=== PATIENT | male | born 1940 | race Caucasian/White ===

== ENCOUNTER → 2018-05-13 11:56 | Outpatient (CLI) | payer MEDICARE, SELFPAY ==
[2018-05-13 13:50] LABS: Color, Urine Yellow (Yellow); Glucose, Dipstick Normal (Normal); Ketone-Dipstick Negative (Negative); Leukocyte Esterase-Dipstick Negative /ul (Negative); Nitrite-Dipstick Negative (Negative); Occult Blood-Urine Negative /ul (Negative); Protein-Dipstick Negative (Negative); Urine Bilirubin Dipstick Negative (Negative); Urine Clarity Clear (Clear); Urine Urobilinogen Normal (Normal)
[2018-05-13 13:55] LABS: Absolute Lymphocyte Count 2.27 X10^3/ul (0.83-4.51); Basophil# 0.03 X10^3/uL; Basophil% 0.4 % (0-1); Eosinophil# 0.13 X10^3/uL; Eosinophils% 1.9 % (0-5); Hematocrit 43.5 % (40-54); Hemoglobin 14.7 g/dl (13.0-16.5); Lymphocyte # 2.27 X10^3/ul (4.0); Lymphocyte % 32.4 % (19-41); Mean Corp Hgb Conc 33.8 g/gl (32-36); Mean Corpuscular Hgb 31.4 pg (27.0-32.0); Mean Corpuscular Volume 92.9 fL (80-94); Mean Platelet Vol. 11.1 fl (6.2-12.0); Monocyte# 0.58 X10^3/uL; Monocyte% 8.3 % (0-10); Neutrophil # 3.98 X10^3/uL (2.7-7.7); Neutrophil % 56.7 % (47-70); Platelet Count 246 K/mm3 (150-450); RBC Distribution Width CV 12.5 % (11.6-14.6); RBC Distribution Width SD 41.9 fl (35.1-43.9); Red Blood Count 4.68 M/mm3 (4.6-6.2)
[2018-05-13 13:57] LABS: POSITIVE COUNT NO; POSITIVE DIFFERENTIAL NO; POSITIVE MORPHOLOGY NO
[2018-05-13 14:00] LABS: ALB/GLOB Ratio 0.9 RATIO (0.9-2.4); AST(SGOT) 19 U/L (15-37); Alanine Aminotransfer ALT/SGPT 31 U/L (16-61); Albumin, Serum 3.7 g/dL (3.2-5.0); Alkaline Phosphatase 82 U/L (45-117); Anion Gap 9 (5-15); BUN 29 mg/dL (7-18); BUN/Creat Ratio 18.4 RATIO (10-20); Calcium,Total 9.1 mg/dL (8.5-10.1); Chloride 104 mmol/L (98-107); Creatinine, Serum 1.58 mg/dL (0.70-1.30); EST Glomerular Filtration Rate 45 mL/min (>60); Est Glom Filt Rate - Afr Amer 55 mL/min (>60); Glucose 121 mg/dL (74-106); Potassium 4.5 mmol/L (3.5-5.1); Protein, Total 7.7 g/dL (6.4-8.2); Protein, Urine (Random) 9.9 mg/dL (<11.9); Protein:Creat Ratio 86 mg/g CRE (0-200); Sodium Level 141 mmol/L (136-145)
== END ==
PROVIDERS: Family Provider Family Medicine; PCP Family Medicine; Visit Provider Internal Medicine Rheumatology
DX: R76.8 Other specified abnormal immunological findings in serum (principal); M17.0 Bilateral primary osteoarthritis of knee; M21.40 Flat foot [pes planus] (acquired), unspecified foot; I10 Essential (primary) hypertension; E11.9 Type 2 diabetes mellitus without complications; E78.5 Hyperlipidemia, unspecified; G47.33 Obstructive sleep apnea (adult) (pediatric); Z86.711 Personal history of pulmonary embolism
CPT/HCPCS: 36415; 80053; 81002; 82570; 84156; 85025

== ENCOUNTER 2022-12-08 19:15 | Emergency (ER) | payer MEDICARE, SELFPAY ==
[2022-12-08 19:16] VITALS: BP 113/58; PULSE 98; RESP 16; TEMP 36.6; O2SAT 99; BMI 35.4
[2022-12-08 19:40] LABS: Bacteria 0 SEEN /hpf (None Seen); Mucous, Urine 0 SEEN /hpf (<or=2+); Red Blood Cells-Urine 0 SEEN /hpf (0-5); Squamous Epithelial Cells - UA 0 SEEN /hpf (0-5)
[2022-12-08 19:46] LABS: Color, Urine Yellow (Yellow); Glucose, Dipstick Normal (Normal); Ketone-Dipstick 5 mg/dl (Negative); Leukocyte Esterase-Dipstick 500 /ul (Negative); Nitrite-Dipstick Positive (Negative); Occult Blood-Urine 250 /ul (Negative); Protein-Dipstick 100 mg/dl (Negative); Specific Gravity, Urine 1.025 (1.002-1.030); Urine Clarity Cloudy (Clear); Urine Urobilinogen Normal (Normal)
[2022-12-08 19:47] LABS: Urine Bilirubin Dipstick 1 mg/dL (Negative)
[2022-12-08 19:54] LABS: White Blood Cells >100 SEEN /hpf (0-5)
--- NOTE | 2022-12-08 22:20 | EDS_ITS ---
HPI History of Present Illness Chief Complaint: Complaint Narrative Narrative: Patient is an 82-year-old male who has past medical history of hypertension hyperlipidemia pulmonary embolism and factor V Leiden deficiency currently on Xarelto. He states that today he felt like he has been having to urinate frequently. He states there is mild discomfort with doing so. He states he does not typically have a problem with urination and as he is gone multiple times today and feels that he is unable to control his bladder he has concern for infection and therefore comes in for evaluation. The patient denies any rectal pain or rectal discharge and states he does not have a history of prostate issues [facility] Home Medications aspirin 81 mg chewable tablet 81 mg PO DAILY@0800 01/21/16 [History Last Taken Unknown] duloxetine 60 mg capsule,delayed release 60 mg PO DAILY 01/21/16 [History Last Taken Unknown] lisinopril 10 mg tablet 10 mg PO DAILY 01/21/16 [History Last Taken Unknown] rosuvastatin 5 mg tablet (Crestor) 5 mg PO MOWEFR 01/21/16 [History Last Taken Unknown] rivaroxaban 15 mg tablet (Xarelto) 15 mg PO BIDCM ##60 02/07/17 [Rx Last Taken Unknown] cephalexin 500 mg capsule 500 mg PO TID 7 days #21 caps 12/08/22 [Rx Last Taken Unknown] phenazopyridine 200 mg tablet (Pyridium) 200 mg PO TID PRN pain 2 days #6 tabs 12/08/22 [Rx Last Taken Unknown] Allergy/AdvReac Type Severity Reaction Status Date / Time simvastatin AdvReac Other Verified 12/08/22 19:21 Social History Smoking Status: Former smoker ROS [facility] ED Constitutional Constitutional ED: Denies chills or fever(s) ENT ENT ED: Denies sore throat Cardiovascular Cardiovascular: Denies chest pain, palpitations or racing heartbeat Respiratory/Chest Respiratory/Chest: Denies cough or dyspnea Gastrointestinal Gastrointestinal: Denies abdominal pain, diarrhea, nausea or vomiting Genitourinary Genitourinary ED: Reports dysuria and urinary frequency; Denies hematuria Musculoskeletal Musculoskeletal: Denies back pain Integumentary Denies rash Neurologic Neurologic: Denies headache(s) or weakness Hematologic/Lymphatic Hematologic/Lymphatic: Reports easy bleeding and easy bruising EXAM Physical Exam Const Vital Signs: 12/08/22 19:16 Temperature 97.8 F Temperature Source Temporal Pulse Rate 98 Respiratory Rate 16 Blood Pressure 113/58 L Blood Pressure Mean 76 Pulse Ox 99 Oxygen Delivery Method Room Air Positive well nourished, well developed and obese General Appearance ED: well developed Nutritional Appearance: obese Eyes PERRL and EOMs intact bilaterally Neck supple Resp normal respiratory effort and clear to auscultation bilaterally Cardio regular rate and regular rhythm GI normal to inspection, nondistended, normoactive bowel sounds, non-distended and no masses GI Narrative: There is slight suprapubic tenderness to palpation. There is no organomegaly to suggest acute urinary retention. No voluntary guarding or rigidity. No pulsatile mass Auscultation: normoactive bowel sounds Palpation: soft Narrative: Normal genitalia. There is no blood or large from the urethral meatus. No phimosis or paraphimosis noted. No testicular swelling or masses. No soft tissue changes to suggest Jude's gangrene Back/Spine no CVA tenderness Extremity normal to inspection Neuro oriented x3 and CN's II-XII intact bilaterally Sensorium / Orientation: alert Psych mental status grossly normal Skin no rashes or lesions noted MDM MDM MDM Narrative Medical decision making narrative: Patient presented to the ER afebrile and normotensive and reported increased urinary frequency with mild dysuria. As he does not have derangement to his vital signs I do not feel there is need for work-up other than a UA at this time. The urine showed greater than 100 white blood cells but no obvious bacteria. At this time I do feel the patient is having a urinary tract infection. He has symptoms of urinary frequency and urgency and slight dysuria he is got mild suprapubic tenderness. He does not have CVA pain to suggest acut e pyelonephritis and there is no distended bladder on exam going against acute urinary retention. He is awake he is alert he is oriented and therefore my concern that he is progressing to a urosepsis is low especially with stable vital. Therefore at this time his urine will be sent for culture and will be started antibiotics but is otherwise safe for discharge Lab Data Attestation: I reviewed the patient's lab results. Labs: Laboratory Results - last 24 hr 12/08/22 19:35 Urine Color Yellow Urine Clarity Cloudy Urine pH 5.0 Ur Specific [place] 1.025 Urine Protein 100 H Urine Glucose (UA) Normal Urine Ketones 5 H Urine Occult Blood 250 H Urine Nitrite Positive H Urine Bilirubin 1 H Urine Urobilinogen Normal Ur Leukocyte Esterase 500 H Urine RBC 0 SEEN Urine WBC >100 SEEN Ur Squamous Epith Cells 0 SEEN Urine Bacteria 0 SEEN Urine Mucus 0 SEEN Discharge Plan Triage Chief Complaint: Complaint ED Provider: Santos Pathak Dx/Rx/DC Orders Clinical Impression: Urinary tract infection, Hypertension, Hyperlipidemia, Factor V deficiency, Current use of residential anticoagulation Instructions: ED Prostatitis, ED Urinary Tract Infections in Men Prescriptions: New cephalexin 500 mg capsule 500 mg PO TID 7 Days Qty: 21 0RF phenazopyridine [Pyridium] 200 mg tablet 200 mg PO TID PRN (Reason: pain) 2 Days Qty: 6 0RF No Action lisinopril 10 MG tablet 10 mg PO DAILY aspirin 81 MG tablet,chewable 81 mg PO DAILY@0800 rosuvastatin [Crestor] 5 MG tablet 5 mg PO MOWEFR duloxetine 60 MG capsule 60 mg PO DAILY rivaroxaban [Xarelto] 15 MG tablet 15 mg PO BIDCM Qty: 60 0RF Primary Care Provider: Dane Cobb Referrals: Dane Cobb MD [Primary Care Provider] - Activity Restrictions/Additional Instructions: Your history and work-up today indicate you have a urinary tract infection or early prostate infection. Take your medication as directed to resolve your symptoms which would typically take about 2 days. If you are not having improvement of symptoms or any further concerns please return to the ER for repeat evaluation Disposition Disposition: Home, Self Care Discharge Date/Time: 12/08/22 22:49
--- NOTE | 2022-12-08 22:28 | ED.RN ---
PT CALLING OUT FOR HELP AT THIS TIME. PT STATES THAT HE FELL DOWN IN THE CORNER OF THE ROOM AND COULDN'T GET UP. PT WAS FOUND STANDING IN DOORWAY IN HIS SOCKS WITH HIS PANTS AROUND HIPS LOWER BUTTOCKS. PT STATES HE DID NOT HIT HIS HEAD AND HE HAS NO INJURY. CHARGE NURSE LUCILLE MADE AWARE AND DR BUTLER. NO NEW ORDERS AT THIS TIME.
[2022-12-08] MEDS: Phenazopyridine 95 MG Tablet 190 MG PO (22:44)
[2022-12-08] MEDS: Cephalexin 250 MG Capsule 500 MG PO (22:45)
== END 2022-12-08 22:49 | disposition home or self-care (01) ==
PROVIDERS: Emergency Provider Emergency Medicine; PCP Family Medicine; Visit Provider Emergency Medicine
DX: N39.0 Urinary tract infection, site not specified (principal); D68.2 Hereditary deficiency of other clotting factors; I10 Essential (primary) hypertension; Z79.01 Long term (current) use of anticoagulants; E78.5 Hyperlipidemia, unspecified; Z87.891 Personal history of nicotine dependence; R35.0 Frequency of micturition; R30.0 Dysuria; E66.9 Obesity, unspecified
CPT/HCPCS: 99283; 81001; 87077; 87086; 87088; 87186

== ENCOUNTER 2022-12-11 10:19 | Observation (INO) | payer MEDICARE, SELFPAY ==
[2022-12-11 10:20] VITALS: BP 138/73; PULSE 106; RESP 14; TEMP 36.6; O2SAT 98; BMI 33.1
--- NOTE | 2022-12-11 10:43 | ED.VIS.GI ---
HPI HPI - GI History of Present Illness Chief Complaint: Weakness Informant: patient Abdominal Pain/Flank Pain Onset: - (No abdominal pain) Nausea/Vomiting/Emesis GI Symptom: Negative for Nausea or Vomiting Diarrhea/Melena/Hematochezia GI Symptom: Positive for Diarrhea; Negative for Melena or Hematochezia Onset: Days (3-4) Stool Quality: Positive for Watery; Negative for Black or Maroon Severity: Severe (More than 10/day) Associated Symptoms Associated Symptoms: Negative for Dysuria, Frequency or Hematuria Narrative Narrative: Patient was seen here 3 4 days ago, he was having urinary frequency and some discomfort like he maybe had a UTI, and indeed he did. He was having diarrhea prior to being seen in the emergency department as well, he was diagnosed with a urinary tract infection and placed on cephalexin which she has been taking. Diarrhea has progressed, he is having a lot of it and he is having rectal urgency with very little warning before he needs to have it, he denies any abdominal pain, nausea, vomiting, but admits that he is not eating and not drinking any fluids except for an occasional diet Pepsi. He is not drinking any water and when asked why he states it is because he does not like it. He states I was told that other beverages do not count. He is feeling very weak all over, denies any fevers or chills. He denies travel out of the area recently, no surgeries or hospitalizations in the last couple months, he has no history of C. difficile that he knows of, no known sick contacts with diarrhea recently, and he denies being on any antibiotics prior to this course in the last couple months (that he can recall). [facility] Medical History (Updated 12/11/22 @ 12:[address] Micah Love MD) Diabetes Factor V deficiency HTN (hypertension) Hx pulmonary embolism Home Medications duloxetine 60 mg capsule,delayed release 60 mg PO DAILY 01/21/16 [History Last Taken Unknown] lisinopril 10 mg tablet 10 mg PO DAILY 01/21/16 [History Last Taken Unknown] rosuvastatin 5 mg tablet (Crestor) 5 mg PO MOWEFR 01/21/16 [History Last Taken Unknown] rivaroxaban 15 mg tablet (Xarelto) 15 mg PO BIDCM ##60 02/07/17 [Rx Last Taken Unknown] eluxadoline 100 mg tablet (Viberzi) 200 mg PO DAILY 12/11/22 [History Last Taken Unknown] isosorbide mononitrate 30 mg tablet,extended release 24 hr 30 mg PO DAILY 12/11/22 [History Last Taken Unknown] omega-3 fatty acids 1,000 mg PO DAILY 12/11/22 [History Last Taken Unknown] saxagliptin 2.5 mg tablet 2.5 mg PO DAILY 12/11/22 [History Last Taken Unknown] Allergy/AdvReac Type Severity Reaction Status Date / Time simvastatin AdvReac Other Verified 12/11/22 10:22 Social History Smoking Status: Former smoker ROS ROS ED Constitutional Constitutional ED: Reports fatigue and weakness; Denies body ache(s), chills or fever(s) Eyes Eyes: Denies change in vision or diplopia ENT ENT ED: Denies rhinorrhea or sore throat Cardiovascular Cardiovascular: Denies chest pain or palpitations Respiratory/Chest Respiratory/Chest: Denies cough or dyspnea Gastrointestinal Gastrointestinal: Reports diarrhea; Denies abdominal pain, nausea or vomiting Genitourinary Genitourinary ED: Denies dysuria or hematuria Musculoskeletal Musculoskeletal: Reports other Details: Arthralgias in hips, knees, ankles mostly when trying to use them ; Denies back pain or neck pain Integumentary Denies abscess or rash Neurologic Neurologic: Denies headache(s), paresthesias or weakness Psychiatric Psychiatric: Denies anxiety or suicidal thoughts EXAM Physical Exam Const Vital Signs: 12/11/22 10:20 12/11/22 10:34 Temperature 97.9 F Temperature Source Temporal Pulse Rate 106 H Respiratory Rate 14 Respiratory Effort Normal Respiratory Pattern Normal Blood Pressure 138/73 H Blood Pressure Mean 94 Pulse Ox 98 Oxygen Delivery Method Room Air Positive well nourished, well developed and obese Constitutional Narrative: Well-appearing in no distress General Appearance ED: well developed and NAD Nutritional Appearance: obese HEENT Reports moist mucous membranes normocephalic and atraumatic Eyes PERRL and EOMs intact bilaterally Neck full ROM, no lymphadenopathy and supple Resp normal respiratory effort and clear to auscultation bilaterally Cardio regular rate, regular rhythm and no murmurs Cardio Narrative: Mildly tachycardic GI non-tender and non-distended Auscultation: normoactive bowel sounds Palpation: soft Back/Spine no CVA tenderness General Back: other FROM Extremity normal to inspection General Extremety ED: Negative for edema, pulses abnormal or tenderness General Extremity: Negative for edema or pulses abnormal Neuro oriented x3, CN's II-XII intact bilaterally and no sensory deficits noted Sensorium / Orientation: awake and alert Motor Exam: strength 5/5 throughout Skin no rashes or lesions noted and no wounds MDM MDM MDM Narrative Medical decision making narrative: I reviewed the patient's recent urine culture from when he was diagnosed with a urine infection 3 days ago; it shows E. coli that is sensitive to the antibiotic he is on, 80-100,000 CFU per mL. Patient was given IV fluids while labs were obtained. He does have HORTENCIA consistent with dehydration. We given some IV fluids here. He did not have major improvement and still feeling very ill, he feels like he is too sick to go home. He is having active diarrhea here in emergency department, I am going to send for C. difficile and enteric bacterial panel testing. He does appear to still have infection in the urine, and as above appears to be on an appropriate antibiotic for that. Patient is having some mild gross hematuria, there are no clots or retention and it is transparent at this time. Discussed with hospitalist. Lab Data Attestation: I reviewed the patient's lab results. Labs: Laboratory Results - last 24 hr 12/11/22 12/11/22 12/11/22 10:50 10:50 11:25 WBC 13.1 H RBC 4.28 L Hgb 13.3 Hct 40.0 MCV 93.5 MCH 31.1 MCHC 33.3 RDW Std Deviation 44.6 H RDW Coeff of Jarad 13.0 Plt Count 232 MPV 10.9 Immature Gran % (Auto) 0.500 Neut % (Auto) 85.9 H Lymph % (Auto) 5.3 L [place] % (Auto) 6.7 Eos % (Auto) 1.2 Baso % (Auto) 0.4 Absolute Neuts (auto) 11.2 H Absolute Lymphs (auto) 0.69 L Nucleated RBC % 0 Sodium 136 Potassium 3.7 Chloride 99 Carbon Dioxide 24.0 Anion Gap 13 BUN 62 H Creatinine 2.95 H Estim Creat Clear Calc 18.68 Est GFR (MDRD) Af Amer 26 L Est GFR (MDRD) Non-Af 22 L BUN/Creatinine Ratio 21.0 H Glucose 115 H Calcium 9.1 Total Bilirubin 0.80 AST 45 H ALT 29 Alkaline Phosphatase 115 Total Protein 7.9 Albumin 3.0 L Globulin 4.9 H Albumin/Globulin Ratio 0.6 L Urine Color SEE COMMENT BELOW Urine Clarity Sl. Cloudy Urine pH 5.0 Ur Specific [place] 1.020 Urine Protein 100 H Urine Glucose (UA) Normal Urine Ketones 5 H Urine Occult Blood 150 H Urine Nitrite Positive H Urine Bilirubin 6 H Urine Urobilinogen 8 H Ur Leukocyte Esterase 500 H Urine RBC 10-25 SEEN Urine WBC 25-50 SEEN Ur Squamous Epith Cells 0-5 SEEN Urine Bacteria 2+ Coarse Granular Casts 0-5 SEEN Urine Mucus 0 SEEN Discharge Plan Triage Chief Complaint: Weakness Other Complaint: Diarrhea ED Provider: Micah Love Dx/Rx/DC Orders Clinical Impression: HORTENCIA (acute kidney injury), Urinary tract infection, Acute dehydration, Acute diarrhea, Anticoagulated Prescriptions: No Action lisinopril 10 MG tablet 10 mg PO DAILY rosuvastatin [Crestor] 5 MG tablet 5 mg PO MOWEFR duloxetine 60 MG capsule 60 mg PO DAILY Xarelto 15 MG tablet 15 mg PO BIDCM Qty: 60 0RF isosorbide mononitrate 30 mg Tablet Extended Release 24 Hr 30 mg PO DAILY [place] 3 Capsule 1,000 mg PO DAILY saxagliptin 2.5 mg Tablet 2.5 mg PO DAILY Viberzi 100 mg Tablet 200 mg PO DAILY Rx Instructions: must administer with a meal/food Primary Care Provider: Dane Cobb Referrals: Dane Cobb MD [Primary Care Provider] - Disposition Disposition: Acute Care Hospital [facility]
[2022-12-11 11:06] LABS: Absolute Lymphocyte Count 0.69 X10^3/uL (0.83-4.51); Absolute Neutrophil Count 11.2 X10^3/uL (2.0-7.7); Basophil# 0.05 X10^3/uL; Basophil% 0.4 % (0-1); Eosinophil# 0.16 X10^3/uL; Eosinophils% 1.2 % (0-5); Hemoglobin 13.3 g/dL (13.0-16.5); Lymphocyte # 0.69 X10^3/ul (0.83-4.51); Lymphocyte % 5.3 % (19-41); Mean Corp Hgb Conc 33.3 g/dL (32-36); Mean Corpuscular Hgb 31.1 pg (27.0-32.0); Mean Corpuscular Volume 93.5 fL (80-94); Mean Platelet Vol. 10.9 fl (6.2-12.0); Monocyte# 0.87 X10^3/uL; Monocyte% 6.7 % (0-10); NRBC Flagged by Analyzer 0 % (0-5); Neutrophil # 11.23 X10^3/uL (2.7-7.7); Neutrophil % 85.9 % (47-70); Platelet Count 232 K/mm3 (150-450); RBC Distribution Width SD 44.6 fl (35.1-43.9); Red Blood Count 4.28 M/mm3 (4.6-6.2); White Blood Count 13.1 K/mm3 (4.4-11.0)
[2022-12-11 11:21] LABS: ALB/GLOB Ratio 0.6 RATIO (0.9-2.4); AST(SGOT) 45 U/L (15-37); Alanine Aminotransfer ALT/SGPT 29 U/L (16-61); Alkaline Phosphatase 115 U/L (45-117); Anion Gap 13 (5-15); BUN 62 mg/dL (7-18); Calcium,Total 9.1 mg/dL (8.5-10.1); Chloride 99 mmol/L (98-107); Creatinine, Serum 2.95 mg/dL (0.70-1.30); EST Glomerular Filtration Rate 22 mL/min (>60); Est Glom Filt Rate - Afr Amer 26 mL/min (>60); Estimated Creatinine Clearance 18.68 ml/min; Globulin 4.9 g/dL (2.2-4.2); Glucose 115 mg/dL (74-106); Potassium 3.7 mmol/L (3.5-5.1); Protein, Total 7.9 g/dL (6.4-8.2); Sodium Level 136 mmol/L (136-145)
[2022-12-11 11:31] LABS: Mucous, Urine 0 SEEN /hpf (<or=2+)
[2022-12-11 11:32] LABS: Glucose, Dipstick Normal (Normal); Ketone-Dipstick 5 mg/dl (Negative); Leukocyte Esterase-Dipstick 500 /ul (Negative); Nitrite-Dipstick Positive (Negative); Occult Blood-Urine 150 /ul (Negative); Protein-Dipstick 100 mg/dl (Negative); Urine Clarity Sl. Cloudy (Clear); Urine Urobilinogen 8 mg/dl (Normal)
[2022-12-11 11:33] LABS: Color, Urine SEE COMMENT BELOW (Yellow); Urine Bilirubin Dipstick 6 mg/dL (Negative)
[2022-12-11 11:39] LABS: Bacteria 2+ /hpf (None Seen); Coarse Granular Cast 0-5 SEEN /lpf (0-5 /lpf); Red Blood Cells-Urine 10-25 SEEN /hpf (0-5); Squamous Epithelial Cells - UA 0-5 SEEN /hpf (0-5); White Blood Cells 25-50 SEEN /hpf (0-5)
[2022-12-11] MEDS: 0.9% Normal Saline 1,000 ML 125 ML IV (12:55)
--- NOTE | 2022-12-11 13:07 | CT_ITS ---
STUDY: CT ABDOMEN AND PELVIS WITHOUT CONTRAST REASON FOR EXAM: Male, 82 years old. Abdominal pain -- ORAL contrast only RADIATION DOSAGE (If Supplied By Facility): CTDIvol = ( 16.69 ) mGy, DLP = ( 867.56 ) mGycm TECHNIQUE: Transaxial images were obtained from the dome of the diaphragm to the symphysis pubis with oral contrast, and without intravenous contrast. Sagittal and coronal images were reconstructed. Individualized dose optimization techniques were used for this CT. COMPARISON: Comparison is made with prior study of 02/06/2017. FINDINGS: Findings suggestive of gynecomastia in the right breast. Mild degree of increased linear markings at the left lung base suggestive of scarring. Coronary artery calcification. There is decreased attenuation of the liver consistent with steatosis. Hepatomegaly. Prior cholecystectomy. Normal spleen. Normal pancreas. The patient is status post resection of the left adrenal gland. Mild degree of nonspecific bilateral perinephric stranding. No intrarenal calcifications are seen. Surgical clips are seen in the left upper quadrant. There is a small hiatal hernia. Normal small intestine. There are multiple colonic diverticula consistent with diverticulosis. The appendix is visualized and appears normal. There is diffuse atherosclerotic calcification of the abdominal aorta, without a demonstrated aneurysm. Normal inferior vena cava. Normal retroperitoneum. There is evidence of diffuse bladder wall thickening. The prostate is enlarged and measures 5.4 cm x 3.7 cm. Central prostatic calcifications are seen. Normal abdominal wall. There are degenerative changes of the visualized lumbar spine. CT/Abdomen/Pel W ORAL Cont Only IMPRESSION: Mild degree of increased linear markings at the left lung base suggestive of scarring. Questionable gynecomastia in the right breast. Hepatomegaly and diffuse fatty infiltration of the liver. Status post left adrenal resection. Sigmoid diverticulosis. Diffuse bladder wall thickening and prostatic enlargement. Electronically Signed: Arturo Sandhu MD at 15:12 EST ,
--- NOTE | 2022-12-11 13:09 | PCM.HP.STD ---
HPI - General General Date of Admission: 12/11/22 Date of Service: 12/11/22 Chief Complaint: Weakness HPI Narrative ADAN PATEL, is a 82 M who presented to the emergency department at [facility] on 12/11/2022 complaining of generalized weakness. Patient came in on 12/08/2021 complaining of urinary frequency and dysuria. At that time he was diagnosed with a urinary tract infection based off of his UA and a culture was sent. He was sent home with Keflex at that time. His urine culture has since grown out pansensitive E. coli however the patient has developed generalized weakness with severe diarrhea. The patient indicates he has diarrhea at baseline related to irritable bowel syndrome but his diarrhea has significantly worsened since he started taking antibiotics. He reports that he is having 7-8 nonbloody watery bowel movements a day. His p.o. intake has been poor as he states he is just not hungry. He states he had very minimal amounts to drink or eat since Sunday. Patient denies any changes in his urine output. He has some intermittent abdominal cramping. He reports feeling weak all over but denies any fever or chills, tingling, numbness or focal deficits. He has never had previous history of C. difficile or any contact with anybody was had C. difficile. Vital signs on presentation show a temperature of 97.8, heart rate 98, blood pressure 113/58, respiratory rate 16 and oxygen saturations are 99% room air. CBC shows a leukocytosis with a left shift. Chemistry panel shows a markedly elevated BUN and creatinine from baseline at 62 and 2.95 (baseline appears to be 1.4-1.6 however we have no recent lab). He has mild hyperglycemia with a sugar of 115 and his AST is mildly elevated 45. His UA shows an elevated specific gravity at 1.02 and shows proteinuria and ketones at 5. In the emergency department he was treated with IV fluids and enteric panel and C. difficile were ordered. Still pending on admission. Request for admission was made based on his severe weakness and renal disease/dehydration. [facility] Medical History Depression Diabetes Factor V deficiency HTN (hypertension) Hx pulmonary embolism Hyperlipidemia IBS (irritable bowel syndrome) Stage 3b chronic kidney disease (CKD) Home Medications duloxetine 60 mg capsule,delayed release 60 mg PO DAILY 01/21/16 [History Last Taken Unknown] lisinopril 10 mg tablet 10 mg PO DAILY 01/21/16 [History Last Taken Unknown] cephalexin 500 mg capsule 500 mg PO TID antibiotic 12/11/22 [History Last Taken 12/10/22] clopidogrel 75 mg tablet 75 mg PO DAILY blood thinner 12/11/22 [History Last Taken 12/10/22] eluxadoline 100 mg tablet (Viberzi) 200 mg PO DAILY 12/11/22 [History Last Taken Unknown] isosorbide mononitrate 30 mg tablet,extended release 24 hr 30 mg PO DAILY 12/11/22 [History Last Taken Unknown] loperamide 2 mg capsule 2 mg PO Q6H PRN Diarrhea 12/11/22 [History Last Taken Unknown] omega-3 fatty acids 1,000 mg capsule 1,000 mg PO DAILY supplement 12/11/22 [History Last Taken 12/10/22] rivaroxaban 15 mg tablet (Xarelto) 15 mg PO BIDCM blood thinner 12/11/22 [History Last Taken 12/10/22] rosuvastatin 5 mg tablet 5 mg PO DAILY CHOLESTEROL 12/11/22 [History Last Taken 12/10/22] saxagliptin 2.5 mg tablet 2.5 mg PO DAILY 12/11/22 [History Last Taken Unknown] Allergy/AdvReac Type Severity Reaction Status Date / Time simvastatin AdvReac Other Verified 12/11/22 10:22 no significant family history no surgical history Social History (Updated 12/11/22 @ 13:[address] Neena Fritz, DO) Smoking Status: Former smoker alcohol intake: never substance use type: does not use ROS Constitutional Constitutional: Reports anorexia, malaise and weakness; Denies change in weight, chills, fatigue, fever(s), night sweats or other Eyes Eyes: Denies blurry vision, change in eye color, change in vision, discharge from eye(s), double vision, erythema, eye pain, loss of vision or other ENT HEENT: Denies abnormal hearing, dysphagia, ear pain, epistaxis, headache(s), hearing loss, nasal congestion, nasal discharge, post nasal drip, sinus pressure, sore throat or other Cardiovascular Cardiovascular: Denies chest pain, claudication, dyspnea on exertion, edema, lightheadedness, orthopnea, palpitations, paroxysmal nocturnal dyspnea, rapid heart rate, syncope or other Respiratory/Chest Respiratory/Chest: Denies cough, dyspnea, excessive phlegm production, hemoptysis, productive cough, shortness of breath at rest, shortness of breath with exertion, wheezing or other Gastrointestinal Gastrointestinal: Reports abdominal pain and diarrhea; Denies coffee ground emesis, constipation, dyspepsia, hematemesis, hematochezia, loose stools, melena, nausea, vomiting or other Genitourinary Genitourinary: Reports difficulty urinating, nocturia, urinary frequency, urinary hesitancy and urinary incontinence; Denies burning urination, dysuria, hematuria, urinary urgency or other Musculoskeletal Musculoskeletal: Denies arthralgias, back pain, joint pain, joint stiffness, joint swelling, myalgias, neck pain or other Neurologic Neurologic: Denies abnormal gait, abnormal speech, confusion, disequilibrium, dizziness, focal weakness, headache(s), numbness, paresthesias, seizure-like activity, seizures, syncope, tingling, tremor(s) or other Psychiatric Psychiatric: Reports depression; Denies anxiety, homicidal ideation, suicidal ideation or other Endocrine Endocrinology: Denies change in body appearance, cold intolerance, excessive sweating, heat intolerance, polydipsia, polyuria or other Hematologic/Lymphatic Hematologic/Lymphatic: Denies anemia, easy bleeding, easy bruising, lymphadenopathy or other Allergic/Immunologic Allergic/Immunologic: Denies rhinitis, hives, eczemia, asthma or other Vital Signs Vital Signs Vital Signs: 12/11/22 10:20 12/11/22 10:34 Temperature 97.9 F Temperature Source Temporal Pulse Rate 106 H Respiratory Rate 14 Respiratory Effort Normal Respiratory Pattern Normal Blood Pressure 138/73 H Blood Pressure Mean 94 Pulse Ox 98 Oxygen Delivery Method Room Air Weight Weight: 98.974 kg Body Mass Index (BMI) 33.1 Physical Exam Const alert, oriented x3, no apparent distress and well nourished Constitutional Narrative: Obese, older, white male, sitting up in bed in the emergency department, appears comfortable, nontoxic General Appearance: cooperative HEENT normocephalic and head/scalp atraumatic HEENT Narrative: Mild hearing loss, mucous membranes are dry, Mallampati 3, no thrush Eyes PERRL, EOMs intact bilaterally and conjunctivae normal Eyes Narrative: No scleral icterus Neck no lymphadenopathy, supple and no carotid bruits Neck Narrative: Trachea midline, no thyroid enlargement or nodules noted Resp normal respiratory effort, no retractions, no use of accessory muscles and clear to auscultation bilaterally Resp Narrative: Mildly diminished diffusely but no adventitious sounds noted Auscultation: Negative for rales, rhonchi or wheezes Cardio regular rate, regular rhythm, S1 normal heart sound, S2 normal heart sound, no murmurs, no rub, no gallops and no clicks GI GI Narrative: Mild diffuse tenderness, bowel sounds are hyperactive, abdomen is nondistended and soft Extremity no clubbing, cyanosis or edema Extremity Narrative: 2+ pedal pulses Skin no rashes or lesions noted, no wounds, skin turgor normal, no jaundice, no petechiae and no mottling Neuro oriented x3, CN's II-XII intact bilaterally, moves all extremities and no focal motor deficits Neuro Narrative: Generalized weakness noted but no focal deficit Speech: speech normal Psych affect normal Psych Narrative: Very pleasant, appropriately interactive Results Lab / Micro Data Attestation: I reviewed the patient's lab results. Result Diagrams: 12/11/22 10:50 12/11/22 10:50 Labs: Laboratory Results - last 24 hr 12/11/22 10:50: WBC 13.1 H, RBC 4.28 L, Hgb 13.3, Hct 40.0, MCV 93.5, MCH 31.1, MCHC 33.3, RDW Std Deviation 44.6 H, RDW Coeff of Jarad 13.0, Plt Count 232, MPV 10.9, Immature Gran % (Auto) 0.500, Neut % (Auto) 85.9 H, Lymph % (Auto) 5.3 L, [place] % (Auto) 6.7, Eos % (Auto) 1.2, Baso % (Auto) 0.4, Absolute Neuts (auto) 11.2 H, Absolute Lymphs (auto) 0.69 L, Nucleated RBC % 0 12/11/22 10:50: Sodium 136, Potassium 3.7, Chloride 99, Carbon Dioxide 24.0, Anion Gap 13, BUN 62 H, Creatinine 2.95 H, Estim Creat Clear Calc 18.68, Est GFR (MDRD) Af Amer 26 L, Est GFR (MDRD) Non-Af 22 L, BUN/Creatinine Ratio 21.0 H, Glucose 115 H, Calcium 9.1, Total Bilirubin 0.80, AST 45 H, ALT 29, Alkaline Phosphatase 115, Total Protein 7.9, Albumin 3.0 L, Globulin 4.9 H, Albumin/Globulin Ratio 0.6 L 12/11/22 11:25: Urine Color SEE COMMENT BELOW, Urine Clarity Sl. 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 difficile and enteric panel are pending -Lactoferrin pending -CT of the abdomen pelvis pending -Antiemetics as needed -Clear liquid diet advance as tolerated -No history of C. difficile E. coli complicated UTI -Sensitive to Keflex therefore he has had a couple days of treatment -We will continue antibiotics but utilize IV with ceftriaxone 1 g daily for the next 8 days to complete a total of 10 days for complicated urinary tract infection HORTENCIA on CKD stage IIIb secondary to dehydration -No recent chemistry panels in our system however previously has baseline serum creatinine was between 1.4 and 1.6 -Serum creatinine on admission was 2.95 -LR at 125 cc/h -Hold lisinopril -If serum creatinine does not improve will pursue further work-up and consider Blackmon catheter -CT of the abdomen pelvis should tell us if he is having significant retention as well Poor p.o. intake -Patient without significant appetite -Start clear liquids and advance as tolerated Leukocytosis -Likely related to acute dehydration and hemoconcentration -Repeat CBC in a.m. Debility/generalized weakness -Likely related to decreased p.o. intake/dehydration/UTI/possible C. difficile -PT/OT consultation -Case management follow-up Factor V Leiden deficiency with history of PE -Patient is chronically anticoagulated with Xarelto -With renal dysfunction we will hold Xarelto and placed on Eliquis 2.5 mg twice daily -Transition back to Xarelto once serum creatinine normalizes Irritable bowel syndrome -Hold home eluxadoline Hypertension -Continue isosorbide mononitrate -Hold lisinopril with renal dysfunction -As needed hydralazine for systolic blood pressure greater 160 DM-2 -Hold home oral agents -Sliding scale 3 times daily -Accu-Cheks as ordered Hyperlipidemia -Continue rosuvastatin DVT prophylaxis -Heparin 3 times daily CODE STATUS -Full code as per discussion prior to admission Charges/Coding Visit Charges Inpatient E&M: 11578 Init Hosp L3
[2022-12-11 13:13] VITALS: BP 154/74; PULSE 89; RESP 14; TEMP 36.6; O2SAT 96
[2022-12-11 14:25] LABS: CPK Total, Creatine Kinase 444 U/L (39-308)
[2022-12-11 15:49] VITALS: BP 129/65; PULSE 70; RESP 18; TEMP 36.7; O2SAT 95
[2022-12-11 16:15] VITALS: BMI 34.9
[2022-12-11] MEDS: Ceftriaxone 1 GM/50 ML BAG IV (16:22)
[2022-12-11] MEDS: 0.9% Saline Lock 10 ML Syringe IV ×2 (16:28→17:00)
[2022-12-11] MEDS: Lactated Ringers 1,000 ML 125 ML IV (16:33)
[2022-12-11 16:35] LABS: Bedside Glucose 84 mg/dL (74-106)
[2022-12-11] MEDS: Acetaminophen 325 MG Tablet 650 MG PO (17:00)
[2022-12-11 19:20] VITALS: O2SAT 95
[2022-12-11 21:40] VITALS: BP 106/49; PULSE 69; RESP 16; TEMP 36.6; O2SAT 92
[2022-12-11] MEDS: APIXABAN 2.5 MG TABLET (WCH) PO (21:53)
[2022-12-11] MEDS: Rosuvastatin Calcium 5 MG Tablet PO (21:53)
[2022-12-12 00:25] LABS: Bedside Glucose 123 mg/dL (74-106)
[2022-12-12] MEDS: Lactated Ringers 1,000 ML 125 ML IV ×3 (00:49→18:48)
[2022-12-12 02:55] VITALS: BP 160/77; PULSE 92; RESP 18; TEMP 36.6; O2SAT 95
[2022-12-12 04:00] VITALS: BP 132/56
[2022-12-12 06:56] LABS: Bedside Glucose 102 mg/dL (74-106)
[2022-12-12 07:00] LABS: Absolute Lymphocyte Count 0.83 X10^3/uL (0.83-4.51); Absolute Neutrophil Count 5.9 X10^3/uL (2.0-7.7); Basophil# 0.03 X10^3/uL; Basophil% 0.4 % (0-1); Eosinophil# 0.21 X10^3/uL; Eosinophils% 2.8 % (0-5); Hematocrit 36.8 % (40-54); Lymphocyte # 0.83 X10^3/ul (0.83-4.51); Lymphocyte % 10.9 % (19-41); Mean Corp Hgb Conc 32.6 g/dL (32-36); Mean Corpuscular Hgb 29.9 pg (27.0-32.0); Mean Corpuscular Volume 91.8 fL (80-94); Mean Platelet Vol. 11.2 fl (6.2-12.0); Monocyte# 0.61 X10^3/uL; NRBC Flagged by Analyzer 0 % (0-5); Neutrophil # 5.88 X10^3/uL (2.7-7.7); Neutrophil % 77.4 % (47-70); Platelet Count 222 K/mm3 (150-450); RBC Distribution Width CV 13.1 % (11.6-14.6); Red Blood Count 4.01 M/mm3 (4.6-6.2); White Blood Count 7.6 K/mm3 (4.4-11.0)
[2022-12-12 07:29] LABS: ALB/GLOB Ratio 0.6 RATIO (0.9-2.4); AST(SGOT) 38 U/L (15-37); Alanine Aminotransfer ALT/SGPT 27 U/L (16-61); Albumin, Serum 2.5 g/dL (3.2-5.0); Alkaline Phosphatase 99 U/L (45-117); Anion Gap 9 (5-15); BUN 52 mg/dL (7-18); BUN/Creat Ratio 26.3 RATIO (10-20); Calcium,Total 8.8 mg/dL (8.5-10.1); Chloride 105 mmol/L (98-107); Creatinine, Serum 1.98 mg/dL (0.70-1.30); EST Glomerular Filtration Rate 35 mL/min (>60); Est Glom Filt Rate - Afr Amer 42 mL/min (>60); Estimated Creatinine Clearance 27.83 ml/min; Globulin 3.9 g/dL (2.2-4.2); Glucose 103 mg/dL (74-106); Magnesium 2.4 mg/dL (1.6-2.6); Phosphorus 2.8 mg/dL (2.5-4.9); Potassium 3.5 mmol/L (3.5-5.1); Protein, Total 6.4 g/dL (6.4-8.2); Sodium Level 137 mmol/L (136-145)
[2022-12-12 07:31] LABS: CPK Total, Creatine Kinase 252 U/L (39-308)
[2022-12-12 08:13] VITALS: BP 122/62; PULSE 73; RESP 22; TEMP 36.6; O2SAT 93
[2022-12-12] MEDS: APIXABAN 2.5 MG TABLET (WCH) PO ×2 (09:02→21:59)
[2022-12-12] MEDS: DULoxetine Hcl 60 MG Capsule PO (09:03)
[2022-12-12] MEDS: Isosorbide Mononitrate 30 MG Tablet PO (09:03)
--- NOTE | 2022-12-12 10:05 | CASEMGMT ---
Addendum entered by Gwendolyn Lopez 12/12/22 16:09: Noted therapy evals. RN CM back into pt room, pt sitting up in chair. Pt aware that no therapy is recommended. Pt agreeable. Plan: DC home. Original Note: ORTIZ JOHNS Assessment: Face to Face with pt for initial transition planning/care coordination assessment. RN ANDREAS introduced self and role at [facility], pt voices understanding and consents to assessment. Pt is A/O x4 and answers all questions appropriately at this time. Pt lying in bed in no distress on RA. Care providers, pharmacy, and demographics verified/updated. Admitting Dx: dehydration PCP:Jordyn Specialists:SAMANTHA River; bettina Matthews Preferred Pharmacy: [facility] Yash Insurance: [employer] Prescription Benefit: yes LNOK: Radha Vazquez, friend Living Arrangements: Pt lives alone in a two story home with 3 steps to enter with a rail. Pt reports he is I in ADL's and denies concerns at home. Transportation: Pt drives self and denies concerns with transportation. DME/HHC/SNF: Pt has a CPAP at home as well as a BGM with supply of strips and lancets but pt states he doesn't really check his blood sugars. Pt denies hx of HHC or SNF stays. Pt states no concerns with going home at time of dc. Pt states he has not been out of bed much since being here. Therapy is ordered but has not seen pt yet. Pt aware we will see how he does with therapy and ORTIZ JOHNS will be back to discuss. Pt states no further concerns/needs. CM to follow. Advised pt to ask CM if any further question/concerns/needs arise, voices understanding. Pt Goal: Home Plan: Home pending therapy eval.
[2022-12-12] MEDS: Ceftriaxone 1 GM/50 ML BAG IV (10:30)
[2022-12-12] MEDS: 0.9% Saline Lock 10 ML Syringe IV ×2 (10:30→16:11)
[2022-12-12] MEDS: Insulin Lispro 100 UNIT/ML INSULN.PEN SC (11:08)
[2022-12-12 11:20] LABS: Bedside Glucose 163 mg/dL (74-106)
--- NOTE | 2022-12-12 13:29 | PN.HOSP_ITS ---
Reason for Visit Reason for Visit: Generalized weakness Subjective Subjective Patient indicates he is feeling much better today. He had 1 bowel movement this morning but the diarrhea has pretty much subsided. He was able to walk independently to the bathroom. His oral intake has improved. Serum creatinine is trending down. Objective Data Objective Data Vital Signs: Vital Signs Temp Pulse Resp BP Pulse Ox O2 Del Method 97.8 F 73 22 H 122/62 H 93 Room Air 12/12/22 08:13 12/12/22 08:13 12/12/22 08:13 12/12/22 08:13 12/12/22 08:13 12/12/22 09:30 Oxygen Delivery Method Room Air Weight: 104.326 kg Body Mass Index (BMI) 34.9 Intake & Output: Intake and Output for Last 24 Hours 12/10/22 12/11/22 12/12/22 23:59 23:59 23:59 Intake Total 810.42 / 810.42 2850 / 2850 Balance 810.42 / 810.42 2850 / 2850 Lab / Micro Data Result Diagrams: 12/12/22 06:20 12/12/22 06:20 Labs: Laboratory Results - last 24 hr 12/11/22 10:50: Total Creatine Kinase 444 H 12/11/22 15:58: POC Glucose 84 12/11/22 21:39: POC Glucose 123 H 12/12/22 06:20: WBC 7.6, RBC 4.01 L, Hgb 12.0 L, Hct 36.8 L, MCV 91.8, MCH 29.9, MCHC 32.6, RDW Std Deviation 44.0 H, RDW Coeff of Jarad 13.1, Plt Count 222, MPV 11.2, Immature Gran % (Auto) 0.500, Neut % (Auto) 77.4 H, Lymph % (Auto) 10.9 L, [place] % (Auto) 8.0, Eos % (Auto) 2.8, Baso % (Auto) 0.4, Absolute Neuts (auto) 5.9, Absolute Lymphs (auto) 0.83, Nucleated RBC % 0 12/12/22 06:20: Sodium 137, Potassium 3.5, Chloride 105, Carbon Dioxide 23.0, Anion Gap 9, BUN 52 H, Creatinine 1.98 H, Estim Creat Clear Calc 27.83, Est GFR (MDRD) Af Amer 42 L, Est GFR (MDRD) Non-Af 35 L, BUN/Creatinine Ratio 26.3 H, Glucose 103, Calcium 8.8, Phosphorus 2.8, Magnesium 2.4, Total Bilirubin 0.50, AST 38 H, ALT 27, Alkaline Phosphatase 99, Total Protein 6.4, Albumin 2.5 L, Globulin 3.9, Albumin/Globulin Ratio 0.6 L 12/12/22 06:20: Total Creatine Kinase 252 12/12/22 06:21: POC Glucose 102 12/12/22 11:01: POC Glucose 163 H Micro: Microbiology 12/11/22 16:45 Stool Enteric Bacteriology - Final 12/11/22 16:45 Stool C. difficile DNA Amplification - Final 12/11/22 16:45 Stool Stool Lactoferrin - Final Radiography Diagnostic Testing: Radiology Impression Abdomen CT 12/11/22 13:07 IMPRESSION: Mild degree of increased linear markings at the left lung base suggestive of scarring. Questionable gynecomastia in the right breast. Hepatomegaly and diffuse fatty infiltration of the liver. Status post left adrenal resection. Sigmoid diverticulosis. Diffuse bladder wall thickening and prostatic enlargement. Electronically Signed: Arturo Sandhu MD at 15:12 EST , Physical Exam Const alert, oriented x3, no apparent distress and well nourished Constitutional Narrative: Obese, older, white male, lying in bed, appears comfortable, nontoxic General Appearance: cooperative HEENT normocephalic, head/scalp atraumatic and moist oral mucous membranes Head and Scalp: normocephalic Resp normal respiratory effort, no retractions, no use of accessory muscles and clear to auscultation bilaterally Resp Narrative: Mildly diminished diffusely but no adventitious sounds noted Auscultation: Negative for rales, rhonchi or wheezes Cardio regular rate, regular rhythm, S1 normal heart sound, S2 normal heart sound, no murmurs, no rub, no gallops and no clicks GI normal to inspection, nondistended, normoactive bowel sounds, soft to palpation and non-tender Extremity no clubbing, cyanosis or edema Extremity Narrative: 2+ pedal pulses Neuro oriented x3, moves all extremities and no focal motor deficits Speech: speech normal Psych affect normal Psych Narrative: Very pleasant, appropriately interactive Assessment & Plan Assessment/Plan (1) Acute diarrhea: (2) Acute dehydration: (3) HORTENCIA (acute kidney injury): (4) Urinary tract infection: (5) 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 difficile are negative -Start as needed Imodium -CT of the abdomen pelvis shows no significant abnormalities in the colon E. coli complicated UTI -Sensitive to Keflex therefore he has had a couple days of treatment -We will continue antibiotics but utilize IV with ceftriaxone 1 g daily for the next 7 days to complete a total of 10 days for complicated urinary tract infection -Should be able to go back on Keflex at discharge and complete course HORTENCIA on CKD stage IIIb secondary to dehydration -No recent chemistry panels in our system however previously has baseline serum creatinine was between 1.4 and 1.6 -Serum creatinine on admission was 2.95 -Creatinine is now down to 1.98 -Continue LR at 125 cc/h -Continue to hold lisinopril Poor p.o. intake -Patient without significant appetite -Improving Leukocytosis -Resolved Debility/generalized weakness -Likely related to decreased p.o. intake/dehydration/UTI/possible C. difficile -PT/OT following -Better today -Anticipate any therapy needs at discharge -Case management follow-up Factor V Leiden deficiency with history of PE -Patient is chronically anticoagulated with Xarelto -With renal dysfunction we will hold Xarelto and placed on Eliquis 2.5 mg twice daily -Transition back to Xarelto once serum creatinine normalizes Irritable bowel syndrome -Hold home eluxadoline -Patient just had colonoscopy with no significant findings per his report by Dr. Licona -We will refer to Dr. Marie at discharge with lactoferrin positivity and c hronic diarrhea issues Hypertension -Continue isosorbide mononitrate -Continue to hold lisinopril with renal dysfunction -As needed hydralazine for systolic blood pressure greater 160 DM-2 -Hold home oral agents -Sliding scale 3 times daily -Accu-Cheks as ordered Hyperlipidemia -Continue rosuvastatin DVT prophylaxis -Heparin 3 times daily CODE STATUS -Full code as per discussion prior to admission Charges/Coding Visit Charges Inpatient E&M: 46239 Subs Hosp L2
[2022-12-12 14:19] VITALS: BP 102/48; PULSE 95; RESP 20; TEMP 36.6; O2SAT 95
--- NOTE | 2022-12-12 16:06 | CHAPLAIN ---
Type of Pastoral Visit _x__ Initial Visit ___ Follow-up Visit ___ On-call Visit ___ General Patient Visit ___ Spiritual Assessment ___ Family Conference ___ Bereavement ___ Rapid Response ___ Code Blue ___ Other (describe below) Pastoral Care Referral From _x__ Patient ___ Family ___ Nurse ___ Physician ___ Home Health Billing Specialist ___ Social Media Marketer ___ Other (describe below) Sacrament/Intervention _x__ Active listening ___ Anointing ___ Scientologist ___ Bereavement ___ Communion _x__ Dana exploration ___ ___ Life review _x__ Prayer ___ Reconciliation ___ Sacrament of Sick _x__ Supportive presence ___ Wedding ___ Other (describe below) Pastoral Comments patient was welcoming, talkative, and had many thoughts to share in particular to dana and his catholic; pt desires to stay in hospital until he knows he is better; pt welcomes prayer
[2022-12-12] MEDS: Loperamide 2 MG Capsule PO (16:13)
[2022-12-12 16:25] LABS: Bedside Glucose 125 mg/dL (74-106)
[2022-12-12 16:28] VITALS: BP 111/52; PULSE 77; RESP 18; TEMP 36.5; O2SAT 97
[2022-12-12 21:57] VITALS: BP 109/46; PULSE 65; RESP 18; TEMP 36.6; O2SAT 97
[2022-12-12 22:41] LABS: Bedside Glucose 120 mg/dL (74-106)
[2022-12-13 02:05] VITALS: BP 108/55; PULSE 63; RESP 18; TEMP 36.5; O2SAT 94
[2022-12-13] MEDS: Lactated Ringers 1,000 ML 125 ML IV (02:13)
[2022-12-13 06:51] LABS: Bedside Glucose 116 mg/dL (74-106)
[2022-12-13 07:13] LABS: Anion Gap 6 (5-15); BUN 44 mg/dL (7-18); BUN/Creat Ratio 24.9 RATIO (10-20); Calcium,Total 8.7 mg/dL (8.5-10.1); Chloride 108 mmol/L (98-107); Creatinine, Serum 1.77 mg/dL (0.70-1.30); EST Glomerular Filtration Rate 39 mL/min (>60); Est Glom Filt Rate - Afr Amer 48 mL/min (>60); Estimated Creatinine Clearance 31.13 ml/min; Glucose 113 mg/dL (74-106); Potassium 3.9 mmol/L (3.5-5.1); Sodium Level 139 mmol/L (136-145)
[2022-12-13 08:00] VITALS: BP 99/40; PULSE 57; RESP 18; TEMP 36.6; O2SAT 94
[2022-12-13] MEDS: Ceftriaxone 1 GM/50 ML BAG IV (10:01)
[2022-12-13] MEDS: DULoxetine Hcl 60 MG Capsule PO (10:02)
[2022-12-13] MEDS: Isosorbide Mononitrate 30 MG Tablet PO (10:02)
[2022-12-13] MEDS: APIXABAN 2.5 MG TABLET (WCH) PO (10:02)
[2022-12-13 11:10] LABS: Bedside Glucose 107 mg/dL (74-106)
--- NOTE | 2022-12-13 13:36 | PCM.DC.SUM ---
Providers Date of Admission: 12/11/22 Date of Discharge: 12/13/22 Primary Care Physician: Dr. Dane Cobb MD Reason For Visit: DEHYDRATION Diagnosis Discharge Diagnosis (1) Acute diarrhea: Status: Acute Code(s): R19.7 - Diarrhea, unspecified (2) Acute dehydration: Status: Acute Code(s): E86.0 - Dehydration (3) HORTENCIA (acute kidney injury): Status: Acute Code(s): N17.9 - Acute kidney failure, unspecified (4) Urinary tract infection: Status: Acute Code(s): N39.0 - Urinary tract infection, site not specified (5) Current use of intermediate frame tender anticoagulation: Status: Acute Code(s): Z79.01 - long term care pharmacist (current) use of anticoagulants (6) Leukocytosis: Status: Acute Code(s): D72.829 - Elevated white blood cell count, unspecified (7) Generalized weakness: Status: Acute Code(s): R53.1 - Weakness (8) Debility: Status: Acute Code(s): R53.81 - Other malaise Plan Acute on chronic diarrhea -Patient states he has IBS and has chronic diarrhea however since starting the antibiotic his diarrhea has got profoundly worse -Was having 7-8 watery profuse bowel movements daily -Diarrhea has significantly improved -Enteric panel and C. difficile are negative -Start as needed Imodium -CT of the abdomen pelvis shows no significant abnormalities in the colon E. coli complicated UTI -Sensitive to Keflex therefore he has had a couple days of treatment -We will continue antibiotics but utilize IV with ceftriaxone 1 g daily for the next 7 days to complete a total of 10 days for complicated urinary tract infection -Should be able to go back on Keflex at discharge and complete course HORTENCIA on CKD stage IIIb secondary to dehydration -No recent chemistry panels in our system however previously has baseline serum creatinine was between 1.4 and 1.6 -Serum creatinine on admission was 2.95 -Creatinine is now down to 1.98 -Continue LR at 125 cc/h -Continue to hold lisinopril Poor p.o. intake -Patient without significant appetite -Improving Leukocytosis -Resolved Debility/generalized weakness -Likely related to decreased p.o. intake/dehydration/UTI/possible C. difficile -PT/OT following -Better today -Anticipate any therapy needs at discharge -Case management follow-up Factor V Leiden deficiency with history of PE -Patient is chronically anticoagulated with Xarelto -With renal dysfunction we will hold Xarelto and placed on Eliquis 2.5 mg twice daily -Transition back to Xarelto once serum creatinine normalizes Irritable bowel syndrome -Hold home eluxadoline -Patient just had colonoscopy with no significant findings per his report by Dr. Licona -We will refer to Dr. Marie at discharge with lactoferrin positivity and chronic diarrhea issues Hypertension -Continue isosorbide mononitrate -Continue to hold lisinopril with renal dysfunction -As needed hydralazine for systolic blood pressure greater 160 DM-2 -Hold home oral agents -Sliding scale 3 times daily -Accu-Cheks as ordered Hyperlipidemia -Continue rosuvastatin DVT prophylaxis -Heparin 3 times daily CODE STATUS -Full code as per discussion prior to admission Medications at Discharge Home Medications duloxetine 60 mg capsule,delayed release 60 mg PO DAILY depression 01/21/16 lisinopril 10 mg tablet 10 mg PO DAILY blood pressure 01/21/16 cephalexin 500 mg capsule 500 mg PO TID antibiotic 12/11/22 clopidogrel 75 mg tablet 75 mg PO DAILY blood thinner 12/11/22 eluxadoline 100 mg tablet (Viberzi) 200 mg PO DAILY stomach 12/11/22 isosorbide mononitrate 30 mg tablet,extended release 24 hr 30 mg PO DAILY heart 12/11/22 loperamide 2 mg capsule 2 mg PO Q6H PRN Diarrhea 12/11/22 omega-3 fatty acids 1,000 mg capsule 1,000 mg PO DAILY supplement 12/11/22 rivaroxaban 15 mg tablet (Xarelto) 15 mg PO BIDCM blood thinner 12/11/22 rosuvastatin 5 mg tablet 5 mg PO DAILY CHOLESTEROL 12/11/22 saxagliptin 2.5 mg tablet 2.5 mg PO DAILY blood sugars 12/11/22 Hospital Course Procedures - (CT abdomen and pelvis) Summary of Care Provided Minutes Spent on Discharge: 38 Hospital Course: Mr. Ritchie is an 82-year-old white male who presented to the emergency department at [facility] on 12/11/2022 complaining of generalized weakness. The patient came to emergency department on 12/08/2021 complaining of urinary frequency and dysuria. At that time he was diagnosed with a urinary tract infection based off his UA and a culture was sent. He was sent home with Keflex at that time. His urine culture has since grown out pansensitive E. coli, however the patient had developed generalized weakness with severe diarrhea since that initial presentation. He indicated that he has pretty significant diarrhea at baseline related to irritable bowel syndrome but his diarrhea had significantly worsened since he started taking antibiotics. He reported that he was having 7-8 nonbloody watery bowel movements a day. He indicated his oral intake had been poor and stated he was just not hungry. He reported he had not had much to drink or eat since Sunday because he had not felt like doing either. He denied any changes in his urine output. He reported some intermittent abdominal cramping and indicated he felt weak all over. He denies any fever or chills, tingling, numbness or focal deficits. He also complained of bilateral lower extremity aching. Vital signs on presentation show a temperature of 97.8, heart rate 98, blood pressure 113/58, respiratory rate 16 and oxygen saturations are 99% room air.? CBC shows a leukocytosis with a left shift.? Chemistry panel shows a markedly elevated BUN and creatinine from baseline at 62 and 2.95 (baseline appears to be 1.4-1.6 however we have no recent lab).? He has mild hyperglycemia with a sugar of 115 and his AST is mildly elevated 45.? His UA shows an elevated specific gravity at 1.02 and shows proteinuria and ketones at 5. Given his diarrhea and abdominal cramping we got a CTA of his abdomen and pelvis with oral contrast that showed a mild degree of increased linear markings at the left lung base suggestive of scarring, questionable gynecomastia over the right breast, hepatomegaly with diffuse fatty infiltration of the liver, resection of left adrenal gland, sigmoid diverticulosis, and a diffuse bladder wall thickening with prostatic enlargement. He was admitted to the medical floor and treated with aggressive IV hydration, antiemetics as needed and placed on a clear liquid diet that was advanced as tolerated. We continued antibiotics with ceftriaxone for his urinary tract infection and he will complete his oral antibiotics at discharge to complete treatment for complicated E. coli UTI. We sent off a lactoferrin which was positive. C. difficile and enteric panels were negative. His blood pressure medication was held as his blood pressure was on the low side during his hospital course. He is on isosorbide and lisinopril at baseline. His leukocytosis resolved with hydration and ongoing treatment for his UTI. His serum creatinine dramatically improved with IV fluids and holding his lisinopril. As noted above his serum creatinine at admission was 2.95 on the day of discharge it had improved to 1.77 which is close to his baseline of 1.4-1.6. He was seen by therapy and deemed inappropriate for ongoing therapy services as he was doing quite well. During his hospitalization with his worsening creatinine his Xarelto was held and he was placed on renally Eliquis 2.5 mg twice daily, however with the improvement his renal function his Xarelto was restarted at discharge at his baseline dose. We did have him hold his blood pressure medications at discharge as he was not markedly hypotensive while not getting them. He is to recheck his blood pressure on Sunday and restart his blood pressure medications when his blood pressure starts to creep above 130/80. At the time of discharge his diarrhea was resolved. He is to hold them until this occurs. I have also asked him to follow-up with his primary care physician within the next 2 weeks and to call make an appointment. I have also encouraged him to follow-up with GI for further investigation of his chronic diarrhea. He states he had a recent colonoscopy and no findings that were abnormal were obtained at that time. Referral was given at discharge. He was discharged home in stable condition on 12/11/2021. Discharge diagnoses: Acute on chronic diarrhea-resolved Complicated E. coli UTI-ongoing antibiotics HORTENCIA on CKD stage IIIb-resolved Acute dehydration-resolved Poor p.o. intake-resolved Debility/generalized weakness-resolved History of PE Factor V Leiden deficiency IBS Hypertension DM-2 Hyperlipidemia Physical Exam Narrative Patient states he has been eating without a problem. Getting up without any issues to the bathroom. Was seen by therapy yesterday and deemed okay for no ongoing therapy services. No further diarrhea. Const alert, oriented x3, no apparent distress, healthy appearing and well nourished Constitutional Narrative: Obese, older, white male, sitting up in a chair at the bedside, looking well,, appears comfortable, nontoxic General Appearance: cooperative, comfortable, well kempt and well developed Orientation / Consciousness: awake, oriented to person, oriented to place and oriented to time Exam Limitations: no limitations Nutritional Appearance: obese HEENT normocephalic, head/scalp atraumatic and moist oral mucous membranes HEENT Narrative: Mild to moderate hearing loss, Mallampati 2-3, no thrush Eyes PERRL, EOMs intact bilaterally and conjunctivae normal Eyes Narrative: No scleral icterus Neck no lymphadenopathy, supple and no carotid bruits Neck Narrative: Trachea midline, no thyroid enlargement or nodules noted Resp normal respiratory effort, no retractions, no use of accessory muscles and clear to auscultation bilaterally Resp Narrative: Mildly diminished diffusely but no adventitious sounds noted Auscultation: Negative for rales, rhonchi or wheezes Cardio regular rate, regular rhythm, S1 normal heart sound, S2 normal heart sound, no murmurs, no rub, no gallops and no clicks GI normal to inspection, nondistended, normoactive bowel sounds, soft to palpation and non-tender Extremity no clubbing, cyanosis or edema Extremity Narrative: 2+ pedal pulses Skin no rashes or lesions noted, no wounds, skin turgor normal, no jaundice, no petechiae and no mottling Neuro oriented x3, CN's II-XII intact bilaterally, moves all extremities, no focal motor deficits and no sensory deficits noted Neuro Narrative: Marked improvement in strength since admission, ambulating independently and stable Speech: speech normal Psych affect normal Psych Narrative: Very pleasant, appropriately interactive, appears as if he is feeling much better overall Weight / BMI Weight Weight: 104.326 kg Body Mass Index (BMI) 34.9 ABG / Lab / Microbiology Data Result Diagrams: 12/12/22 06:20 12/13/22 05:53 Laboratory: Laboratory Results - last 24 hr 12/12/22 16:03: POC Glucose 125 H 12/12/22 21:53: POC Glucose 120 H 12/13/22 05:53: Sodium 139, Potassium 3.9, Chloride 108 H, Carbon Dioxide 25.0, Anion Gap 6, BUN 44 H, Creatinine 1.77 H, Estim Creat Clear Calc 31.13, Est GFR (MDRD) Af Amer 48 L, Est GFR (MDRD) Non-Af 39 L, BUN/Creatinine Ratio 24.9 H, Glucose 113 H, Calcium 8.7 12/13/22 06:32: POC Glucose 116 H 12/13/22 10:40: POC Glucose 107 H Microbiology: Microbiology 12/11/22 16:45 Stool Enteric Bacteriology - Final 12/11/22 16:45 Stool C. difficile DNA Amplification - Final 12/11/22 16:45 Stool Stool Lactoferrin - Final D/C Instructions Discharge Diet: Low fat / Low cholesterol and 1800 Calorie Control Diet Discharge Activity: Return to Normal Activity Meaningful Use Info Meaningful Use Diagnoses (Choose all that apply): None applicable Discharge Plan Admission Admit Date/Time: 12/11/22 12:56 Primary Reason for Your Visit: generalized weakness Attending Provider: Neena Fritz Primary Care Provider: Dane Cobb Instructions Additional Instructions / Restrictions: 1. Hold blood pressure medication of lisinopril and isosorbide mononitrate 2. On 12/15/2022 please have your blood pressure checked and restart blood pressure medication if your blood pressure is greater then 130/80, if not higher than this hold your blood pressure medication until your pressure is higher than this Discharge Orders/Prescriptions Prescriptions: Continued duloxetine 60 MG capsule 60 mg PO DAILY saxagliptin 2.5 mg Tablet 2.5 mg PO DAILY Viberzi 100 mg Tablet 200 mg PO DAILY omega-3 fatty acids 1,000 mg Capsule 1,000 mg PO DAILY loperamide 2 mg Capsule 2 mg PO Q6H PRN (Reason: Diarrhea) clopidogrel 75 mg tablet 75 mg PO DAILY Label Comments: TAKE 8 TABLETS BY MOUTH ONCE ON DAY 1 FOR FIRST DOSE (LOADING DOSE), THEN 1 TABLET DAILY THEREAFTER cephalexin 500 mg Capsule 500 mg PO TID Xarelto 15 MG tablet 15 mg PO BIDCM rosuvastatin 5 mg tablet 5 mg PO DAILY Held lisinopril 10 MG tablet 10 mg PO DAILY Hold Instructions: Until blood pressure is 130/80 or higher isosorbide mononitrate 30 mg Tablet Extended Release 24 Hr 30 mg PO DAILY Hold Instructions: Until blood pressure is 130/80 or higher Referrals / Follow Up: Dane Cobb MD [Primary Care Provider] - Within 2 Weeks (Call office to make a hospital follow-up appointment to be seen within the next 2 weeks if possible) Jr Marie DO [Med Staff - Active Staff] - Within 3 Months (chronic diarrhea-Please call as soon as possible for to make appt) Disposition Disposition (needs filled in before D/C Order can be placed): Home, Self Care Charges/Coding Visit Charges Inpatient E&M: 34757 Disch Hosp >30min
[2022-12-13 13:47] VITALS: BP 114/64; PULSE 73; RESP 18; TEMP 36.5; O2SAT 95
--- NOTE | 2022-12-13 14:43 | PHA.DC.MR ---
Pharmacy Service has performed discharge medication reconciliation for this patient. The patient's discharge medication list was reviewed for discrepancies and discrepancies were resolved. Home Medications duloxetine 60 mg capsule,delayed release 60 mg PO DAILY depression 01/21/16 lisinopril 10 mg tablet 10 mg PO DAILY blood pressure 01/21/16 cephalexin 500 mg capsule 500 mg PO TID antibiotic 12/11/22 clopidogrel 75 mg tablet 75 mg PO DAILY blood thinner 12/11/22 eluxadoline 100 mg tablet (Viberzi) 200 mg PO DAILY stomach 12/11/22 isosorbide mononitrate 30 mg tablet,extended release 24 hr 30 mg PO DAILY heart 12/11/22 loperamide 2 mg capsule 2 mg PO Q6H PRN Diarrhea 12/11/22 omega-3 fatty acids 1,000 mg capsule 1,000 mg PO DAILY supplement 12/11/22 rivaroxaban 15 mg tablet (Xarelto) 15 mg PO BIDCM blood thinner 12/11/22 rosuvastatin 5 mg tablet 5 mg PO DAILY CHOLESTEROL 12/11/22 saxagliptin 2.5 mg tablet 2.5 mg PO DAILY blood sugars 12/11/22
== END 2022-12-13 14:55 | disposition home or self-care (01) | DRG 392 ==
LOC: ED 13:15 → MS3 13:59
PROVIDERS: Admitting Provider Internal Medicine; Emergency Provider Emergency Medicine; PCP Family Medicine; Visit Provider Internal Medicine
DX: K58.0 Irritable bowel syndrome with diarrhea (principal); N17.9 Acute kidney failure, unspecified; E11.22 Type 2 diabetes mellitus with diabetic chronic kidney disease; E11.65 Type 2 diabetes mellitus with hyperglycemia; D68.2 Hereditary deficiency of other clotting factors; N18.32 Chronic kidney disease, stage 3b; N39.0 Urinary tract infection, site not specified; B96.20 Unspecified Escherichia coli [E. coli] as the cause of diseases classified elsewhere; E78.5 Hyperlipidemia, unspecified; I12.9 Hypertensive chronic kidney disease with stage 1 through stage 4 chronic kidney disease, or unspecified chronic kidney disease; E86.0 Dehydration; K57.30 Diverticulosis of large intestine without perforation or abscess without bleeding; Z79.01 Long term (current) use of anticoagulants; Z79.84 Long term (current) use of oral hypoglycemic drugs; Z87.891 Personal history of nicotine dependence; Z79.899 Other long term (current) drug therapy; Z79.02 Long term (current) use of antithrombotics/antiplatelets; Z86.711 Personal history of pulmonary embolism
CPT/HCPCS: 36415; 74176; 80048; 80053; 81001; 82550; 82962; 83630; 83735; 84100; 85025; 87077; 87086; 87088; 87186; 87493; 87506; 94668; 96360; 96361; 96365; 96366; 97161; 97166; 99221; 99252; 99283; 99284; J7030; J7120; A4216; G0378; G0463

== ENCOUNTER 2023-01-05 11:40 | Emergency (ER) | payer MEDICARE, SELFPAY ==
[2023-01-05 11:41] VITALS: BP 125/81; PULSE 90; RESP 16; TEMP 36.6; O2SAT 96; BMI 32.3
--- NOTE | 2023-01-05 12:18 | EX.ED.DYSGE1 ---
HPI <KAROLINE Bedolla - Last Filed: 01/05/23 16:56> History of Present Illness Chief Complaint: Abn Labs Narrative Narrative: Patient presenting today due to abnormal labs that were obtained on Sunday. He states that his PCP called him today and told him to come to the emergency department for observation. He is not entirely sure what was abnormal but thinks it has to do with his kidney function. He denies a history of CKD but was recently hospitalized on 12/11/2022 for an HORTENCIA due to dehydration from a GI illness. Patient states that he is currently on an antibiotic for balanitis. Patient states that he is feeling completely normal at this time and denies any fever, chills, abdominal pain, chest pain, shortness of breath, nausea, vomiting, diarrhea, and urinary symptoms. PMH includes diabetes mellitus, hypertension, hyperlipidemia, hx of pulmonary embolism and factor V Leiden currently on Xarelto. PFSH <KAROLINE Bedolla - Last Filed: 01/05/23 16:56> [facility] Medical History (Updated 01/05/23 @ 15:45 by KAROLINE Bedolla) Anticoagulated CAD (coronary artery disease) Current use of care home anticoagulation Depression Diabetes Factor V deficiency HTN (hypertension) Hx pulmonary embolism Hyperlipidemia IBS (irritable bowel syndrome) Stage 3b chronic kidney disease (CKD) Home Medications duloxetine 60 mg capsule,delayed release 60 mg PO DAILY depression 01/21/16 [History Last Taken 12/10/22] lisinopril 10 mg tablet 10 mg PO DAILY blood pressure 01/21/16 [History Last Taken 12/10/22] cephalexin 500 mg capsule 500 mg PO TID antibiotic 12/11/22 [History Last Taken 12/10/22] clopidogrel 75 mg tablet 75 mg PO DAILY blood thinner 12/11/22 [History Last Taken 12/10/22] eluxadoline 100 mg tablet (Viberzi) 200 mg PO DAILY stomach 12/11/22 [History Last Taken 12/10/22] isosorbide mononitrate 30 mg tablet,extended release 24 hr 30 mg PO DAILY heart 12/11/22 [History Last Taken 12/10/22] loperamide 2 mg capsule 2 mg PO Q6H PRN Diarrhea 12/11/22 [History Last Taken Unknown] omega-3 fatty acids 1,000 mg capsule 1,000 mg PO DAILY supplement 12/11/22 [History Last Taken 12/10/22] rivaroxaban 15 mg tablet (Xarelto) 15 mg PO BIDCM blood thinner 12/11/22 [History Last Taken 12/10/22] rosuvastatin 5 mg tablet 5 mg PO DAILY CHOLESTEROL 12/11/22 [History Last Taken 12/10/22] saxagliptin 2.5 mg tablet 2.5 mg PO DAILY blood sugars 12/11/22 [History Last Taken 12/10/22] Allergy/AdvReac Type Severity Reaction Status Date / Time simvastatin AdvReac Other Verified 01/05/23 11:43 Surgical History (Updated 01/05/23 @ 13:08 by Jael Hamilton) Stented coronary artery Social History Smoking Status: Former smoker alcohol intake: never substance use type: does not use ROS <KAROLINE Bedolla - Last Filed: 01/05/23 16:56> ROS ED Constitutional Constitutional ED: Denies chills, fever(s) or sweats Eyes Eyes: Denies blurry vision or diplopia Cardiovascular Cardiovascular: Denies chest pain or palpitations Respiratory/Chest Respiratory/Chest: Denies cough or dyspnea Gastrointestinal Gastrointestinal: Denies abdominal pain, constipation, diarrhea, nausea or vomiting Genitourinary Genitourinary ED: Denies dysuria, hematuria or urinary urgency Musculoskeletal Musculoskeletal: Denies arthralgias, back pain, myalgias or neck pain Integumentary Denies abscess, Abrasions or rash Neurologic Neurologic: Denies confusion, dizziness or paresthesias Psychiatric Psychiatric: Denies anxiety, depression, suicidal ideation or suicidal thoughts EXAM <KAROLINE Bedolla - Last Filed: 01/05/23 16:56> Physical Exam Const Vital Signs: 01/05/23 11:41 01/05/23 13:12 01/05/23 15:59 Temperature 98 F Temperature Source Temporal Pulse Rate 90 84 Respiratory Rate 16 16 Respiratory Effort Normal Respiratory Pattern Normal Blood Pressure 125/81 H 106/52 L Blood Pressure Mean 95 Pulse Ox 96 98 Oxygen Delivery Method Room Air Positive well nourished, well developed and no apparent distress General Appearance ED: well developed HEENT Reports normocephalic and head/scalp atraumatic Mouth ED: Yes moist mucous membranes normal Eyes PERRL and EOMs intact bilaterally Neck full ROM and supple Chest Wall inspection of chest normal Resp normal respiratory effort and clear to auscultation bilaterally Cardio regular rate and regular rhythm GI soft to palpation, non-tender, non-distended and no masses Back/Spine normal ROM and normal to inspection Extremity normal to inspection and full ROM Neuro oriented x3, CN's II-XII intact bilaterally, moves all extremities, no focal motor deficits and no sensory deficits noted Sensorium / Orientation: awake and alert Psych mental status grossly normal and thought process normal Skin no rashes or lesions noted and no wounds <Dr. Neha Layne MD - Last Filed: 01/05/23 15:50> Physical Exam Const Vital Signs: 01/05/23 11:41 01/05/23 13:12 01/05/23 15:59 Temperature 98 F Temperature Source Temporal Pulse Rate 90 84 Respiratory Rate 16 16 Respiratory Effort Normal Respiratory Pattern Normal Blood Pressure 125/81 H 106/52 L Blood Pressure Mean 95 Pulse Ox 96 98 Oxygen Delivery Method Room Air MDM <KAROLINE Bedolla - Last Filed: 01/05/23 16:56> [facility] Narrative Medical decision making narrative: Patient presenting today because his PCP told him that he had abnormal lab results that were drawn on Sunday. He is not really sure what was abnormal but thinks it has to do with his kidney function. He is well-appearing and in no acute distress. History of HORTENCIA 12/11/22 after he had several bouts of diarrhea that was ultimately attributed to his IBS and history of diarrhea being worsened by Keflex that he was placed on 12/08/22 for UTI. Hospitalist notes from 12/13/22 were reviewed and he was not found to have C. difficile and his enteric panel was negative. Labs obtained from PCP on 01/03/2023 showed a BUN of 45 and a creatinine of 2.24. Today, BUN 41 and creatinine 2.24. Patient states that he does not drink water regularly at all. He states he has not had water in several days and only drinks coffee. He has been given a liter of IV fluids as well as p.o. fluids. CBC unremarkable. Patient stated that when he urinates he only dribbles a small amount, postvoid residual was obtained by nurse and patient was found to have completely emptied his bladder. This does make sense though as patient is not drinking any fluids. I spoke to patient's PCP Dr. Cobb who states that as long as we hydrate patient he thinks that he can be discharged home and does not want us to do any additional testing. He recently put patient on Bactrim for balanitis and wants this to be discontinued as it is probably worsening his kidney function. Patient has been encouraged to drink plenty of fluids at home. He will be discharged home in stable condition and is to follow-up with his PCP. Patient is comfortable with plan. Lab Data Attestation: I reviewed the patient's lab results. Labs: Laboratory Results - last 24 hr 01/05/23 01/05/23 01/05/23 13:00 13:00 13:20 WBC 7.3 RBC 4.75 Hgb 14.3 Hct 45.0 MCV 94.7 H MCH 30.1 MCHC 31.8 L RDW Std Deviation 46.4 H RDW Coeff of Jarad 13.2 Plt Count 262 MPV 10.5 Immature Gran % (Auto) 0.700 Neut % (Auto) 54.9 Lymph % (Auto) 32.9 [place] % (Auto) 7.8 Eos % (Auto) 3.3 Baso % (Auto) 0.4 Absolute Neuts (auto) 4.0 Absolute Lymphs (auto) 2.39 Nucleated RBC % 0 Sodium 137 Potassium 5.1 Chloride 104 Carbon Dioxide 25.0 Anion Gap 8 BUN 41 H Creatinine 2.24 H Estim Creat Clear Calc 26.25 Est GFR (MDRD) Af Amer 36 L Est GFR (MDRD) Non-Af 30 L BUN/Creatinine Ratio 18.3 Glucose 137 H Calcium 9.1 Total Bilirubin 0.50 AST 17 ALT 23 Alkaline Phosphatase 89 Total Protein 7.1 Albumin 3.4 Globulin 3.7 Albumin/Globulin Ratio 0.9 Urine Color Yellow Urine Clarity Clear Urine pH 5.0 Ur Specific [place] 1.015 Urine Protein Negative Urine Glucose (UA) Normal Urine Ketones Negative Urine Occult Blood Negative Urine Nitrite Negative Urine Bilirubin Negative Urine Urobilinogen Normal Ur Leukocyte Esterase 100 H Urine RBC 0 SEEN Urine WBC 0-5 SEEN Ur Squamous Epith Cells 0 SEEN Urine Bacteria 0 SEEN Urine Mucus 0 SEEN <Dr. Neha Layne MD - Last Filed: 01/05/23 15:50> [facility] Lab Data Labs: Laboratory Results - last 24 hr 01/05/23 01/05/23 01/05/23 13:00 13:00 13:20 WBC 7.3 RBC 4.75 Hgb 14.3 Hct 45.0 MCV 94.7 H MCH 30.1 MCHC 31.8 L RDW Std Deviation 46.4 H RDW Coeff of Jarad 13.2 Plt Count 262 MPV 10.5 Immature Gran % (Auto) 0.700 Neut % (Auto) 54.9 Lymph % (Auto) 32.9 [place] % (Auto) 7.8 Eos % (Auto) 3.3 Baso % (Auto) 0.4 Absolute Neuts (auto) 4.0 Absolute Lymphs (auto) 2.39 Nucleated RBC % 0 Sodium 137 Potassium 5.1 Chloride 104 Carbon Dioxide 25.0 Anion Gap 8 BUN 41 H Creatinine 2.24 H Estim Creat Clear Calc 26.25 Est GFR (MDRD) Af Amer 36 L Est GFR (MDRD) Non-Af 30 L BUN/Creatinine Ratio 18.3 Glucose 137 H Calcium 9.1 Total Bilirubin 0.50 AST 17 ALT 23 Alkaline Phosphatase 89 Total Protein 7.1 Albumin 3.4 Globulin 3.7 Albumin/Globulin Ratio 0.9 Urine Color Yellow Urine Clarity Clear Urine pH 5.0 Ur Specific [place] 1.015 Urine Protein Negative Urine Glucose (UA) Normal Urine Ketones Negative Urine Occult Blood Negative Urine Nitrite Negative Urine Bilirubin Negative Urine Urobilinogen Normal Ur Leukocyte Esterase 100 H Urine RBC 0 SEEN Urine WBC 0-5 SEEN Ur Squamous Epith Cells 0 SEEN Urine Bacteria 0 SEEN Urine Mucus 0 SEEN Treatment and Re-Evaluation :: Patient seen and evaluated with MIL. I personally interviewed and examined the patient. I was involved in all aspects of patient's orders, interpretation of results, and treatment. Patient sent in secondary to worsening renal function. Patient was recently hospitalized with an HORTENCIA that seem to improve with IV fluids. Patient states he has seen nephrology in the past but does not follow with them regularly. He does report only a trickle stream when he urinates. He does not feel his if he has been urinating as much is normal. He denies pain. Patient sitting upright in bed no acute distress. Nontoxic-appearing. Head neck examination unremarkable. Heart is regular rate and rhythm. Lung sounds are clear. Abdomen is soft and nontender. BMP obtained. Creatinine is 2.24. This is slowly been trending up. Urinalysis is unremarkable and postvoid residual did not reveal any significant urinary retention. Patient was discussed with PCP. He will receive IV fluids here and be discharged with close follow-up. Discharge Plan Triage Chief Complaint: Abn Labs ED Midlevel Provider: Shazia Monsivais ED Provider: Neha Layne Dx/Rx/DC Orders Clinical Impression: Dehydration Instructions: ED Dehydration (Adult) Prescriptions: No Action lisinopril 10 MG tablet 10 mg PO DAILY Hold Instructions: Until blood pressure is 130/80 or higher duloxetine 60 MG capsule 60 mg PO DAILY isosorbide mononitrate 30 mg Tablet Extended Release 24 Hr 30 mg PO DAILY Hold Instructions: Until blood pressure is 130/80 or higher saxagliptin 2.5 mg Tablet 2.5 mg PO DAILY Viberzi 100 mg Tablet 200 mg PO DAILY omega-3 fatty acids 1,000 mg Capsule 1,000 mg PO DAILY loperamide 2 mg Capsule 2 mg PO Q6H PRN (Reason: Diarrhea) clopidogrel 75 mg tablet 75 mg PO DAILY Label Comments: TAKE 8 TABLETS BY MOUTH ONCE ON DAY 1 FOR FIRST DOSE (LOADING DOSE), THEN 1 TABLET DAILY THEREAFTER cephalexin 500 mg Capsule 500 mg PO TID Xarelto 15 MG tablet 15 mg PO BIDCM rosuvastatin 5 mg tablet 5 mg PO DAILY Primary Care Provider: Dane Cobb Referrals: Dane Cobb MD [Primary Care Provider] - 3-5 Days Activity Restrictions/Additional Instructions: Please drink more water. Follow-up with your PCP as needed. Discontinue the antibiotic you are on. Disposition Disposition: Home, Self Care Discharge Date/Time: 01/05/23 16:00
[2023-01-05 13:11] LABS: Absolute Lymphocyte Count 2.39 X10^3/uL (0.83-4.51); Basophil# 0.03 X10^3/uL; Basophil% 0.4 % (0-1); Eosinophil# 0.24 X10^3/uL; Eosinophils% 3.3 % (0-5); Hemoglobin 14.3 g/dL (13.0-16.5); Lymphocyte # 2.39 X10^3/ul (0.83-4.51); Lymphocyte % 32.9 % (19-41); Mean Corp Hgb Conc 31.8 g/dL (32-36); Mean Corpuscular Hgb 30.1 pg (27.0-32.0); Mean Corpuscular Volume 94.7 fL (80-94); Mean Platelet Vol. 10.5 fl (6.2-12.0); Monocyte# 0.57 X10^3/uL; Monocyte% 7.8 % (0-10); NRBC Flagged by Analyzer 0 % (0-5); Neutrophil # 3.99 X10^3/uL (2.7-7.7); Neutrophil % 54.9 % (47-70); Platelet Count 262 K/mm3 (150-450); RBC Distribution Width CV 13.2 % (11.6-14.6); RBC Distribution Width SD 46.4 fl (35.1-43.9); Red Blood Count 4.75 M/mm3 (4.6-6.2); White Blood Count 7.3 K/mm3 (4.4-11.0)
[2023-01-05 13:25] LABS: ALB/GLOB Ratio 0.9 RATIO (0.9-2.4); AST(SGOT) 17 U/L (15-37); Alanine Aminotransfer ALT/SGPT 23 U/L (16-61); Albumin, Serum 3.4 g/dL (3.2-5.0); Alkaline Phosphatase 89 U/L (45-117); Anion Gap 8 (5-15); BUN 41 mg/dL (7-18); BUN/Creat Ratio 18.3 RATIO (10-20); Calcium,Total 9.1 mg/dL (8.5-10.1); Chloride 104 mmol/L (98-107); Creatinine, Serum 2.24 mg/dL (0.70-1.30); EST Glomerular Filtration Rate 30 mL/min (>60); Est Glom Filt Rate - Afr Amer 36 mL/min (>60); Estimated Creatinine Clearance 26.25 ml/min; Globulin 3.7 g/dL (2.2-4.2); Glucose 137 mg/dL (74-106); Potassium 5.1 mmol/L (3.5-5.1); Protein, Total 7.1 g/dL (6.4-8.2); Sodium Level 137 mmol/L (136-145)
[2023-01-05 13:31] LABS: Bacteria 0 SEEN /hpf (None Seen); Mucous, Urine 0 SEEN /hpf (<or=2+); Red Blood Cells-Urine 0 SEEN /hpf (0-5); Squamous Epithelial Cells - UA 0 SEEN /hpf (0-5)
[2023-01-05 13:33] LABS: Color, Urine Yellow (Yellow); Glucose, Dipstick Normal (Normal); Ketone-Dipstick Negative (Negative); Leukocyte Esterase-Dipstick 100 /ul (Negative); Nitrite-Dipstick Negative (Negative); Occult Blood-Urine Negative /ul (Negative); Protein-Dipstick Negative (Negative); Specific Gravity, Urine 1.015 (1.002-1.030); Urine Bilirubin Dipstick Negative (Negative); Urine Clarity Clear (Clear); Urine Urobilinogen Normal (Normal)
[2023-01-05 13:40] LABS: White Blood Cells 0-5 SEEN /hpf (0-5)
[2023-01-05] MEDS: 0.9% Normal Saline 1,000 ML 999 ML IV (14:54)
[2023-01-05 15:59] VITALS: BP 106/52; PULSE 84; RESP 16; O2SAT 98
== END 2023-01-05 16:00 | disposition home or self-care (01) ==
PROVIDERS: Physician Assistant; Emergency Provider Emergency Medicine; PCP Family Medicine; Visit Provider Emergency Medicine
DX: E86.0 Dehydration (principal); E11.22 Type 2 diabetes mellitus with diabetic chronic kidney disease; N18.32 Chronic kidney disease, stage 3b; E78.5 Hyperlipidemia, unspecified; I25.10 Atherosclerotic heart disease of native coronary artery without angina pectoris; Z87.891 Personal history of nicotine dependence; I12.9 Hypertensive chronic kidney disease with stage 1 through stage 4 chronic kidney disease, or unspecified chronic kidney disease
CPT/HCPCS: 80053; 81001; 85025; 96360; 99283; J7030

== ENCOUNTER → 2023-02-12 | Outpatient (CLI) | payer MEDICARE, SELFPAY ==
[2023-02-12 16:18] LABS: Uric Acid 7.4 mg/dL (3.5-7.2)
== END | disposition home or self-care (01) ==
LOC: LABSPEC 15:46
PROVIDERS: PCP Family Medicine; Visit Provider Nurse Practitioner Acute Care
DX: R22.42 Localized swelling, mass and lump, left lower limb (principal)
CPT/HCPCS: 84550

== ENCOUNTER → 2023-04-02 | Outpatient (CLI) | payer MEDICARE, SELFPAY | END | disposition home or self-care (01) | LOC: LABSPEC 16:36 | PROVIDERS: PCP Family Medicine; Referring Provider Urology; Visit Provider Urology | DX: R31.29 Other microscopic hematuria (principal) | CPT/HCPCS: 87077; 87086; 87088; 87186 ==

== ENCOUNTER 2024-11-27 02:15 | Emergency (ER) | payer MEDICARE, SELFPAY ==
[2024-11-27 02:16] VITALS: BP 169/73; PULSE 69; RESP 18; TEMP 36.8; O2SAT 95; BMI 35.2
--- NOTE | 2024-11-27 02:31 | CT_ITS ---
PROCEDURE: CHEST WITHOUT CONTRAST REASON FOR EXAM: Left chest wall injury. Fall. Pain. TECHNIQUE: Chest CT without contrast. COMPARISON: None. FINDINGS: Cardiac size is within normal limits. Thoracic aorta demonstrates normal caliber with atherosclerotic calcifications. Multivessel coronary artery calcifications are identified. No lymphadenopathy is present. No pericardial or pleural effusion is identified. There is an acute nondisplaced fracture involving the posterior, medial aspect of the left 7th rib. There is an acute nondisplaced fracture involving the lateral aspect of the left 8th rib. There are adjacent atelectatic changes in the left lung. No pneumothorax is present. Additionally, there is a subtle lucency involving the lateral aspect of the left transverse process of T6. There is cortical irregularity involving the left transverse process of T7 likely related to an acute nondisplaced fracture. There is a lucency involving the lateral aspect of the left T8 transverse process related to an acute nondisplaced fracture. Evaluation of the lung parenchyma demonstrates mild biapical scarring. Emphysematous changes are identified. Bibasilar dependent atelectatic changes are present. Central airway is patent. The upper abdomen demonstrates no acute abnormality. CT/Chest without Contrast IMPRESSION: 1. Acute nondisplaced fracture involving the posterior, medial aspect of the l eft 7th rib and acute nondisplaced fracture involving the lateral aspect of the left 8th rib. No pneumothorax is present. There are adjacent atelectatic changes. 2. Acute nondisplaced fractures involving the left transverse processes of T6, T7, and T8. One or more dose reduction techniques were used (e.g., Automated exposure contr ol, adjustment of the mA and/or kV according to patient size, use of iterative reconstruction technique). Reading Location: [facility]
--- NOTE | 2024-11-27 02:31 | CT_ITS ---
PROCEDURE: BRAIN/HEAD WITHOUT CONTRAST REASON FOR EXAM: Head trauma. Pain. TECHNIQUE: Multiple, axial CT images of the brain are obtained without intravenous contrast. Coronal and sagittal 2D reformatted images were provided for better evaluation. COMPARISON: None. FINDINGS: There is prominence of the ventricles and sulci indicative of atrophy. Periventricular and deep white matter hypoattenuation likely relates to chronic small vessel ischemic disease. No midline shift, mass effect, or extra-axial fluid collections are identified. No acute intracranial hemorrhage, mass, or acute territorial infarction is present per CT criteria. Gao-white junction is preserved. Calvarium is intact. Visualized paranasal sinuses are clear. Nasal septum is deviated to the left. CT/Brain/Head without Contrast IMPRESSION: 1. No acute intracranial process. If clinical concern for acute ischemia, MRI i s a more sensitive exam. 2. Chronic small vessel ischemic disease. 3. Atrophy. One or more dose reduction techniques were used (e.g., Automated exposure contr ol, adjustment of the mA and/or kV according to patient size, use of iterative reconstruction technique). Reading Location: [facility]
--- NOTE | 2024-11-27 02:34 | ED.VIS.FALL ---
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 Also history of CAD, PEs, diabetes and chronic kidney disease. He was walking into a restaurant around 7 PM tonight. He did not have a railing. He lost his balance and fell going up 2 steps. He fell and hit his head on the wall going down and then injuring his left lateral rib cage and shoulder. Significant need to come in at that time. But he had more pain tonight so he decided to come in. Denies headache. Denies neck pain. Denies back pain. Prior similar symptoms: No Recent Illness/Hospitalization: No PFSH PFSH Medical History CAD (coronary artery disease) Depression IBS (irritable bowel syndrome) Stage 3b chronic kidney disease (CKD) Anticoagulated Diabetes Hx pulmonary embolism HTN (hypertension) Factor V deficiency Current use of termination clerk anticoagulation Hyperlipidemia Home Medications ?Medication ?Instructions ?Recorded ?Last Taken ?Type duloxetine 60 mg capsule,delayed 60 mg PO DAILY depression 01/21/16 12/10/22 History release lisinopril 10 mg tablet 10 mg PO DAILY blood pressure 01/21/16 12/10/22 History Held on 12/13/22. Instructions: Until blood pressure is 130/80 or higher cephalexin 500 mg capsule 500 mg PO TID antibiotic 12/11/22 12/10/22 History clopidogrel 75 mg tablet 75 mg PO DAILY blood thinner 12/11/22 12/10/22 History eluxadoline 100 mg tablet (Viberzi) 200 mg PO DAILY stomach 12/11/22 12/10/22 History isosorbide mononitrate 30 mg 30 mg PO DAILY heart 12/11/22 12/10/22 History tablet,extended release 24 hr Held on 12/13/22. Instructions: Until blood pressure is 130/80 or higher loperamide 2 mg capsule 2 mg PO Q6H PRN Diarrhea 12/11/22 Unknown History omega-3 fatty acids 1,000 mg 1,000 mg PO DAILY supplement 12/11/22 12/10/22 History capsule rivaroxaban 15 mg tablet (Xarelto) 15 mg PO BIDCM blood thinner 12/11/22 12/10/22 History rosuvastatin 5 mg tablet 5 mg PO DAILY CHOLESTEROL 12/11/22 12/10/22 History saxagliptin 2.5 mg tablet 2.5 mg PO DAILY blood sugars 12/11/22 12/10/22 History hydrocodone-acetaminophen 5-325mg 1 tab PO Q6H PRN pain 5 days #14 11/27/24 Unknown Rx 5mg-325mg tabs tamsulosin 0.4 mg capsule 0.4 mg PO DAILY 11/27/24 Unknown History Allergy/AdvReac Type Severity Reaction Status Date / Time simvastatin AdvReac Other Verified 11/27/24 02:16 Family History no significant family his Surgical History Stented coronary artery Social History Smoking Status: Former smoker alcohol intake: never substance use type: does not use ROS ROS ED ROS Narrative Denies recent illness. Constitutional Constitutional ED: Denies chills or fever(s) Eyes Eyes: Denies blurry vision ENT ENT ED: Denies ear pain Cardiovascular Cardiovascular: Reports other Details: Left lateral rib cage fall. ; Denies chest pain Respiratory/Chest Respiratory/Chest: Denies cough or dyspnea Gastrointestinal Gastrointestinal: Denies abdominal pain Genitourinary Genitourinary ED: Denies dysuria or hematuria Musculoskeletal Musculoskeletal: Denies arthralgias, back pain, myalgias or neck pain Integumentary Denies abscess Neurologic Neurologic: Denies headache(s) Psychiatric Psychiatric: Denies anxiety Endocrine Endocrinology: Denies polydipsia Hematologic/Lymphatic Hematologic/Lymphatic: Reports lymphadenopathy Allergic/Immunologic Allergic/Immunologic ED: Denies mouth swelling, tongue swelling or urticaria EXAM Physical Exam Narrative Exam Narrative: 84-year-old male sitting upright in bed. No acute distress. Brought in by squad. Vital signs are stable afebrile. Pulse ox 95% on room air no hypoxia. H EENT exam pupils round reactive light. Extra motions are intact. No facial trauma. He has an abrasion left anterior top of his scalp and also posterior scalp in the midline. No bleeding. No laceration needs repaired. No hematomas. No significant tenderness. No significant swelling. Neck and C-spine and trachea are all nontender. Normal range of motion. Back and spine nontender. No bruising. No signs of trauma. Lungs clear to auscultation bilaterally. Heart regular rhythm rate about 70 no murmur. Left lateral rib cage tenderness. No ecchymosis or bruising. No subcu air or crepitance. No bony deformity. Sternum and right chest wall nontender. No bruising. Abdomen soft nontender. No peritoneal signs. No bruising or signs of trauma. Absolutely no abdominal tenderness. Pelvic girdle intact. Moving all 4 extremities. Nontender no deformity. Except he has mild tenderness to the left shoulder. He has good range of motion. No deformity. Distal humerus, elbow, forearm and wrist and hand are nontender. Normal liquor clerk strength. Both lower extremities and hips are nontender. Right upper extremity nontender. Neurologically is awake and alert. Answer questions following commands. GCS of 15. Const Vital Signs: 11/27/24 02:16 11/27/24 02:16 Temperature 98.3 F Temperature Source Oral Pulse Rate 69 Respiratory Rate 18 Respiratory Effort Normal Respiratory Depth Normal Respiratory Pattern Normal Blood Pressure 169/73 H Blood Pressure Mean 105 Pulse Ox 95 95 Oxygen Delivery Method Room Air Room Air Positive well nourished and well developed; Negative for cachectic, contractures or unkempt General Appearance ED: well developed and NAD; Negative for unkempt, cachectic or contractures Nutritional Appearance: Negative for cachectic HEENT Reports normocephalic HEENT Narrative: 2 scalp contusions left anterior lateral and posterior. No active bleeding. No lacerations. No hematomas. trauma and contusion Eyes PERRL and EOMs intact bilaterally Neck full ROM, no lymphadenopathy and supple Neck Narrative: Nontender. General: Negative for tenderness Chest Wall inspection of chest normal; Negative for palpation of chest normal Chest Narrative: Left lateral rib cage tenderness. No crepitance. No subcu air. No bruising. No bony deformity. Resp no retractions and clear to auscultation bilaterally Cardio regular rate, regular rhythm, S1 normal heart sound, S2 normal heart sound and no murmurs GI non-tender, non-distended and no masses Palpation: soft; Negative for guarding or rebound tenderness present Back/Spine no CVA tenderness General Back: Negative for CVA tenderness Cervical Spine: Negative for cervical spine tenderness Lumbar Spine / Lower Back: Negative for lumbar spinal tenderness Extremity Extremity Narrative: Mild tenderness left shoulder. Normal range of motion. No deformity. No bruising. Neuro CN's II-XII intact bilaterally, moves all extremities and no focal motor deficits [place] Coma Scale: document GCS findings Spontaneous Obeys Commands Oriented 15 Sensorium / Orientation: alert, oriented to person, oriented to place and oriented to time; Negative for orientation impaired, confused, lethargic or stuporous Motor Exam: strength 5/5 throughout Psych mental status grossly normal and thought process normal Appearance: Negative for unkempt Mood & Affect: Negative for depressed, anxious or tearful Skin Skin Narrative: Left anterior lateral scalp and posterior scalp abrasions. General Skin Exam: Negative for other Lesions: no lesions Rashes: no rashes Trauma: abrasion MDM MDM MDM Narrative Medical decision making narrative: 84-year-old male on both Plavix and Xarelto fell going up 2 steps on the outside of a restaurant. Has a head injury, left rib cage and left shoulder injury. I am going to get a CT of his head and chest due to possible rib fractures and rule out intracranial injury. Currently is no signs of a significant head injury. He is awake and alert. He is acting appropriately. He does have significant risk so due to being on blood thinners. I do not think he needs any C-spine imaging he has no pain. I am also going to obtain an x-ray of his left shoulder. Patient be given oral pain meds. Repeat exam at 3:17 AM. Patient resting more comfortably. CAT scan of his brain shows no acute bleed. Left shoulder x-ray is unremarkable. Awaiting chest CT results. Exam at 3:30 AM I went over the CAT scan results with the patient. I do think he has a 7th and 8th rib fractures. He has absolutely no cervical, thoracic or lumbar tenderness. There is a probably old transverse process fractures. We discussed that. He was given a Deale. We will eventually get him up and walk him. He does not have any family but he does have friends to come pick him up in the morning. He will remain in the emergency department overnight. Patient ambulated well in the hallway without any assistance Radiography Diagnostic Testing: Clinical Impression(s) from Imaging Studies Brain CT 11/27/24 02:31 IMPRESSION: 1. No acute intracranial process. If clinical concern for acute ischemia, MRI is a more sensitive exam. 2. Chronic small vessel ischemic disease. 3. Atrophy. One or more dose reduction techniques were used (e.g., Automated exposure control, adjustment of the mA and/or kV according to patient size, use of iterative reconstruction technique). Reading Location: [facility] Chest CT 11/27/24 02:31 IMPRESSION: 1. Acute nondisplaced fracture involving the posterior, medial aspect of the left 7th rib and acute nondisplaced fracture involving the lateral aspect of the left 8th rib. No pneumothorax is present. There are adjacent atelectatic changes. 2. Acute nondisplaced fractures involving the left transverse processes of T6, T7, and T8. One or more dose reduction techniques were used (e.g., Automated exposure control, adjustment of the mA and/or kV according to patient size, use of iterative reconstruction technique). Reading Location: [facility] Shoulder X-Ray 11/27/24 03:00 IMPRESSION: 1. No acute osseous abnormality. 2. Degenerative changes of the acromioclavicular joint. Reading Location: [facility] Left shoulder x-ray, 4 views, interpreted by myself shows no acute fracture. No dislocation. Chronic arthritic changes. Discharge Plan Triage Chief Complaint: Fall ED Provider: Leon Gray Dx/Rx/DC Orders Clinical Impression: Fall, Left rib fracture, Closed head injury, Chronic anticoagulation Instructions: ED Rib Fracture, ED Head Injury (Adult) Prescriptions: New hydrocodone-acetaminophen 5-325 mg tablet 1 tab PO Q6H PRN (Reason: pain) 5 Days Qty: 14 0RF No Action lisinopril 10 MG tablet 10 mg PO DAILY duloxetine 60 MG capsule 60 mg PO DAILY isosorbide mononitrate 30 mg Tablet Extended Release 24 Hr 30 mg PO DAILY saxagliptin 2.5 mg Tablet 2.5 mg PO DAILY Viberzi 100 mg Tablet 200 mg PO DAILY omega-3 fatty acids 1,000 mg Capsule 1,000 mg PO DAILY loperamide 2 mg Capsule 2 mg PO Q6H PRN (Reason: Diarrhea) clopidogrel 75 mg tablet 75 mg PO DAILY Patient Comments: TAKE 8 TABLETS BY MOUTH ONCE ON DAY 1 FOR FIRST DOSE (LOADING DOSE), THEN 1 TABLET DAILY THEREAFTER cephalexin 500 mg Capsule 500 mg PO TID Xarelto 15 MG tablet 15 mg PO BIDCM rosuvastatin 5 mg tablet 5 mg PO DAILY tamsulosin 0.4 mg capsule 0.4 mg PO DAILY Primary Care Provider: Dane Cobb Referrals: Dane Cobb MD [Primary Care Provider] - As Needed Activity Restrictions/Additional Instructions: When you fell you broke 2 ribs on the left side #7 and 8. Ice to your rib cage. Hold a pillow against your ribs to support him as the best way to help rib cage pain. You may use plain Tylenol for pain or if you need stronger medication use the Deale which is the pain medication I wrote you for. Anytime you are using pain medication it can cause constipation or nausea. You may need a stool softener. Plenty of fruits, vegetables and fiber to help prevent constipation. Do not drive or drink alcohol after using the narcotic pain medication. Follow-up with your doctor as needed. You are on 2 blood thinners Plavix and Xarelto. Hold those today meaning , November 27. You can restart them normally on Sunday. And take them as your normally prescribed starting on Sunday. If you develop a severe headache or vomiting return. Print Language: Bangladeshi Disposition Disposition: Home, Self Care
--- NOTE | 2024-11-27 03:00 | RAD_ITS ---
PROCEDURE: SHOULDER MIN 2 VIEWS REASON FOR EXAM: Fall. Pain. TECHNIQUE: Four view(s) of the left shoulder were obtained. COMPARISON: None. FINDINGS: No acute fracture or dislocation is identified. Glenohumeral joint is intact. There are degenerative changes of the acromioclavicular joint. Visualized soft tissues are unremarkable. RAD/Shoulder min 2 Views IMPRESSION: 1. No acute osseous abnormality. 2. Degenerative changes of the acromioclavicular joint. Reading Location: [facility]
[2024-11-27] MEDS: HYDROcodone Bitartrate/Apap 5/325 Tablet PO ×2 (03:28→05:09)
[2024-11-27 03:51] VITALS: BP 165/84; PULSE 72; RESP 16; TEMP 36.8; O2SAT 94
[2024-11-27 03:53] VITALS: BP 165/84; PULSE 72; RESP 16; O2SAT 94
[2024-11-27 05:00] VITALS: BP 158/88; PULSE 68; RESP 16; O2SAT 96
[2024-11-27 06:52] VITALS: BP 127/56; PULSE 54; RESP 16; O2SAT 92
== END 2024-11-27 07:37 | disposition home or self-care (01) ==
PROVIDERS: Emergency Provider Emergency Medicine; PCP Family Medicine; Visit Provider Emergency Medicine
DX: S09.90XA Unspecified injury of head, initial encounter (principal); D68.2 Hereditary deficiency of other clotting factors; E11.22 Type 2 diabetes mellitus with diabetic chronic kidney disease; N18.32 Chronic kidney disease, stage 3b; E78.5 Hyperlipidemia, unspecified; I12.9 Hypertensive chronic kidney disease with stage 1 through stage 4 chronic kidney disease, or unspecified chronic kidney disease; M25.512 Pain in left shoulder; Z87.891 Personal history of nicotine dependence; I25.10 Atherosclerotic heart disease of native coronary artery without angina pectoris; Z79.01 Long term (current) use of anticoagulants; Z79.02 Long term (current) use of antithrombotics/antiplatelets; S00.03XA Contusion of scalp, initial encounter; S22.42XA Multiple fractures of ribs, left side, initial encounter for closed fracture; W10.9XXA Fall (on) (from) unspecified stairs and steps, initial encounter
CPT/HCPCS: 99284; 70450; 71250; 73030

== ENCOUNTER 2024-11-28 19:59 | Inpatient (IN) | payer MEDICARE, SELFPAY ==
[2024-11-28 20:00] VITALS: BP 176/80; PULSE 84; RESP 16; TEMP 36.6; O2SAT 96; BMI 34.9
--- NOTE | 2024-11-28 21:07 | ED.RN ---
Patient refusing IV anf xray at this time stating that he needs to prepare a stool sample to deliver to [facility] tomorrow. Patient refusing to ambulate. Patient argumentative and refusing to remove clothing to place gown on stating he cannot. When asked how patient has been performing ADLs and ambulating at home, patient states he has been performing tasks independntly.
--- NOTE | 2024-11-28 21:46 | RAD_ITS ---
PROCEDURE: CHEST PA AND LATERAL REASON FOR EXAM: Left rib pain. TECHNIQUE: Frontal and lateral views of the chest. COMPARISON: Yesterday's CT. FINDINGS: The heart size is normal. The mediastinal contour is unremarkable. Blunting of the left costophrenic angle which may represent a small left pleural effusion. Mild left basilar atelectasis. Left 7th and 8th rib fracture. Transverse process fractures are better visualized on the yesterday's CT. RAD/Chest PA and Lateral IMPRESSION: Left rib fractures. Blunting of the left costophrenic sulcus which may represent a small pleural ef fusion. Left basilar atelectasis. Reading Location: [id number]
[2024-11-28 22:00] VITALS: PULSE 74; RESP 17; O2SAT 94
[2024-11-28] MEDS: morphine 8 MG/ML Syringe 6 MG IV (22:03)
--- NOTE | 2024-11-28 22:04 | EX.ED.DYSGE1 ---
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 He was discharged home with Jackson. He states he said severe pain since and cannot take the pain anymore. He lives home alone. He states he is taking the Jackson but it is not providing any relief of his pain. He gets what he describes as spasms of pain made worse with movement or deep breathing. He denies any difficulty breathing or shortness of breath. No fevers or chills reported. CT result from 11/27/2024 of the chest shows acute nondisplaced fractures of the seventh and eighth ribs as well as nondisplaced fractures involving the left transverse process of T 6 7 and 8. [facility] Medical History (Updated 11/28/24 @ 22:[address] 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 Instructions: Until blood pressure is 130/80 or higher clopidogrel 75 mg tablet 75 mg PO DAILY blood thinner 12/11/22 12/10/22 History eluxadoline 100 mg tablet (Viberzi) 200 mg PO DAILY stomach 12/11/22 12/10/22 History isosorbide mononitrate 30 mg 30 mg PO DAILY heart 12/11/22 12/10/22 History tablet,extended release 24 hr Held on 12/13/22. Instructions: Until blood pressure is 130/80 or higher loperamide 2 mg capsule 2 mg PO Q6H PRN Diarrhea 12/11/22 Unknown History omega-3 fatty acids 1,000 mg 1,000 mg PO DAILY supplement 12/11/22 12/10/22 History capsule rivaroxaban 15 mg tablet (Xarelto) 15 mg PO BIDCM blood thinner 12/11/22 12/10/22 History rosuvastatin 5 mg tablet 5 mg PO DAILY CHOLESTEROL 12/11/22 12/10/22 History saxagliptin 2.5 mg tablet 2.5 mg PO DAILY blood sugars 12/11/22 12/10/22 History tamsulosin 0.4 mg capsule 0.4 mg PO DAILY 11/27/24 Unknown History ketoconazole 2 % topical cream applic topical 11/28/24 Unknown History linagliptin 5 mg tablet (Tradjenta) 5 mg PO DAILY 11/28/24 Unknown History Allergy/AdvReac Type Severity Reaction Status Date / Time simvastatin AdvReac Other Verified 11/28/24 20:03 Family History (Updated 11/28/24 @ 22:[address] Nanda Kaur MD) Mother Heart disease Hypertension Heart failure Father Heart disease Hypertension Family History no significant family his Surgical History (Updated 11/28/24 @ 22:[address] Nanda Kaur MD) Hx of abdominal surgery Status post cholecystectomy S/P nasal surgery Stented coronary artery Surgical History no surgical history Social History (Updated 11/28/24 @ 22:[address] Nanda Kaur MD) household members: none Smoking Status: Former smoker alcohol intake: never substance use type: does not use ROS ROS ED Constitutional Constitutional ED: Denies chills or fever(s) Cardiovascular Cardiovascular: Reports chest pain Respiratory/Chest Respiratory/Chest: Denies cough or dyspnea Gastrointestinal Gastrointestinal: Reports constipation; Denies abdominal pain, nausea or vomiting Musculoskeletal Musculoskeletal: Reports back pain Integumentary Denies rash Hematologic/Lymphatic Hematologic/Lymphatic: Reports easy bleeding, easy bruising and other Details: On Xarelto and Plavix EXAM Physical Exam Const Vital Signs: 11/28/24 20:00 11/28/24 20:07 11/28/24 22:00 Temperature 98 F Temperature Source Oral Pulse Rate 84 74 Respiratory Rate 16 17 Respiratory Effort Normal Blood Pressure 176/80 H Blood Pressure Mean 112 Pulse Ox 96 94 Oxygen Delivery Method Room Air Room Air 11/28/24 22:44 Temperature 98 F Temperature Source Pulse Rate 74 Respiratory Rate 17 Respiratory Effort Blood Pressure 176/80 H Blood Pressure Mean 112 Pulse Ox 94 Oxygen Delivery Method Positive well nourished and well developed General Appearance ED: well developed and NAD HEENT Reports moist mucous membranes Neck supple Chest Wall inspection of chest normal Chest Narrative: No chest wall crepitus however patient has significant pain with palpation of the left lateral and inferior chest wall. Does not allow for me to evaluate his back because of his pain and cannot sit up in bed. Resp normal respiratory effort and clear to auscultation bilaterally Cardio regular rate, regular rhythm and no murmurs GI normal to inspection, nondistended, normoactive bowel sounds and non-tender Extremity normal to inspection General Extremety ED: Negative for edema or tenderness General Extremity: Negative for edema Neuro oriented x3 Sensorium / Orientation: alert Motor Exam: Negative for general weakness Psych mental status grossly normal Skin no rashes or lesions noted and no wounds MDM MDM MDM Narrative Medical decision making narrative: Patient evaluated for continued pain of his chest on the left side. He had a mechanical fall couple days ago and subsequently was found to have 2 rib fractures as well as some transverse fracture as well as acute nondisplaced fractures of the left transverse process T6, T7 and T8. He has no acute falls or any acute symptoms presumptively as pain under control. He lives home alone. Differential includes tractable pain secondary to recent rib fractures, pneumothorax, developing pneumonia and debility. Patient given IV morphine for pain control with improvement. He is feeling much better. Is also given a Lidoderm patch. Patient is anticoagulated cannot take NSAIDs. Patient is have improvement of pain with morphine but states he does not feel comfortable going home especially as he lives home alone. Will discuss case with hospitalist for admission for further pain control and possible evaluation PT/OT. Will add on baseline labs. Radiography Diagnostic Testing: Clinical Impression(s) from Imaging Studies Chest X-Ray 11/28/24 21:46 IMPRESSION: Left rib fractures. Blunting of the left costophrenic sulcus which may represent a small pleural effusion. Left basilar atelectasis. Reading Location: [id number] Discharge Plan Triage Chief Complaint: Chest Other ED Provider: Mini Carrillo Dx/Rx/DC Orders Clinical Impression: Left rib fracture, Fall, Fracture of transverse process of thoracic vertebra Prescriptions: No Action lisinopril 10 MG tablet 10 mg PO DAILY duloxetine 60 MG capsule 60 mg PO DAILY isosorbide mononitrate 30 mg Tablet Extended Release 24 Hr 30 mg PO DAILY saxagliptin 2.5 mg Tablet 2.5 mg PO DAILY Viberzi 100 mg Tablet 200 mg PO DAILY omega-3 fatty acids 1,000 mg Capsule 1,000 mg PO DAILY loperamide 2 mg Capsule 2 mg PO Q6H PRN (Reason: Diarrhea) clopidogrel 75 mg tablet 75 mg PO DAILY Patient Comments: TAKE 8 TABLETS BY MOUTH ONCE ON DAY 1 FOR FIRST DOSE (LOADING DOSE), THEN 1 TABLET DAILY THEREAFTER Xarelto 15 MG tablet 15 mg PO BIDCM rosuvastatin 5 mg tablet 5 mg PO DAILY tamsulosin 0.4 mg capsule 0.4 mg PO DAILY ketoconazole 2 % cream topical Tradjenta 5 mg tablet 5 mg PO DAILY Primary Care Provider: Dane Cobb Referrals: Dane Cobb MD [Primary Care Provider] - Print Language: Vietnamese Disposition Disposition: Acute Care Hospital [facility]
[2024-11-28] MEDS: Lidocaine 5% Patch 1 PATCH TOPICAL (22:28)
--- NOTE | 2024-11-28 22:42 | HP.PCM.HOS_ITS ---
HPI - General General Date of Admission: 11/28/24 Date of Service: 11/28/24 Chief Complaint: Intractable pain s/p recent fall. HPI Narrative The patient is an 84-year-old male with past medical history of JORGE A noncompliant with PAP therapy, former tobacco use, CAD status post PCI, anxiety and depression, IBS, CKD stage III unclear subtype, history VTE with factor V deficiency (DVT, PE), hypertension, hyperlipidemia, diabetes mellitus type 2, recent ED evaluation 11/27/2024 with history of walking to a restaurant that evening approximately 7 PM with no railing unfortunately losing his balance and fell going up 2 steps hitting his head on the wall going down and also his left rib cage and shoulder not immediately seeking to be evaluated but given persistent increased pain prompted ED evaluation with workup at that time with CT brain with no acute intracranial findings, plain film of the left shoulder with no acute findings, CT of the chest with an acute nondisplaced fracture involving the posterior, medial aspect of the left seventh rib and acute nondisplaced fracture involving the lateral aspect of the left eighth rib with adjacent atelectatic changes, additionally acute nondisplaced fractures involving the left transverse processes of T6, 7 and 8 discharged home at that time on narcotic therapy per patient preference who now re-presents to the [facility] ED on 11/28/2024 with significant ongoing pain primarily with severe sharp sudden spasms along his ribs despite [place] with inability to appropriately maintain at home noting he lives alone with increased spasms of his muscles made worse with any deep inspiratory effort or movements but no recent fevers or chills or significant dyspnea but given difficulty caring for himself prompted eventual ED evaluation to be cautious. He notes when this occurs his pain is 10 out of 10 in severity. In the ED following morphine and lidocaine patch he notes his pain is improved to 2-3 out of 10 in severity. Workup in the ED included T98, heart rate 84, BP 176/80, respiratory rate 16, 96% on room air, pending CBC and CMP upon requested evaluation of patient. In the ED patient ministered morphine 6 mg IV x 1 as well as lidocaine topical patch x 1. [facility] Medical History Sleep apnea CAD (coronary artery disease) Depression IBS (irritable bowel syndrome) Stage 3b chronic kidney disease (CKD) Anticoagulated Diabetes Hx pulmonary embolism HTN (hypertension) Factor V deficiency Current use of snf anticoagulation Hyperlipidemia Medical History no medical history Home Medications ?Medication ?Instructions ?Recorded ?Last Taken ?Type duloxetine 60 mg capsule,delayed 60 mg PO DAILY depres juan antonio 01/21/16 12/10/22 History release lisinopril 10 mg tablet 10 mg PO DAILY blood pressur e 01/21/16 12/10/22 History Held on 12/13/22. Instructions: Until blood pressure is 130/80 or higher clopidogrel 75 mg tablet 75 mg PO DAILY blood thinner 12/11/22 12/10/22 History eluxadoline 100 mg tablet (Viberzi) [address] omach 12/11/22 12/10/22 History isosorbide mononitrate 30 mg 30 mg PO DAILY heart 11/2312/10/22 History tablet,extended release 24 hr Held on 12/13/22. Instructions: Until blood pressure is 130/80 or higher loperamide 2 mg capsule 2 mg PO Q6H PRN Diarrhea Unknown History omega-3 fatty acids 1,000 mg 1,000 mg PO DAILY supplem ent 12/11/22 12/10/22 History capsule rivaroxaban 15 mg tablet (Xarelto) 15 mg PO BIDCM bloo d thinner 12/11/22 12/10/22 History rosuvastatin 5 mg tablet 5 mg PO DAILY CHOLESTEROL 12/10/22 History saxagliptin 2.5 mg tablet 2.5 mg PO DAILY blood sugars 12/11/22 12/10/22 History tamsulosin 0.4 mg capsule 0.4 mg PO DAILY 11/27/24 Unk nown History ketoconazole 2 % topical cream applic topical 11/28/24 Unknown History linagliptin 5 mg tablet (Tradjenta) 5 mg PO DAILY 05/15 Unknown History Allergy/AdvReac Type Severity Reaction Status Date / Time simvastatin AdvReac Other Verified 11/28/24 20:03 Family History Mother Heart disease Hypertension Heart failure Father Heart disease Hypertension Family History no significant family his Surgical History Hx of abdominal surgery Status post cholecystectomy S/P nasal surgery Stented coronary artery Surgical History no surgical history Social History household members: none Smoking Status: Former smoker alcohol intake: never substance use type: does not use ROS ROS Narrative Admission Review of Systems: CONSTITUTIONAL: No weight loss, fever, chills, +weakness or fatigue. HEENT: Eyes: No visual loss, blurred vision, double vision or yellow sclerae. Ears, Nose, Throat: No hearing loss, sneezing, congestion, runny nose or sore throat. SKIN: No rash or itching, lesions, wounds. CARDIOVASCULAR: + Chest discomfort primarily with deep inspiration and with activity given recent rib fracture status post fall. No palpitations, edema, orthopnea, syncopal events. RESPIRATORY: + Difficulty with deep inspiratory effort. No shortness of breath, cough or sputum, wheezing, hemoptysis. GASTROINTESTINAL: No anorexia, nausea, vomiting or diarrhea, abdominal pain, melena, BRBPR. GENITOURINARY: No dysuria, frequency, urgency or retention. NEUROLOGICAL: No headache, dizziness, syncope, paralysis, ataxia, numbness or tingling in the extremities, focal weakness, change in bowel or bladder control, seizure. MUSCULOSKELETAL: + muscle, back pain, joint pain or stiffness. HEMATOLOGIC: No anemia. + Easy bleeding/bruising. LYMPHATICS: No enlarged nodes. No history of splenectomy. PSYCHIATRIC: + History of anxiety and depression. ENDOCRINOLOGIC: No reports of sweating, cold or heat intolerance. No polyuria or polydipsia. ALLERGIES: No history of asthma, hives, eczema or rhinitis. Vital Signs Vital Signs Vital Signs: 11/28/24 20:00 11/28/24 20:07 11/28/24 22:00 Temperature 98 F Temperature Source Oral Pulse Rate 84 74 Respiratory Rate 16 17 Respiratory Effort Normal Blood Pressure 176/80 H Blood Pressure Mean 112 Pulse Ox 96 94 Oxygen Delivery Method Room Air Room Air Weight Weight: 230 lb Body Mass Index (BMI) 34.9 Physical Exam Narrative Physical Examination: General: Awake, alert, oriented x 3 and cooperative, laying in ED bed, fatigued, initially notes he is comfortable however with movement in the bed he had onset of spasms and discomfort to the left lateral ribs with severe 10 out of 10 sharp pain however this was transient and improved over time. Skin: Normal color, normal turgor, no icterus, no cyanosis except very staged ecchymoses/abrasions especially with recent fall including to the lateral head. HEENT: Staged ecchymoses including the head evident status post recent fall/NC, EOMI, PERRLA, MMM, no carotid bruits or JVD noted. Lungs: Diminished, greater bases, poor effort as pain elicited with deep inspiratory attempts, no rales, ronchi or wheezing. Heart: Regular rate and rhythm; no gallop, rub audible. Abdomen: Soft, obese, NTTP, ND, normal BS, no appreciated HSM. Extremities: No cyanosis, clubbing, or edema. Neurological: Patient awake, alert, oriented as noted, cognitive function intact; pupils equally reactive to light and accommodation, cranial nerves grossly normal, moving all 4 extremities, no focal deficits, strength severely globally decreased. Psychiatric: Affect appears flat, fatigued, intermittently uncomfortable during evaluation, no acute evidence of depressive or anxiety feelings but does have underlying history. Results Lab / Micro Data 11/28/24 22:34 11/28/24 22:34 Imaging Radiology Impression Chest X-Ray 11/28/24 21:46 IMPRESSION: Left rib fractures. Blunting of the left costophrenic sulcus which may represent a small pleural effusion. Left basilar atelectasis. Reading Location: [id number] Assessment & Plan Assessment/Plan (1) Intractable pain: PLAN: Plan The patient is an 84-year-old male with past medical history of JORGE A noncompliant with PAP therapy, former tobacco use, CAD status post PCI, anxiety and depression, IBS, CKD stage III unclear subtype, history VTE with factor V deficiency (DVT, PE), hypertension, hyperlipidemia, diabetes mellitus type 2, recent ED evaluation 11/27/2024 with history of walking to a restaurant that evening approximately 7 PM with no railing unfortunately losing his balance and fell going up 2 steps hitting his head on the wall going down and also his left rib cage and shoulder not immediately seeking to be evaluated but given persistent increased pain prompted ED evaluation with workup at that time with CT brain with no acute intracranial findings, plain film of the left shoulder with no acute findings, CT of the chest with an acute nondisplaced fracture involving the posterior, medial aspect of the left seventh rib and acute nondisplaced fracture involving the lateral aspect of the left eighth rib with adjacent atelectatic changes, additionally acute nondisplaced fractures involving the left transverse processes of T6, 7 and 8 discharged home at that time on narcotic therapy per patient preference who now re-presents to the [facility] ED on 11/28/2024 with significant ongoing pain primarily with severe sharp sudden spasms along his ribs despite [place] with inability to appropriately maintain at home. #1. Mechanical fall with associated intractable pain and muscle spasms secondary to acute nondisplaced fracture involving the posterior, medial aspect of the left seventh rib as well as acute nondisplaced fracture involving lateral aspect of the left eighth rib and acute nondisplaced fractures involving the left transverse processes of T6, 7 and 8: Patient with ED evaluation previously with discharge to home however pain was severe and patient unable to safely appropriately care for himself at home where he lives alone, will admit to medical surgical floor, maintain on fall precautions, strongly encouraged aggressive incentive spirometry and deep inspiratory effort to avoid worsening atelectasis, we use supplemental oxygen nightly given non-PAP therapy compliant, will place lidocaine patches and initiate low-dose gabapentin regimen in addition to low-dose tizanidine given spasms with as needed oral and IV narcotic therapy as last resort. PT/OT/case management consulted for discharge planning however at this time per discussion with patient and given high safety risk for return to home and less does remarkable with therapies would benefit from consideration of skilled placement temporarily. #2. CAD: Status post PCI, we will continue patient Plavix, Xarelto, statin, lisinopril and isosorbide both with hold parameters given BP in the ED elevated although per report has not been taking if blood pressures are decreased. Per record does not appear to be on beta-darvin therapy, unclear reason #3. Chronic Kidney Disease Stage III per GFR trending, unclear subtype: Admission BUN/Cr 22/1.67, GFR 42, baseline renal function appears primarily 1.4- 1.7 although has vacillated, repeat BMP in AM. #4. History of VTE with factor V deficiency: Noted history DVT, PE, continue Xarelto home regimen. #5. Diabetes mellitus type II: Hold oral home regimen, ADA diet, accu checks w/ ISS. #6. Anxiety and depression: We will continue patient home duloxetine regimen. #7. Hypertension: BP above goal in the ED, per report has only been taking his hypertensive medications occasionally depending on the blood pressure level, will at this time continue isosorbide and lisinopril with hold parameters. #8. Hyperlipidemia: Continue patient on statin therapy. #9. Obesity: Weight loss and lifestyle changes encouraged. #10. JORGE A: Noncompliant with PAP therapy, did desaturate not unexpectedly in the ED while sleeping, will maintain on supplemental oxygen nightly. #11. Former tobacco use: Encourage continued tobacco cessation. #12. BPH with obstructive pathology: We will continue patient on Flomax regimen. #13. IBS: We will continue patient home bowel regimen. #14. DVT prophylaxis: We will continue patient home Xarelto regimen. #15. CODE status: Patient denies having healthcare power of estate attorney or living will and notes that he has the paperwork and is interested in doing this thus recommended he discuss this again with case management in the morning. He notes that his and his daughter would be his medical decision makers if necessary but need to clarify as for example he has next of kin listed is Freddy Kaur who is a friend and no one else is listed in the system. Discussed CODE status at length including difference between FULL code, DNR-CCA and DNR-CC status. Following discussions about the differences in these status, requested DNR CCA, no intubation with several examples given with confirmation. Advanced Care Planning Face to Face Time: 16 minutes. Charges/Coding Visit Charges Inpatient E&M: 83804 Init Hosp L2
[2024-11-28 22:44] VITALS: BP 176/80; PULSE 74; RESP 17; TEMP 36.6; O2SAT 94
[2024-11-28 22:57] LABS: Hematocrit 43.8 % (40-54); Hemoglobin 14.5 g/dL (13.0-16.5); Mean Corp Hgb Conc 33.1 g/dL (32-36); Mean Corpuscular Hgb 30.7 pg (27.0-32.0); Mean Corpuscular Volume 92.8 fL (80-94); Mean Platelet Vol. 11.5 fl (6.2-12.0); Platelet Count 183 K/mm3 (150-450); RBC Distribution Width CV 12.8 % (11.6-14.6); RBC Distribution Width SD 43.6 fl (35.1-43.9); Red Blood Count 4.72 M/mm3 (4.6-6.2); White Blood Count 9.4 K/mm3 (4.4-11.0)
--- NOTE | 2024-11-28 23:06 | ED.RN ---
2L NC applied due to spO2 of 85% while sleeping. Patient states he has sleep apnea and reuses to use a cpap at home.
[2024-11-28 23:12] LABS: Anion Gap 7 (5-15); BUN 22 mg/dL (7-18); BUN/Creat Ratio 13.2 RATIO (10-20); Calcium,Total 9.3 mg/dL (8.5-10.1); Chloride 102 mmol/L (98-107); Creatinine, Serum 1.67 mg/dL (0.70-1.30); EST Glomerular Filtration Rate 42 mL/min (>60); Est Glom Filt Rate - Afr Amer 51 mL/min (>60); Estimated Creatinine Clearance 38.55 ml/min; Glucose 112 mg/dL (74-106); Sodium Level 140 mmol/L (136-145)
[2024-11-28 23:58] VITALS: BMI 33.5
[2024-11-29] VITALS (9 sets, daily range): BP systolic 87–155; BP diastolic 47–84; PULSE 76–87; RESP 16–20; TEMP 36.6–37.1; O2SAT 93–98; BMI 33.4
[2024-11-29] MEDS: tiZANidine HCl 2 MG Tablet 4 MG PO (02:47)
[2024-11-29] MEDS: Gabapentin 100 MG Capsule PO ×3 (02:47→12:21)
[2024-11-29 06:55] LABS: Bedside Glucose 166 mg/dL (74-106)
[2024-11-29 06:58] LABS: Absolute Lymphocyte Count 2.04 X10^3/uL (0.83-4.51); Absolute Neutrophil Count 6.5 X10^3/uL (2.0-7.7); Basophil# 0.04 X10^3/uL; Basophil% 0.4 % (0-1); Eosinophil# 0.15 X10^3/uL; Eosinophils% 1.6 % (0-5); Hematocrit 47.3 % (40-54); Lymphocyte # 2.04 X10^3/ul (0.83-4.51); Lymphocyte % 21.4 % (19-41); Mean Corp Hgb Conc 31.7 g/dL (32-36); Mean Corpuscular Hgb 29.5 pg (27.0-32.0); Mean Corpuscular Volume 93.1 fL (80-94); Mean Platelet Vol. 11.6 fl (6.2-12.0); Monocyte# 0.79 X10^3/uL; Monocyte% 8.3 % (0-10); NRBC Flagged by Analyzer 0 % (0-5); Neutrophil # 6.49 X10^3/uL (2.7-7.7); Platelet Count 212 K/mm3 (150-450); RBC Distribution Width CV 12.8 % (11.6-14.6); RBC Distribution Width SD 43.7 fl (35.1-43.9); Red Blood Count 5.08 M/mm3 (4.6-6.2); White Blood Count 9.5 K/mm3 (4.4-11.0)
[2024-11-29 07:16] LABS: ALB/GLOB Ratio 0.9 RATIO (0.9-2.4); AST(SGOT) 108 U/L (15-37); Alanine Aminotransfer ALT/SGPT 102 U/L (16-61); Albumin, Serum 3.6 g/dL (3.2-5.0); Alkaline Phosphatase 182 U/L (45-117); Anion Gap 7 (5-15); BUN 21 mg/dL (7-18); BUN/Creat Ratio 12.1 RATIO (10-20); Calcium,Total 9.2 mg/dL (8.5-10.1); Chloride 101 mmol/L (98-107); Creatinine, Serum 1.74 mg/dL (0.70-1.30); EST Glomerular Filtration Rate 40 mL/min (>60); Est Glom Filt Rate - Afr Amer 48 mL/min (>60); Estimated Creatinine Clearance 36.22 ml/min; Globulin 4.1 g/dL (2.2-4.2); Glucose 189 mg/dL (74-106); Potassium 3.9 mmol/L (3.5-5.1); Protein, Total 7.7 g/dL (6.4-8.2); Sodium Level 135 mmol/L (136-145)
[2024-11-29] MEDS: Rivaroxaban 15 MG Tablet PO (09:06)
[2024-11-29] MEDS: Tamsulosin HCl 0.4 MG Capsule PO (09:06)
[2024-11-29] MEDS: Isosorbide Mononitrate 30 MG Tablet PO (09:06)
[2024-11-29] MEDS: DULoxetine Hcl 60 MG Capsule PO (09:06)
[2024-11-29] MEDS: Lidocaine 5% Patch 2 PATCH TOPICAL (09:07)
[2024-11-29] MEDS: Clopidogrel Bisulfate 75 MG Tablet PO (09:07)
[2024-11-29] MEDS: Lisinopril 10 MG Tablet PO (09:08)
--- NOTE | 2024-11-29 10:32 | PCM.PN.HOSP ---
Reason for Visit Reason for Visit: Diagnoses Pain, unspecified (11/28/24) Subjective Subjective Saw patient at bedside this morning. Patient was sitting back comfortably in bed and in no acute distress. Stated he felt much improved this morning from a pain standpoint. Noted that the muscle relaxer was especially helpful for his muscle spasms. He has had very mild muscle spasms this morning that were tolerable. He had not got out of bed to work with physical therapy yet today. No other new concerns today. Objective Data Objective Data Vital Signs: Vital Signs Temp Pulse Resp BP Pulse Ox O2 Del Method O2 Flow Rate 98.7 F 87 16 128/71 H 93 Nasal Cannula 4 11/29/24 08:00 11/29/24 08:00 11/29/24 08:00 11/29/24 08:00 11/29/24 08:10 11/29/24 08:10 11/29/24 08:10 Oxygen Flow Rate (L/min) 4 Oxygen Delivery Method Nasal Cannula Weight: 100 kg Body Mass Index (BMI) 33.4 Intake & Output: Intake and Output for Last 24 Hours 11/27/24 11/28/24 11/29/24 23:59 23:59 23:59 Intake Total 500 / 500 Balance 500 / 500 Lab / Micro Data 11/29/24 06:02 11/29/24 06:02 Labs: Laboratory Results - last 24 hr 11/28/24 22:34: WBC 9.4, RBC 4.72, Hgb 14.5, Hct 43.8, MCV 92.8, MCH 30.7, MCHC 33.1, RDW Std Deviation 43.6, RDW Coeff of Jarad 12.8, Plt Count 183, MPV 11.5, Sodium 140, Potassium 4.0, Chloride 102, Carbon Dioxide 31.0, Anion Gap 7, BUN 22 H, Creatinine 1.67 H, Estim Creat Clear Calc 38.55, Est GFR (MDRD) Af Amer 51 L, Est GFR (MDRD) Non-Af 42 L, BUN/Creatinine Ratio 13.2, Glucose 112 H, Calcium 9.3 11/29/24 06:02: WBC 9.5, RBC 5.08, Hgb 15.0, Hct 47.3, MCV 93.1, MCH 29.5, MCHC 31.7 L, RDW Std Deviation 43.7, RDW Coeff of Jarad 12.8, Plt Count 212, MPV 11.6, Immature Gran % (Auto) 0.300, Neut % (Auto) 68.0, Lymph % (Auto) 21.4, [place] % (Auto) 8.3, Eos % (Auto) 1.6, Baso % (Auto) 0.4, Absolute Neuts (auto) 6.5, Absolute Lymphs (auto) 2.04, Nucleated RBC % 0, Sodium 135 L, Potassium 3.9, Chloride 101, Carbon Dioxide 27.0, Anion Gap 7, BUN 21 H, Creatinine 1.74 H, Estim Creat Clear Calc 36.22, Est GFR (MDRD) Af Amer 48 L, Est GFR (MDRD) Non-Af 40 L, BUN/Creatinine Ratio 12.1, Glucose 189 H, Calcium 9.2, Total Bilirubin 1.50 H, AST 108 H, ALT 102 H, Alkaline Phosphatase 182 H, Total Protein 7.7, Albumin 3.6, Globulin 4.1, Albumin/Globulin Ratio 0.9 11/29/24 06:22: POC Glucose 166 H Radiography Diagnostic Testing: Radiology Impression Chest X-Ray 11/28/24 21:46 IMPRESSION: Left rib fractures. Blunting of the left costophrenic sulcus which may represent a small pleural effusion. Left basilar atelectasis. Reading Location: [facility] Physical Exam Const alert, oriented x3 and no apparent distress Constitutional Narrative: Pleasant elderly male, class I obesity, sitting back comfortably in bed, conversing normally, in no acute distress. General Appearance: cooperative and comfortable HEENT normocephalic, head/scalp atraumatic, hearing grossly normal bilaterally, nasal mucous membranes and turbinates normal and moist oral mucous membranes Eyes PERRL, EOMs intact bilaterally and conjunctivae normal Neck full ROM Chest inspection of chest normal Resp normal respiratory effort, normal air movement, no use of accessory muscles and clear to auscultation bilaterally Cardio regular rate, regular rhythm, no murmurs and peripheral pulses 2+ throughout GI normal to inspection, nondistended, normoactive bowel sounds, soft to palpation, non-tender and non-distended Back/Spine Back/Spine Narrative: Mild tenderness palpation diffusely in mid back. Did not attempt motion with him. Extremity normal to inspection, full ROM and no pedal edema Skin no rashes or lesions noted Neuro moves all extremities and no focal motor deficits Psych mental status grossly normal Assessment & Plan Assessment/Plan (1) Intractable pain: (2) Left rib fracture: (3) Fracture of transverse process of thoracic vertebra: PLAN: Plan Patient is an 84-year-old male who presented [facility] ED on 11/28/2024 with worsening muscle pain with spasms after recent fall with rib fractures. 1. Intractable muscular pain with spasms and acute debility secondary to recent mechanical fall with left rib and thoracic transverse process fractures ? PT/OT/case management following. Patient lives at home alone. Mechanical fall on 11/27 and was seen in the ED for this. CT chest showed acute nondisplaced fractures involving the posterior left seventh rib and lateral aspect of left eighth rib, along with acute nondisplaced fractures involving the T6-8 transverse processes. [place] comfortable going home but developed significant muscular pain with spasms and came back to the ED on 11/28 for this. Pain and spasms much improved with medication on 11/29. Continue Tylenol, oxycodone, IV Dilaudid and tizanidine as needed. Appreciate further therapy recommendations. Chronic medical conditions: ? Class I obesity: BMI 33 on admit. Complicates hospital course, care and prognosis. ? CAD s/p stenting, hypertension, hyperlipidemia: Stable. Continue home Plavix, statin, nitrate and lisinopril. ? CKD stage III: Creatinine stable at baseline 1.6-1.7 since admit. ? History of VTE with factor V deficiency: Continue home Xarelto. ? Type 2 diabetes mellitus: Holding home oral medications and treating with sliding scale insulin with meals while inpatient. ? Anxiety/depression: Stable. Continue home duloxetine. ? JORGE A: Noncompliant with home CPAP, can wear here as needed. ? BPH with obstructive symptoms: Continue home Flomax. ? IBS: Continue home medication. ? Former tobacco use: Encouraged continued cessation. DVT prophylaxis: Not indicated, on Xarelto CODE STATUS: DNR CCA, DNI Expected disposition: TBD Total clinical time spent by myself addressing the patient's medical issues, reviewing all the data, and collaborating with patient's care team: 35 minutes. Charges/Coding Visit Charges Inpatient E&M: 14245 Subs Hosp L2
[2024-11-29 11:42] LABS: Bedside Glucose 187 mg/dL (74-106)
--- NOTE | 2024-11-29 11:49 | CASEMGMT ---
ORTIZ JOHNS Assessment Face to Face with patient for initial transition planning/care coordination assessment. ORTIZ JOHNS introduced self and role at [facility], pt voices understanding. Pt is A&Ox4 and is resting comfortably in the chair and is calm. Care providers, pharmacy, and demographics verified. Admitting dx: Intractable Pain s/p fall PCP: Dane Cobb Specialists: Perico (GI) Preferred [facility]acy: [facility] Prescription Benefit: Yes LNOK: Freddy Kaur (Friend) Living Arrangements: Pt lives alone in a 2 story home with 3 steps to enter with handrails throughout ADLs/IADLs: Reports independent at baseline. Pt fell at the [place] and states that it was because there were no handrails. PT is ordered and pending. Transportation: Self, friends. Pt states that he does not have any family. Pt states that OP Tx is not an option because he does not feel safe driving with the medication that he is on (Pain meds and muscle relaxers) and does not want to get his friends involved. DME: [facility] with sufficient supplies. This RN ANDREAS inquired if the pt would be interested in an Rx for a FWW and/or a MAS. Pt declines both at this time. Pt is currently on room air. HHC/SNF: Denies history Pt?s goal: Return to PLOF Plan: TBD. Anticipate acute rehab vs return home with HH contingent on therapy evaluations. At this time, the pt states that he wants to go to a skilled facility for further rehab prior to returning home. Pt states that he is extremely painful and does not feel safe returning home alone at this time. SW notified and will provide the pt with a list of options once appropriate. CM and SW to follow. Pt denies further questions or concerns at this time. Nia Loco RN, CM
--- NOTE | 2024-11-29 12:04 | CASEMGMT ---
Social Work- SW was made aware by RNCM that pt would like SNF. RNCM reports that he explained levels of care. Therapy has not seen at this time. SW notified physician that SW is following for any therapy needs to collaborate on discharge planning. SW will continue to follow for needs. ROSE Underwood
[2024-11-29] MEDS: Insulin Lispro 100 UNIT/ML INSULN.PEN SC (12:21)
[2024-11-29] MEDS: Acetaminophen 325 MG Tablet 650 MG PO ×2 (13:44→23:00)
[2024-11-29] MEDS: tiZANidine HCl 2 MG Tablet PO (13:44)
[2024-11-29] MEDS: Lactated Ringers 1,000 ML 500 ML IV (15:20)
[2024-11-29] MEDS: 0.9% Saline Lock 10 ML Syringe IV ×2 (15:20→21:31)
[2024-11-29 16:19] LABS: Bedside Glucose 124 mg/dL (74-106)
[2024-11-29 17:24] LABS: Bedside Glucose 137 mg/dL (74-106)
[2024-11-29] MEDS: Atorvastatin Calcium 10 MG Tablet PO (21:31)
--- NOTE | 2024-11-29 21:33 | NURSING ---
removed 2 patches.
[2024-11-29 21:59] LABS: Bedside Glucose 129 mg/dL (74-106)
[2024-11-29] MEDS: MELATONIN 3 MG TABLET PO (22:59)
[2024-11-30] VITALS (8 sets, daily range): BP systolic 106–126; BP diastolic 56–62; PULSE 78–90; RESP 18–20; TEMP 36.4–37.1; O2SAT 92–96; BMI 34.3
[2024-11-30] MEDS: Acetaminophen 325 MG Tablet 650 MG PO ×2 (03:26→19:46)
--- NOTE | 2024-11-30 03:43 | PCM.HOSP.N ---
Hospitalist Note RN noting that patient had bout of emesis, appears possible coffee ground. He noted feeling improved after having the bout of emesis and was nauseated prior. Will obtain guiac on the emesis. Will transition to NPO. Will order protonix bolus and drip pending the results. CBC ordered for AM. Currently on plavix and NOAC for VTE with factor V deficiency (DVT, PE) as well as plavix with CAD s/p PCI. Will not hold these agents yet unless the guiac is positive. If positive will request GI evaluation and hold them temporarily.
[2024-11-30] MEDS: 0.9% Saline Lock 10 ML Syringe IV (04:14)
[2024-11-30] MEDS: Pantoprazole Sodium 80 MG in 0.9% Normal Saline (50mL Bag) 15 ML 420 MG IV BOLUS (04:14)
[2024-11-30] MEDS: Pantoprazole Sodium 80 MG in 0.9% Normal Saline (100mL Bag) 80 ML 10 MG CONT INF ×2 (04:22→14:15)
[2024-11-30] MEDS: Insulin Lispro 100 UNIT/ML INSULN.PEN SC (06:41)
[2024-11-30 07:10] LABS: Bedside Glucose 162 mg/dL (74-106)
[2024-11-30 09:02] LABS: Hematocrit 41.7 % (40-54); Hemoglobin 13.8 g/dL (13.0-16.5); Mean Corp Hgb Conc 33.1 g/dL (32-36); Mean Corpuscular Hgb 30.1 pg (27.0-32.0); Mean Corpuscular Volume 90.8 fL (80-94); Mean Platelet Vol. 11.3 fl (6.2-12.0); Platelet Count 206 K/mm3 (150-450); RBC Distribution Width CV 12.7 % (11.6-14.6); Red Blood Count 4.59 M/mm3 (4.6-6.2); White Blood Count 10.5 K/mm3 (4.4-11.0)
[2024-11-30 09:34] LABS: Anion Gap 12 (5-15); BUN 42 mg/dL (7-18); BUN/Creat Ratio 15.7 RATIO (10-20); Calcium,Total 8.9 mg/dL (8.5-10.1); Chloride 97 mmol/L (98-107); Creatinine, Serum 2.68 mg/dL (0.70-1.30); EST Glomerular Filtration Rate 24 mL/min (>60); Est Glom Filt Rate - Afr Amer 29 mL/min (>60); Estimated Creatinine Clearance 23.83 ml/min; Glucose 139 mg/dL (74-106); Potassium 3.8 mmol/L (3.5-5.1); Sodium Level 134 mmol/L (136-145)
--- NOTE | 2024-11-30 10:36 | PCM.PN.HOSP ---
Reason for Visit Reason for Visit: Diagnoses Pain, unspecified (11/28/24) Unspecified fracture of unspecified thoracic vertebra, initial encounter for closed fracture (11/28/24) Fracture of one rib, left side, initial encounter for closed fracture (11/28/24) Subjective Subjective Overnight patient had an episode of vomiting and it appeared consistent with coffee-ground emesis. Stool occult sample was positive for blood. On labs morning, hemoglobin had dropped from 15.0 to 13.8 but patient also received a liter of IV fluids yesterday. When I saw this morning, patient was sitting comfortably in bedside chair and appeared to have good energy. He was alert and oriented x 3 and conversing normally. He denied any nausea this morning. Noted that he did feel nauseous overnight with the episode of vomiting but that this somewhat came out of nowhere and surprised him. He noted that his pain is fairly well-controlled this morning. He is feeling hungry. No other acute concerns this morning. Objective Data Objective Data Vital Signs: Vital Signs Temp Pulse Resp BP Pulse Ox O2 Del Method O2 Flow Rate 97.7 F L 79 18 114/62 95 Nasal Cannula 4 11/30/24 09:20 11/30/24 09:20 11/30/24 09:20 11/30/24 09:20 11/30/24 09:20 11/30/24 09:20 11/30/24 09:20 Oxygen Flow Rate (L/min) 4 Oxygen Delivery Method Nasal Cannula Weight: 102.7 kg Body Mass Index (BMI) 34.3 Intake & Output: Intake and Output for Last 24 Hours 11/28/24 11/29/24 11/30/24 23:59 23:59 23:59 Intake Total 2650 / 2650 335 / 335 Balance 2650 / 2650 335 / 335 Lab / Micro Data 11/30/24 08:46 11/30/24 08:46 Labs: Laboratory Results - last 24 hr 11/29/24 11:22: POC Glucose 187 H 11/29/24 15:01: POC Glucose 137 H 11/29/24 15:57: POC Glucose 124 H 11/29/24 21:29: POC Glucose 129 H 11/30/24 06:40: POC Glucose 162 H 11/30/24 08:46: WBC 10.5, RBC 4.59 L, Hgb 13.8, Hct 41.7, MCV 90.8, MCH 30.1, MCHC 33.1, RDW Std Deviation 42.0, RDW Coeff of Jarad 12.7, Plt Count 206, MPV 11.3, Sodium 134 L, Potassium 3.8, Chloride 97 L, Carbon Dioxide 25.0, Anion Gap 12, BUN 42 H, Creatinine 2.68 H, Estim Creat Clear Calc 23.83, Est GFR (MDRD) Af Amer 29 L, Est GFR (MDRD) Non-Af 24 L, BUN/Creatinine Ratio 15.7, Glucose 139 H, Calcium 8.9 Micro: Microbiology 11/30/24 03:45 Vomitus Gastric Occult Blood - Final Physical Exam Const alert, oriented x3 and no apparent distress Constitutional Narrative: Pleasant elderly male, class I obesity, good energy level this morning, alert and oriented x 3, sitting back comfortably in bedside chair, in no acute distress. General Appearance: cooperative and comfortable HEENT normocephalic, head/scalp atraumatic, hearing grossly normal bilaterally, nasal mucous membranes and turbinates normal and moist oral mucous membranes Eyes PERRL, EOMs intact bilaterally and conjunctivae normal Neck full ROM Chest inspection of chest normal Resp normal respiratory effort, normal air movement, no use of accessory muscles and clear to auscultation bilaterally Cardio regular rate, regular rhythm, no murmurs and peripheral pulses 2+ throughout GI normal to inspection, nondistended, normoactive bowel sounds, soft to palpation, non-tender and non-distended Back/Spine Back/Spine Narrative: Mild tenderness palpation diffusely in mid back. Did not attempt motion with him. Extremity normal to inspection, full ROM and no pedal edema Skin no rashes or lesions noted Neuro moves all extremities and no focal motor deficits Psych mental status grossly normal Assessment & Plan Assessment/Plan (1) Intractable pain: (2) Left rib fracture: (3) Fracture of transverse process of thoracic vertebra: PLAN: Plan Patient is an 84-year-old male who presented [facility] ED on 11/28/2024 with worsening muscle pain with spasms after recent fall with rib fractures. 1. Intractable muscular pain with spasms and acute debility secondary to recent mechanical fall with left rib and thoracic transverse process fractures ? PT/OT/case management following. Patient lives at home alone. Mechanical fall on 11/27 and was seen in the ED for this. CT chest showed acute nondisplaced fractures involving the posterior left seventh rib and lateral aspect of left eighth rib, along with acute nondisplaced fractures involving the T6-8 transverse processes. Jackson comfortable going home but developed significant muscular pain with spasms and came back to the ED on 11/28 for this. Pain and spasms were improved with medication on 11/29. However, he unfortunately had significant hypotension and confusion with tizanidine on 11/29 as noted below so this medication was discontinued. Okay to continue Tylenol, oxycodone and IV Dilaudid as needed. Borderline therapy scores to this point, likely planning for SNF on discharge. 2. Nausea/vomiting with concern for coffee-ground emesis and upper GI bleed ? 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 Per nursing staff, appeared consistent with coffee-ground emesis. Stool occult test was positive. Patient denies previous history of GI bleed but he is on Plavix and Xarelto as noted below. Holding Eliquis and Plavix. GI consulted. Okay for clear liquid diet today, n.p.o. at midnight for possible EGD tomorrow. Continue IV PPI twice daily for now. Continue to monitor CBC daily. 3. Adverse drug reaction ? Patient had an episode of hypotension to the 80s over 40s and confusion after a dose of tizanidine 2 mg on 11/29. Tizanidine discontinued. Chronic medical conditions: ? Class I obesity: BMI 33 on admit. Complicates hospital course, care and prognosis. ? CAD s/p stenting, hypertension, hyperlipidemia: Stable. Continue home statin, nitrate and lisinopril. Holding Plavix as above. ? CKD stage III: Creatinine stable at baseline 1.6-1.7 since admit. ? 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 ? Type 2 diabetes mellitus: Holding home oral medications and treating with sliding scale insulin with meals while inpatient. ? Anxiety/depression: Stable. Continue home duloxetine. ? JORGE A: Noncompliant with home CPAP, can wear here as needed. ? BPH with obstructive symptoms: Continue home Flomax. ? IBS: Continue home medication. ? Former tobacco use: Encouraged continued cessation. DVT prophylaxis: SCDs CODE STATUS: DNR CCA, DNI Expected disposition: Likely SNF, 1 to 2 days Total clinical time spent by myself addressing the patient's medical issues, reviewing all the data, and collaborating with patient's care team: 35 minutes. Charges/Coding Visit Charges Inpatient E&M: 40113 Subs Hosp L2
[2024-11-30] MEDS: Gabapentin 100 MG Capsule PO ×2 (11:42→17:59)
[2024-11-30] MEDS: DULoxetine Hcl 60 MG Capsule PO (11:42)
[2024-11-30] MEDS: Lidocaine 5% Patch 2 PATCH TOPICAL (11:42)
[2024-11-30] MEDS: Tamsulosin HCl 0.4 MG Capsule PO (11:42)
[2024-11-30 12:14] LABS: Bedside Glucose 128 mg/dL (74-106)
--- NOTE | 2024-11-30 16:33 | EX.PCM.CON.G ---
HPI Consult Data Date of Consult: 12/01/24 HPI Narrative Reason for Consultation: Anemia HPI Narrative: ADAN PATEL, is a 84-year-old male who presented to the ED status post fall. He has a past medical history of CAD status post PCI, history VTE with factor V deficiency (DVT, PE), who presented to the ED evaluation 11/27/2024 with history of walking to a restaurant that evening approximately 7 PM with no railing unfortunately losing his balance and fell going up 2 steps hitting his head on the wall going down. CT brain with no acute intracranial findings, plain film of the left shoulder with no acute findings, CT of the chest with an acute nondisplaced fracture involving the posterior, medial aspect of the left seventh rib and acute nondisplaced fracture involving the lateral aspect of the left eighth rib with adjacent atelectatic changes. While in the hospital he developed nausea/vomiting with concern for coffee-ground emesis and upper GI bleed. 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 Per nursing staff, appeared consistent with coffee-ground emesis. Stool occult test was positive. Patient denies previous history of GI bleed but he is on Plavix and Xarelto as noted below. [facility] Medical History Sleep apnea CAD (coronary artery disease) Depression IBS (irritable bowel syndrome) Stage 3b chronic kidney disease (CKD) Anticoagulated Diabetes Hx pulmonary embolism HTN (hypertension) Factor V deficiency Current use of detention anticoagulation Hyperlipidemia Medical History no medical history Home Medications ?Medication ?Instructions ?Recorded ?Last Taken ?Type duloxetine 60 mg capsule,delayed 60 mg PO DAILY depression 01/21/16 11/25/24 10:00 History release lisinopril 10 mg tablet 10 mg PO DAILY blood pressure 01/21/16 12/10/22 History Held on 12/13/22. Instructions: Until blood pressure is 130/80 or higher clopidogrel 75 mg tablet 75 mg PO DAILY blood thinner 12/11/22 11/25/24 10:00 History eluxadoline 100 mg tablet (Viberzi) 200 mg PO DAILY stomach 12/11/22 11/25/24 10:00 History isosorbide mononitrate 30 mg 30 mg PO DAILY heart 12/11/22 12/10/22 History tablet,extended release 24 hr Held on 12/13/22. Instructions: Until blood pressure is 130/80 or higher loperamide 2 mg capsule 2 mg PO Q6H PRN Diarrhea 12/11/22 Unknown History omega-3 fatty acids 1,000 mg 1,000 mg PO DAILY supplement 12/11/22 11/25/24 10:00 History capsule rivaroxaban 15 mg tablet (Xarelto) 15 mg PO BIDCM blood thinner 12/11/22 11/25/24 10:00 History rosuvastatin 5 mg tablet 5 mg PO DAILY CHOLESTEROL 12/11/22 11/25/24 10:00 History saxagliptin 2.5 mg tablet 2.5 mg PO DAILY blood sugars 12/11/22 11/25/24 10:00 History tamsulosin 0.4 mg capsule 0.4 mg PO DAILY retention 11/27/24 11/25/24 10:00 History ketoconazole 2 % topical cream 1 applic topical BID PRN exczema 11/28/24 Unknown History linagliptin 5 mg tablet (Tradjenta) 5 mg PO DAILY glucose 11/28/24 11/25/24 10:00 History Allergy/AdvReac Type Severity Reaction Status Date / Time simvastatin AdvReac Other Verified 11/28/24 20:03 Family History Mother Heart disease Hypertension Heart failure Father Heart disease Hypertension Family History no significant family his Surgical History Hx of abdominal surgery Status post cholecystectomy S/P nasal surgery Stented coronary artery Surgical History no surgical history Social History household members: none Smoking Status: Former smoker alcohol intake: never substance use type: does not use ROS Constitutional Constitutional: Denies fatigue, fever(s), poor appetite, weight gain or weight loss Gastrointestinal Gastrointestinal: Denies belching, bloating, change in bowel habits, change in stool character, chewing difficulty, coffee ground emesis, constipation, cramping, diarrhea, dyspepsia, dysphagia, early satiety, excessive flatus, fecal incontinence, heartburn, hematemesis, hematochezia, hemorrhoids, loose stools, melena, nausea, odynophagia, rectal bleeding, tenesmus, vomiting or weight changes Physical Exam Const alert, oriented x3, no apparent distress and healthy appearing General Appearance: cooperative GI normal to inspection, nondistended, normoactive bowel sounds, soft to palpation, non-tender and non-distended Percussion: normal to percussion Rectal Exam: deferred Lab / Micro Data 12/01/24 05:34 12/01/24 05:34 Labs: Laboratory Results - last 24 hr 11/30/24 17:14: POC Glucose 141 H 11/30/24 22:04: POC Glucose 101 12/01/24 05:34: WBC 10.3, RBC 4.29 L, Hgb 13.2, Hct 38.6 L, MCV 90.0, MCH 30.8, MCHC 34.2, RDW Std Deviation 41.6, RDW Coeff of Jarad 12.5, Plt Count 208, MPV 11.1, PT 14.5, INR 1.1, APTT 28.3, Sodium 129 L, Potassium 3.7, Chloride 97 L, Carbon Dioxide 24.0, Anion Gap 8, BUN 41 H, Creatinine 2.17 H, Estim Creat Clear Calc 29.43, Est GFR (MDRD) Af Amer 37 L, Est GFR (MDRD) Non-Af 31 L, BUN/Creatinine Ratio 18.9, Glucose 134 H, Hemoglobin A1c 6.2 H, Calcium 8.5, Total Bilirubin 1.30 H, AST 49 H, ALT 65 H, Alkaline Phosphatase 133 H, Total Protein 6.5, Albumin 2.9 L, Globulin 3.6, Albumin/Globulin Ratio 0.8 L 12/01/24 07:21: POC Glucose 131 H 12/01/24 10:39: POC Glucose 125 H Micro: Microbiology 11/30/24 11:05 Interface Orders Stool Occult Blood (JJ) - Final Imaging Radiology Impression Chest X-Ray 12/01/24 05:55 IMPRESSION: Small left pleural effusion and mild bibasilar atelectatic changes. Reading Location: [facility] Assessment & Plan Assessment/Plan (1) Chronic anticoagulation: (2) GI bleed: PLAN: 84-year-old with history of factor V deficiency and history of pulmonary embolism on chronic anticoagulation also history of CAD on antiplatelet therapy who had multiple episodes of nausea vomiting and hematemesis. Plan is to evaluate his upper GI tract for upper GI bleed. Differential diagnosis does include Reina-Lawson tear, peptic ulcer disease, angiodysplasia, neoplasia. He was explained alternatives, risk and benefits include almost any bleeding, infection, sepsis, perforation, need for charge and . Have an ASA of 3. Charges/Coding Visit Charges Inpatient E&M: 89483 Init Hosp L3
[2024-11-30 17:48] LABS: Bedside Glucose 141 mg/dL (74-106)
[2024-11-30] MEDS: oxyCODONE 5 MG Tablet PO (19:45)
[2024-11-30] MEDS: Atorvastatin Calcium 10 MG Tablet PO (21:49)
[2024-11-30 22:34] LABS: Bedside Glucose 101 mg/dL (74-106)
[2024-12-01] VITALS (23 sets, daily range): BP systolic 90–135; BP diastolic 48–77; PULSE 73–98; RESP 16–28; TEMP 36.1–37.5; O2SAT 90–100; BMI 35.7
[2024-12-01] MEDS: Pantoprazole Sodium 80 MG in 0.9% Normal Saline (100mL Bag) 80 ML 10 MG CONT INF ×3 (02:00→22:50)
--- NOTE | 2024-12-01 02:43 | EKG12_ITS ---
Test Reason : EGD Blood Pressure : */* mmHG Vent. Rate : 92 BPM Atrial Rate : 92 BPM P-R Int : 156 ms QRS Dur : 92 ms QT Int : 350 ms P-R-T Axes : -12 -35 105 degrees QTcB Int : 432 ms Sinus rhythm with Premature atrial complexes Left axis deviation T wave abnormality, consider lateral ischemia Abnormal ECG When compared with ECG of 05-Feb-2017 16:21, Premature atrial complexes are now Present T wave inversion now evident in Lateral leads Confirmed by Brooks Kellogg ([id number]), sports editor MARIA GUADALUPE GREGG ([id number]) on 12/01/2024 1:46:26 PM Referred By: MEG Confirmed By: Brooks Kellogg
--- NOTE | 2024-12-01 04:01 | PCM.HOSP.N ---
Hospitalist Note Patient with increased oxygen needs, will repeat CXR in AM.
[2024-12-01 05:48] LABS: Hematocrit 38.6 % (40-54); Hemoglobin 13.2 g/dL (13.0-16.5); Mean Corp Hgb Conc 34.2 g/dL (32-36); Mean Corpuscular Hgb 30.8 pg (27.0-32.0); Mean Platelet Vol. 11.1 fl (6.2-12.0); Platelet Count 208 K/mm3 (150-450); RBC Distribution Width CV 12.5 % (11.6-14.6); RBC Distribution Width SD 41.6 fl (35.1-43.9); Red Blood Count 4.29 M/mm3 (4.6-6.2); White Blood Count 10.3 K/mm3 (4.4-11.0)
[2024-12-01 05:53] LABS: International Normalized Ratio 1.1; Partial Thromboplast Time 28.3 Seconds (24.1-36.2); Prothrombin Time (Protime)PT. 14.5 SECONDS (11.7-14.9)
--- NOTE | 2024-12-01 05:55 | RAD_ITS ---
PROCEDURE: CHEST 1 VIEW (PORTABLE) REASON FOR EXAM: Dyspnea. Multiple left-sided rib fractures. TECHNIQUE: Frontal view of the chest. COMPARISON: Chest x-ray from 11/28/2024. FINDINGS: Cardiac size is stable. Pulmonary vasculature is unremarkable. Again identified is blunting of the left costophrenic angle related to a small left pleural effusion with adjacent mild atelectasis. Right basilar atelectasis is present. Left 7th and 8th rib fractures are better seen on the prior CT exam. No pneumothorax is identified. RAD/Chest 1 View (Portable) IMPRESSION: Small left pleural effusion and mild bibasilar atelectatic changes. Reading Location: [facility]
[2024-12-01 06:16] LABS: ALB/GLOB Ratio 0.8 RATIO (0.9-2.4); AST(SGOT) 49 U/L (15-37); Alanine Aminotransfer ALT/SGPT 65 U/L (16-61); Albumin, Serum 2.9 g/dL (3.2-5.0); Alkaline Phosphatase 133 U/L (45-117); Anion Gap 8 (5-15); BUN 41 mg/dL (7-18); BUN/Creat Ratio 18.9 RATIO (10-20); Calcium,Total 8.5 mg/dL (8.5-10.1); Chloride 97 mmol/L (98-107); Creatinine, Serum 2.17 mg/dL (0.70-1.30); EST Glomerular Filtration Rate 31 mL/min (>60); Est Glom Filt Rate - Afr Amer 37 mL/min (>60); Estimated Creatinine Clearance 29.43 ml/min; Globulin 3.6 g/dL (2.2-4.2); Glucose 134 mg/dL (74-106); Potassium 3.7 mmol/L (3.5-5.1); Protein, Total 6.5 g/dL (6.4-8.2); Sodium Level 129 mmol/L (136-145)
[2024-12-01 07:43] LABS: Bedside Glucose 131 mg/dL (74-106)
[2024-12-01 09:54] LABS: Hemoglobin A1c 6.2 % (3.8-5.6)
[2024-12-01] MEDS: Lidocaine 5% Patch 2 PATCH TOPICAL (10:36)
--- NOTE | 2024-12-01 10:44 | NURSING ---
1036: taping supervisor notified
[2024-12-01 10:57] LABS: Bedside Glucose 125 mg/dL (74-106)
--- NOTE | 2024-12-01 12:23 | CASEMGMT ---
Discharge Planning A list of?SNF providers including quality and resource use data and consistent with the patient's preferred geographic region, medical needs, and insurance network was created in [employer] Guide.? This list was provided to the SW. Marielos Bennett Discharge Planning Asst.
--- NOTE | 2024-12-01 14:26 | CASEMGMT ---
Referral sent to [facility]. Marielos eBnnett DC Planning Asst.
--- NOTE | 2024-12-01 14:58 | CASEMGMT ---
Social Work- SW met with pt to discuss discharge preference. A list of SNF providers including quality and resource use data and consistent with the patient?s preferred geographic region, medical needs, and insurance network were provided from the [employer] Guide. Pt reports that he would like [facility]. Pt will review list for additional choices. DCA notified of referral request. ROSE Underwood
--- NOTE | 2024-12-01 15:45 | PCM.PRE.AN2 ---
ASA Classification* ASA Classification ASA Classification: 3 and E Assessment & Plan Anesthesia* Anesthesia Assessment Anesthesia Assessment: Discussed sedation and/or anesthesia options, risks, benefits, and alternatives with patient/parents/legal guardian/POA. Questions invited. The patient/parents/legal guardian/POA seems to understand and agrees to proceed with anesthesia plan. Reviewed the physical assessment, medical history, allergy history and patient home medications list prior to surgery/procedure/anesthetic and documented any changes. Performed airway and anesthesia risk assessments. Anesthesia Type Anesthesia Type: MAC Anesthesia Focused Assessment* Temperature: 98.2 F Pulse Rate: 90 Blood Pressure: 112/57 Respiratory Rate: 18 Pulse Ox: 96 Oxygen Flow Rate (L/min): 4 Airway Assessment Mouth opens: >3 cm Mallampati Score: II Comment: bibasilar atleectalic changes lungs on chest xray 12/01/24 6 am Focused Labs Anesthesia Preop lab: CBC WBC 10.3 K/mm3 (4.4-11.0) 12/01/24 05:12/01/24 RBC 4.29 M/mm3 (4.6-6.2) L 12/01/24 05:34 12/01/24 Hgb 13.2 g/dL (13.0-16.5) 12/01/24 05:34 12/01/24 Hct 38.6 % (40-54) L 12/01/24 05:34 12/01/24 Plt Count 208 K/mm3 (150-450) 12/01/24 05:34 12/01/24 CHEMISTRY Potassium 3.7 mmol/L (3.5-5.1) 12/01/24 05:34 12/01/24 Sodium 129 mmol/L (136-145) L 12/01/24 05:34 12/01/24 Magnesium 2.4 mg/dL (1.6-2.6) 12/12/22 06:12/12/22 Phosphorus 2.8 mg/dL (2.5-4.9) 12/12/22 06:12/12/22 BUN 41 mg/dL (7-18) H 12/01/24 05:34 12/01/24 Creatinine 2.17 mg/dL (0.70-1.30) H 12/01/24 05:34 12/01/24 Glucose 134 mg/dL (74-106) H 12/01/24 05:34 12/01/24 POC Glucose 125 mg/dL (74-106) H 12/01/24 10:39 12/01/24 COAG PT 14.5 SECONDS (11.7-14.9) 12/01/24 05:34 12/01/24 Pre-Assessment Diagnosis/Proposed Procedure Planned Operative Procedure(s): EGD Anesthesia History Anesthesia History - lay health advocate: Anesthesia History - lay health advocate Hx Hospitalization Any Problems With Anesthesia Cholinesterase deficiency You/Your Family Experience fever (hyperthermia) with Relationship Recent Exposure to Contagious Disease Does patient have nerve stimulator Patient instructed to have device shut off --Does patient have Pacemaker or ICD? When Was Last Pacemaker Check QUESTION #4 FULL TEXT: You/Your Family Experience fever (hyperthermia) with Anesthesia Last Oral Intake Last Oral intake: Last Oral Intake NPO since Meds taken in AM with sips of water? Meds patient instructed to take am of surgery PONV PONV - lay health advocate: PONV - lay health advocate Female HX of Motion Sickness HX of N/V After Surgery Non-Smoker Duration of Surgery greater than 60 minutes Number of Risk Factors PONV Score Height & Weight Height & Weight: Anesthesia: Height & Weight Height 5 ft 8 in 11/28/24 23:58 Weight: 106.9 kg 12/01/24 06:00 Body Mass Index (BMI) 35.7 12/01/24 06:00 Respiratory Assessment Respiratory Assessment - lay health advocate: Respiratory Tract Infection Hx - lay health advocate Hx Respiratory Tract Infection STOP Sleep Apnea STOP Sleep Apnea - lay health advocate: STOP Sleep Apnea - lay health advocate Hx Hypertension Yes 11/30/24 09:58 Hx Sleep Apnea No 11/29/24 00:13 CPAP Yes: DOESN'T USE AT HOME 12/11/22 16:00 BIPAP Yes 12/11/22 16:00 Do you snore loudly (louder No 11/29/24 00:13 than talking or can be heard Do you often feel tired/ No 11/29/24 00:13 fatigued/ sleepy during daytime? Has anyone observed you stop No 11/29/24 00:13 breathing during sleep? STOP Results Negative 11/29/24 00:13 QUESTION #5 FULL TEXT : Do you snore loudly (louder than talking or can be heard through closed doors)? Tobacco Use History Tobacco Use History - lay health advocate: Tobacco Use History - lay health advocate Tobacco Use Smoking Status Former smoker 11/29/24 00:13 Hx Tobacco Use No 11/29/24 00:13 Years Smoking Packs Smoked per Day Smoking Cessation Date was No - quit smoking greater 11/29/24 00:13 within the last 15 years than 15 years ago Hx Smoking Cessation Date Hx Smoking Cessation Counseling Hematologic Medial History Hematologic Hx - lay health advocate: Hematologic Medical Hx - manager costing Hx of Blood Transfusion No 11/29/24 00:13 Hx of Transfusion in last 3 No 11/29/24 00:13 Months Date of Last Transfusion (if within last 3 months) Ever experience any problems No 11/29/24 00:13 with transfusion(s)? Specify any problems Hx of Preganancy in last 3 N/A 11/29/24 00:13 Months Nurse Filling Out Transfusion AHINES 11/29/24 00:13 & Questions: Date: 11/29/24 11/29/24 00:13 Time: 00:14 11/29/24 00:13 Patient unable to answer at this time (ie. confused, unrespo /Reproduction History /Reproductive History - lay health advocate: /Reproductive Hx- lay health advocate Hx Now Gestational Age (in weeks): EDC: Hx Hx Para Hx Section SAB Active Medications Active Medications: Current Medications Generic Name Dose Route Start Last Admin Trade Name Freq PRN Reason Stop Dose Admin Acetaminophen 650 mg 11/29/24 01:49 11/30/24 19:46 Acetaminophen 325 Mg Tablet PO 650 mg Q4H PRN PRN Administration Fever, pain 1-10/10 Hydrocodone Bitart/Acetaminophen 1 tablet 12/01/24 14:02 Hydrocodone Bitartrate/Apap 5/325 Tablet PO Q4H PRN PRN Pain Score 4-10 Al Hydroxide/Mg Hydroxide 30 ml 11/29/24 01:49 Mag Hydrox/Al Hydrox/Simeth 30 Ml Udc PO Q6H PRN PRN Gastric Burning Albuterol Sulfate 2.5 mg 11/29/24 01:49 Albuterol 2.5 Mg/3 Ml Vial.Neb. INHALATION Q2H PRN PRN Dyspnea, wheezing Atorvastatin Calcium 10 mg 11/29/24 22:00 11/30/24 21:49 Atorvastatin Calcium 10 Mg Tablet PO 10 mg QHS BRYANNA Administration Clopidogrel Bisulfate 75 mg 11/29/24 10:00 11/29/24 09:07 Clopidogrel Bisulfate 75 Mg Tablet PO 75 mg DAILY BRYANNA Administration Duloxetine HCl 60 mg 11/29/24 10:00 12/01/24 09:03 Duloxetine Hcl 60 Mg Capsule PO Not Given DAILY BRYANNA Glucagon 1 mg 11/29/24 01:49 Glucagon 1 Mg/Ml Syringe IM X1 PRN HYPOGLYCEMIA Protocol Guaifenesin 20 ml 11/29/24 01:49 Guaifenesin 10 Ml Udc (200mg/10ml) PO Q4H PRN PRN COUGH Hydralazine HCl 10 mg 11/29/24 01:49 Hydralazine 20 Mg/Ml Vial IV Q4H PRN PRN SBP > 160 Protocol Dextrose 250 mls @ 0 mls/hr 11/29/24 01:49 Dextrose 10%-Water IV .Q0M PRN HYPOGLYCEMIA Protocol As Directed Pantoprazole Sodium 80 mg/ 100 mls @ 10 mls/hr 11/30/24 03:45 12/01/24 11:43 Sodium Chloride CONT INF 10 mls/hr Q10H BRYANNA Administration Insulin Human Lispro 0 unit 11/29/24 07:00 12/01/24 10:51 Insulin Lispro 100 Unit/Ml Insuln.Pen SC Not Given ACHS BRYANNA Protocol Isosorbide Mononitrate 30 mg 11/29/24 10:00 11/29/24 09:06 Isosorbide Mononitrate 30 Mg Tablet PO 30 mg DAILY BRYANNA Administration Protocol Lidocaine 2 patch 11/29/24 10:00 12/01/24 10:36 Lidocaine 5% Patch TOPICAL 2 patch DAILY [facility] Administration Protocol Lisinopril 10 mg 11/29/24 10:00 11/29/24 09:08 Lisinopril 10 Mg Tablet PO 10 mg DAILY [facility] Administration Protocol Loperamide HCl 2 mg 11/29/24 01:53 Loperamide 2 Mg Capsule PO Q6H PRN PRN Diarrhea Melatonin 3 mg 11/29/24 01:49 11/29/24 22:59 Melatonin 3 Mg Tablet PO 3 mg QHS PRN PRN Administration INSOMNIA Ondansetron HCl 4 mg 11/29/24 01:49 Ondansetron 4 Mg/2 Ml Vial IV Q8H PRN PRN NAUSEA/VOMITING Prochlorperazine Edisylate 5 mg 11/29/24 01:49 Prochlorperazine 10 Mg/2 Ml Vial IV Q4H PRN PRN Breakthrough nausea/vomiting Rivaroxaban 15 mg 11/29/24 10:00 11/29/24 09:06 Rivaroxaban 15 Mg Tablet PO 15 mg DAILY BRYANNA Administration Senna/Docusate Sodium 2 tablet 11/29/24 01:49 Senna/Docusate Sodium 1 Tablet PO BID PRN PRN Constipation Sodium Chloride 10 - 40 ml 11/29/24 00:10 11/30/24 04:14 0.9% Saline Lock 10 Ml Syringe IV 10 ml UD PRN Administration SALINE FLUSH Tamsulosin HCl 0.4 mg 11/29/24 10:00 12/01/24 09:03 Tamsulosin Hcl 0.4 Mg Capsule PO Not Given DAILY BRYANNA PFSH Medical History Sleep apnea CAD (coronary artery disease) Depression IBS (irritable bowel syndrome) Stage 3b chronic kidney disease (CKD) Anticoagulated Diabetes Hx pulmonary embolism HTN (hypertension) Factor V deficiency Current use of detention anticoagulation Hyperlipidemia Medical History no medical history Home Medications ?Medication ?Instructions ?Recorded ?Last Taken ?Type duloxetine 60 mg capsule,delayed 60 mg PO DAILY depression 01/21/16 11/25/24 10:00 History release lisinopril 10 mg tablet 10 mg PO DAILY blood pressure 01/21/16 12/10/22 History Held on 12/13/22. Instructions: Until blood pressure is 130/80 or higher clopidogrel 75 mg tablet 75 mg PO DAILY blood thinner 12/11/22 11/25/24 10:00 History eluxadoline 100 mg tablet (Viberzi) 200 mg PO DAILY stomach 12/11/22 11/25/24 10:00 History isosorbide mononitrate 30 mg 30 mg PO DAILY heart 12/11/22 12/10/22 History tablet,extended release 24 hr Held on 12/13/22. Instructions: Until blood pressure is 130/80 or higher loperamide 2 mg capsule 2 mg PO Q6H PRN Diarrhea 12/11/22 Unknown History omega-3 fatty acids 1,000 mg 1,000 mg PO DAILY supplement 12/11/22 11/25/24 10:00 History capsule rivaroxaban 15 mg tablet (Xarelto) 15 mg PO BIDCM blood thinner 12/11/22 11/25/24 10:00 History rosuvastatin 5 mg tablet 5 mg PO DAILY CHOLESTEROL 12/11/22 11/25/24 10:00 History saxagliptin 2.5 mg tablet 2.5 mg PO DAILY blood sugars 12/11/22 11/25/24 10:00 History tamsulosin 0.4 mg capsule 0.4 mg PO DAILY retention 11/27/24 11/25/24 10:00 History ketoconazole 2 % topical cream 1 applic topical BID PRN exczema 11/28/24 Unknown History linagliptin 5 mg tablet (Tradjenta) 5 mg PO DAILY glucose 11/28/24 11/25/24 10:00 History Allergy/AdvReac Type Severity Reaction Status Date / Time simvastatin AdvReac Other Verified 11/28/24 20:03 Family History Mother Heart disease Hypertension Heart failure Father Heart disease Hypertension Family History no significant family his Surgical History Hx of abdominal surgery Status post cholecystectomy S/P nasal surgery Stented coronary artery Surgical History no surgical history Social History household members: none Smoking Status: Former smoker alcohol intake: never substance use type: does not use Review of Systems (Anesthesia) ROS Narrative System reviewed and no additional complaints, except as documented.
--- NOTE | 2024-12-01 16:01 | CHAPLAIN ---
Type of Pastoral Visit _x__ Initial Visit ___ Follow-up Visit ___ On-call Visit ___ General Patient Visit ___ Spiritual Assessment ___ Family Conference ___ Bereavement ___ Rapid Response ___ Code Blue ___ Other (describe below) Pastoral Care Referral From _x__ Patient ___ Family ___ Nurse ___ Physician ___ Assistant Sales Center Manager ___ Roofing Subcontractor ___ Other (describe below) Sacrament/Intervention ___ Active listening ___ Anointing ___ Amish ___ Bereavement ___ Communion ___ Dana exploration ___ ___ Life review ___ Prayer ___ Reconciliation ___ Sacrament of Sick _x__ Supportive presence ___ Wedding ___ Other (describe below) Pastoral Comments introduced self and role to this patient who had just hung up the phone after being awakened from a nap; offered presence and prayer; pt states that his thermostat machine tender had been in today to pray with him; at this time the staff came to take pt for his procedure; offer of support given as needed and when best;
--- NOTE | 2024-12-01 16:39 | PN_ITS ---
Progress Note Patient has been n.p.o. waiting for upper endoscopy. Physical Exam Const alert, oriented x3, no apparent distress and healthy appearing General Appearance: cooperative GI normal to inspection, nondistended, normoactive bowel sounds, soft to palpation, non-tender and non-distended Percussion: normal to percussion Rectal Exam: deferred Assessment & Plan Assessment/Plan (1) Chronic anticoagulation: (2) GI bleed: PLAN: 84-year-old with history of factor V deficiency and history of pulmonary embolism on chronic anticoagulation also history of CAD on antiplatelet therapy who had multiple episodes of nausea vomiting and hematemesis. Plan is to evaluate his upper GI tract for upper GI bleed. Differential diagnosis does i nclude Reina-Lawson tear, peptic ulcer disease, angiodysplasia, neoplasia. He was explained alternatives, risk and benefits include almost any bleeding, infection, sepsis, perforation, need for charge and . Have an ASA of 3. PLAN: Plan Recommendations after he undergoes upper endoscopy. Visit Charges Inpatient E&M: 56904 Subs Hosp L2
--- NOTE | 2024-12-01 17:03 | OP.CCLET_ITS ---
12/01/2024 Dane Cobb MD Re : Upper GI endoscopy procedure for Rajat Ritchie Dear Dr. Cobb This procedure was performed on Sunday, December 01, 2024. My impressions and recommendations are as follows: Impressions : - Moderately severe esophagitis with bleeding. Treated with a heater probe. - Medium-sized hiatal hernia. - No gross lesions in the second portion of the duodenum. - No specimens collected. Recommendations : - [facility]. - Full liquid diet today. - Continue present medications. My findings are described in the full procedure note, which is enclosed. If I can be of further assistance, please feel free to contact me at . Sincerely, Jr Marie, 12/01/2024 5:02:45 PM This report has been signed electronically.
--- NOTE | 2024-12-01 17:03 | OP.EGD_ITS ---
Patient Name: Rajat Ritchie Procedure Date: 12/01/2024 4:37 PM Date of : 1940 Age: 84 Procedure: Upper GI endoscopy Indications: Coffee-ground emesis, Hematemesis Providers: Jr Marie DO Medicines: Monitored Anesthesia Care Patient Profile: This is an 84 year old male. Refer to note in patient chart for documentation of history and physical. Patient has symptoms of acute vomiting. Complications: No immediate complications. Procedure: Pre-Anesthesia Assessment: - Prior to the procedure, a History and Physical was performed, and patient medications and allergies were reviewed. The patient is competent. The risks and benefits of the procedure and the sedation options and risks were discussed with the patient. All questions were answered and informed consent was obtained. Patient identification and proposed procedure were verified by the physician in the pre-procedure area. Mental Status Examination: alert and oriented. Airway Examination: normal oropharyngeal airway and neck mobility. Respiratory Examination: clear to auscultation. CV Examination: normal. Prophylactic Antibiotics: The patient does not require prophylactic antibiotics. Prior Anticoagulants: The patient has taken no anticoagulant or antiplatelet agents except for NSAID medication. ASA Grade Assessment: II - A patient with mild systemic disease. After reviewing the risks and benefits, the patient was deemed in satisfactory condition to undergo the procedure. The anesthesia plan was to use monitored anesthesia care (MAC). Immediately prior to administration of medications, the patient was re-assessed for adequacy to receive sedatives. The heart rate, respiratory rate, oxygen saturations, blood pressure, adequacy of pulmonary ventilation, and response to care were monitored throughout the procedure. The physical status of the patient was re-assessed after the procedure. After obtaining informed consent, the endoscope was passed under direct vision. Throughout the procedure, the patient's blood pressure, pulse, and oxygen saturations were monitored continuously. The gastroscope was introduced through the mouth, and advanced to the second part of duodenum. The upper GI endoscopy was accomplished without difficulty. The patient tolerated the procedure well. Scope In: 4:53:11 PM Scope Out: 4:56:47 PM Total Procedure Duration Time 0 hours 3 minutes 36 seconds Findings: Moderately severe pill induced esophagitis with bleeding was found 25 to 29 cm from the incisors. Coagulation for hemostasis using heater probe was successful. Estimated blood loss was minimal. A medium-sized hiatal hernia was present. The exam of the stomach was otherwise normal. No gross lesions were noted in the second portion of the duodenum. Impression: - Moderately severe esophagitis with bleeding. Treated with a heater probe. - Medium-sized hiatal hernia. - No gross lesions in the second portion of the duodenum. - No specimens collected. Recommendation: - Return patient to [facility] for [facility] care. - Full liquid diet today. - Continue present medications. Procedure Code(s): --- Professional --- 05989, Esophagogastroduodenoscopy, flexible, transoral; with control of bleeding, any method CPT copyright 2021 [employer]. All rights reserved. The codes documented in this report are preliminary and upon professional fee coder review may be revised to meet current compliance requirements. Jr Marie DO 12/01/2024 5:02:45 PM This report has been signed electronically. Number of Addenda: 0 Note Initiated On: 12/01/2024 4:37 PM
--- NOTE | 2024-12-01 17:07 | PCM.PN.BLA ---
Progress Note Follow-up in office: [7 days] Okay to restart [Xarelto] on [12/04/2024] Okay to restart [Plavix] on [12/04/2024] New GI related medications for discharge: [Protonix 40 mg p.o. twice daily and Carafate 1 g 3 times a day- both for 8 weeks] Follow-up procedures needed: [EGD in 6-8 weeks] Visit Charges Inpatient E&M: 72045 [facility] L1
--- NOTE | 2024-12-01 17:08 | PCM.POST.ANE ---
Anesthesia: Postop Eval I Current Vital Signs Temperature: 97.8 F Pulse Rate: 90 Blood Pressure: 130/73 Respiratory Rate: 16 Pulse Ox: 100 Oxygen Delivery Method: Simple Mask Oxygen Flow Rate (L/min): 6 Assessment Airway patent: Yes Spontaneous unlabored respirations: Yes Mental status: Asleep nausea: No Vomiting: No Anesthesia Complication: No Fluid Hydration Crystalloid volume administer (ml): 30 Total IV fluid infused: 30 Progress Note Anesthesia document: Postop Eval 1 completed: Yes
--- NOTE | 2024-12-01 17:13 | PCM.POSTANE2 ---
Anesthesia Postop Eval I Sum Postop Eval Completion status Anesthesia document: Postop Eval 1 completed: Yes Anesthesia Postop Eval I Summary Anesthesia Postop Eval I Summary: Anesthesia Postop Eval I: Assessment Summary Airway patent Yes 12/01/24 17:09 [email or web address] Spontaneous unlabored Yes 12/01/24 17:09 [email or web address] respirations Mental status Asleep 12/01/24 17:09 [email or web address] nausea No 12/01/24 17:09 [email or web address] Vomiting No 12/01/24 17:09 [email or web address] Anesthesia Postop Eval I: Fluid Summary Crystalloid volume administer 30 12/01/24 17:09 [email or web address] (ml) Colloids volume administered ( ml) Blood Product volume administered (ml) Total IV fluid infused 30 12/01/24 17:09 [email or web address] Anesthesia Postop Eval I: Summary Notes Anesthesia Complication No 12/01/24 17:09 [email or web address] Anesthesia Complication Comment: Post-operative progress note Anesthesia: Postop Eval II Evaluation Mental status: Awake Pain Level: 0 nausea: No Vomiting: No
[2024-12-01 18:11] LABS: Bedside Glucose 119 mg/dL (74-106)
[2024-12-01] MEDS: Rivaroxaban 15 MG Tablet PO (18:20)
[2024-12-01] MEDS: Atorvastatin Calcium 10 MG Tablet PO (20:52)
--- NOTE | 2024-12-01 21:04 | PN.HOSP_ITS ---
Reason for Visit Reason for Visit: Diagnoses Gastrointestinal hemorrhage, unspecified (11/28/24) Pain, unspecified (11/28/24) Unspecified fracture of unspecified thoracic vertebra, initial encounter for closed fracture (11/28/24) Fracture of one rib, left side, initial encounter for closed fracture (11/28/24) technician terminal and repeater (current) use of anticoagulants (11/28/24) Subjective Subjective Patient was seen and examined today, he voices no complaints of any pain at this time, patient underwent an EGD today which showed distal esophagitis from a pill, I have elected to keep the patient off Xarelto and Plavix at this time. Objective Data Objective Data Vital Signs: Vital Signs Temp Pulse Resp BP Pulse Ox O2 Del Method O2 Flow Rate 98.2 F 78 20 H 133/64 H 96 High Flow 4 12/01/24 20:53 12/01/24 20:53 12/01/24 20:53 12/01/24 20:53 12/01/24 20:53 12/01/24 20:54 12/01/24 20:54 Oxygen Flow Rate (L/min) 4 Oxygen Delivery Method High Flow Weight: 106.9 kg Body Mass Index (BMI) 35.7 Intake & Output: Intake and Output for Last 24 Hours 11/29/24 11/30/24 12/01/24 23:59 23:59 23:59 Intake Total 2650 / 2650 1533.83 / 1533.83 197.17 / 197.17 Output Total 650 / 650 Balance 2650 / 2650 1533.83 / 1533.83 -452.83 / -452.83 Lab / Micro Data 12/01/24 05:34 12/01/24 05:34 Labs: Laboratory Results - last 24 hr 11/30/24 22:04: POC Glucose 101 12/01/24 05:34: WBC 10.3, RBC 4.29 L, Hgb 13.2, Hct 38.6 L, MCV 90.0, MCH 30.8, MCHC 34.2, RDW Std Deviation 41.6, RDW Coeff of Jarad 12.5, Plt Count 208, MPV 11.1, PT 14.5, INR 1.1, APTT 28.3, Sodium 129 L, Potassium 3.7, Chloride 97 L, Carbon Dioxide 24.0, Anion Gap 8, BUN 41 H, Creatinine 2.17 H, Estim Creat Clear Calc 29.43, Est GFR (MDRD) Af Amer 37 L, Est GFR (MDRD) Non-Af 31 L, BUN/Creatinine Ratio 18.9, Glucose 134 H, Hemoglobin A1c 6.2 H, Calcium 8.5, T otal Bilirubin 1.30 H, AST 49 H, ALT 65 H, Alkaline Phosphatase 133 H, Total Protein 6.5, Albumin 2.9 L, Globulin 3.6, Albumin/Globulin Ratio 0.8 L 12/01/24 07:21: POC Glucose 131 H 12/01/24 10:39: POC Glucose 125 H 12/01/24 17:52: POC Glucose 119 H Micro: Microbiology 11/30/24 11:05 Interface Orders Stool Occult Blood (JJ) - Final 11/30/24 03:45 Vomitus Gastric Occult Blood - Final Radiography Diagnostic Testing: Radiology Impression Chest X-Ray 12/01/24 05:55 IMPRESSION: Small left pleural effusion and mild bibasilar atelectatic changes. Reading Location: [facility] Physical Exam Const alert and no apparent distress General Appearance: cooperative, well kempt and well developed Orientation / Consciousness: awake, oriented to person and oriented to place HEENT normocephalic, head/scalp atraumatic and moist oral mucous membranes Eyes PERRL, EOMs intact bilaterally and conjunctivae normal Neck supple, no JVD, thyroid normal and no carotid bruits General: trachea midline Resp normal respiratory effort, no retractions, no use of accessory muscles and clear to auscultation bilaterally Auscultation: Negative for rales, rhonchi or wheezes Cardio regular rate, regular rhythm, S1 normal heart sound, S2 normal heart sound, no murmurs, no rub and no gallops GI normal to inspection, nondistended, normoactive bowel sounds, soft to palpation, non-tender and non-distended Extremity no clubbing, cyanosis or edema Skin no rashes or lesions noted General Skin Exam: no breakdown Neuro CN's II-XII intact bilaterally, no focal motor deficits and no sensory deficits noted Sensorium / Orientation: awake, alert, oriented to person and oriented to place Speech: speech normal Psych affect normal Assessment & Plan Assessment/Plan (1) Fracture of transverse process of thoracic vertebra: PLAN: Plan 1. Acute debility secondary to multiple rib fractures and thoracic vertebral fractures-PT and OT will continue to see the patient, he will [facility] for [facility]-term rehab services, pain medications will be administered as needed #2 esophagitis-patient will be continued on a PPI, anticoagulants will be held for now #3 type 2 diabetes-patient's blood sugars will be monitored, sliding scale insulin will be administered as needed #4 chronic kidney disease stage IIIb-secondary to type 2 diabetes, BMP will be monitored as needed #5 chronic depression-patient is currently on Cymbalta #6 coronary artery disease-this appears to be stable at this time #7 essential hypertension-patient will remain on his present medications Total clinical time spent by myself addressing the patient's medical issues, reviewing all of his data, and collaborating with patient's care team: 35 minutes Charges/Coding Visit Charges Inpatient E&M: 80305 Subs Hosp L2
[2024-12-01 22:09] LABS: Bedside Glucose 143 mg/dL (74-106)
[2024-12-01] MEDS: Acetaminophen 325 MG Tablet 650 MG PO (23:53)
[2024-12-01] MEDS: MELATONIN 3 MG TABLET PO (23:54)
[2024-12-02 03:06] VITALS: BP 123/55; PULSE 77; RESP 22; TEMP 36.5; O2SAT 94
[2024-12-02 06:00] VITALS: BMI 33.8
[2024-12-02] MEDS: Pantoprazole Sodium 80 MG in 0.9% Normal Saline (100mL Bag) 80 ML 10 MG CONT INF (06:30)
[2024-12-02] MEDS: Sucralfate 1 GM Tablet PO ×3 (06:34→15:38)
[2024-12-02 06:38] VITALS: BP 155/79; PULSE 85; RESP 22; TEMP 36.1; O2SAT 98
[2024-12-02 07:34] VITALS: O2SAT 93
[2024-12-02 07:45] LABS: Bedside Glucose 109 mg/dL (74-106)
[2024-12-02 07:50] VITALS: BP 160/75; PULSE 80; RESP 20; TEMP 37.2; O2SAT 98
[2024-12-02] MEDS: DULoxetine Hcl 60 MG Capsule PO (11:09)
[2024-12-02] MEDS: Lidocaine 5% Patch 2 PATCH TOPICAL (11:09)
[2024-12-02] MEDS: Tamsulosin HCl 0.4 MG Capsule PO (11:09)
[2024-12-02 11:27] LABS: Bedside Glucose 142 mg/dL (74-106)
--- NOTE | 2024-12-02 13:39 | CASEMGMT ---
[facility] has accepted and will submit for precert. SW updated. Marielos Bennett DC Planning Asst.
--- NOTE | 2024-12-02 13:45 | CASEMGMT ---
Social Work- received notice that pt accepted to [facility] and precert started. Pt updated. Plan: [facility]; pend precert ROSE Underwood
[2024-12-02 14:55] VITALS: BP 125/60; PULSE 89; RESP 18; TEMP 36.4; O2SAT 95
[2024-12-02] MEDS: Pantoprazole Sodium 40 MG in 0.9% Normal Saline (100mL MB+) 100 ML 330 MG IV ×2 (14:59→22:30)
[2024-12-02] MEDS: Acetaminophen 325 MG Tablet 650 MG PO ×2 (15:02→22:10)
[2024-12-02] MEDS: 0.9% Saline Lock 10 ML Syringe IV ×3 (15:02→22:31)
[2024-12-02] MEDS: Insulin Lispro 100 UNIT/ML INSULN.PEN SC (16:54)
[2024-12-02 17:06] LABS: Bedside Glucose 155 mg/dL (74-106)
--- NOTE | 2024-12-02 20:16 | PN.HOSP_ITS ---
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 Patient did not do well with PT today. Patient remains on oxygen at 4 L via nasal cannula. Objective Data Objective Data Vital Signs: Vital Signs Temp Pulse Resp BP Pulse Ox O2 Del Method O2 Flow Rate 97.5 F L 89 18 125/60 H 95 Nasal Cannula 4 12/02/24 14:55 12/02/24 14:55 12/02/24 14:55 12/02/24 14:55 12/02/24 14:55 12/02/24 14:55 12/02/24 09:53 Oxygen Flow Rate (L/min) 4 Oxygen Delivery Method Nasal Cannula Weight: 101.4 kg Body Mass Index (BMI) 33.8 Intake & Output: Intake and Output for Last 24 Hours 11/30/24 12/01/24 12/02/24 23:59 23:59 23:59 Intake Total 1533.83 / 1533.83 297.17 / 297.17 271.50 / 271.50 Output Total 650 / 650 1200 / 1200 Balance 1533.83 / 1533.83 -352.83 / -352.83 -928.50 / -928.50 Lab / Micro Data 12/01/24 05:34 12/01/24 05:34 Labs: Laboratory Results - last 24 hr 12/01/24 21:52: POC Glucose 143 H 12/02/24 06:35: POC Glucose 109 H 12/02/24 11:10: POC Glucose 142 H 12/02/24 16:49: POC Glucose 155 H Micro: Microbiology 11/30/24 11:05 Interface Orders Stool Occult Blood (JJ) - Final 11/30/24 03:45 Vomitus Gastric Occult Blood - Final Physical Exam Narrative alert and no apparent distress General Appearance: cooperative, well kempt and well developed Orientation / Consciousness: awake, oriented to person and oriented to place HEENT normocephalic, head/scalp atraumatic and moist oral mucous membranes Eyes PERRL, EOMs intact bilaterally and conjunctivae normal Neck supple, no JVD, thyroid normal and no carotid bruits General: trachea midline Resp normal respiratory effort, no retractions, no use of accessory muscles and clear to auscultation bilaterally Auscultation: Negative for rales, rhonchi or wheezes Cardio regular rate, regular rhythm, S1 normal heart sound, S2 normal heart sound, no murmurs, no rub and no gallops GI normal to inspection, nondistended, normoactive bowel sounds, soft to palpation, non-tender and non-distended Extremity no clubbing, cyanosis or edema Skin no rashes or lesions noted General Skin Exam: no breakdown Neuro CN's II-XII intact bilaterally, no focal motor deficits and no sensory deficits noted Sensorium / Orientation: awake, alert, oriented to person and oriented to place Speech: speech normal Psych affect normal Assessment & Plan Assessment/Plan (1) Left rib fracture: (2) Fracture of transverse process of thoracic vertebra: PLAN: Plan 1. Acute debility secondary to multiple rib fractures and thoracic vertebral fractures-PT and OT will continue to see the patient, he will need placement in a detention facility for short-term rehab services, pain medications will be administered as needed #2 esophagitis-patient will be continued on a PPI, anticoagulants will be held for now #3 type 2 diabetes-patient's blood sugars will be monitored, sliding scale insulin will be administered as needed #4 chronic kidney disease stage IIIb-secondary to type 2 diabetes, BMP will be monitored as needed #5 chronic depression-patient is currently on Cymbalta #6 coronary artery disease-this appears to be stable at this time #7 essential hypertension-patient will remain on his present medications Total clinical time spent by myself addressing the patient's medical issues, reviewing all of his data, and collaborating with patient's care team: 35 minutes Charges/Coding Visit Charges Inpatient E&M: 31286 Subs Hosp L2
[2024-12-02 21:49] VITALS: BP 136/58; PULSE 71; RESP 22; TEMP 36.9; O2SAT 95
[2024-12-02] MEDS: Atorvastatin Calcium 10 MG Tablet PO (22:01)
[2024-12-02] MEDS: Menthol/Lanolin/Calamine/Znox 113 GM Tube 1 APPLIC TOPICAL (22:01)
[2024-12-02 23:04] LABS: Bedside Glucose 100 mg/dL (74-106)
[2024-12-03 02:14] VITALS: BP 138/66; PULSE 64; RESP 24; TEMP 36.5; O2SAT 96
[2024-12-03] MEDS: 0.9% Saline Lock 10 ML Syringe IV ×4 (02:20→23:39)
[2024-12-03 06:00] VITALS: BMI 34.4
[2024-12-03 06:23] VITALS: BP 126/52; PULSE 73; RESP 20; TEMP 36.4; O2SAT 95
[2024-12-03] MEDS: Sucralfate 1 GM Tablet PO ×3 (06:30→16:12)
[2024-12-03 07:10] LABS: Bedside Glucose 104 mg/dL (74-106)
[2024-12-03 07:51] VITALS: BP 126/61; PULSE 70; RESP 14; TEMP 36.4
[2024-12-03 08:56] VITALS: O2SAT 94
[2024-12-03] MEDS: Acetaminophen 325 MG Tablet 650 MG PO ×2 (09:22→22:56)
[2024-12-03] MEDS: Tamsulosin HCl 0.4 MG Capsule PO (09:22)
[2024-12-03] MEDS: DULoxetine Hcl 60 MG Capsule PO (09:22)
[2024-12-03] MEDS: Lidocaine 5% Patch 2 PATCH TOPICAL (09:23)
[2024-12-03] MEDS: Menthol/Lanolin/Calamine/Znox 113 GM Tube 1 APPLIC TOPICAL ×2 (09:23→23:00)
[2024-12-03] MEDS: Pantoprazole Sodium 40 MG in 0.9% Normal Saline (100mL MB+) 100 ML 330 MG IV ×2 (09:25→22:49)
[2024-12-03] MEDS: Insulin Lispro 100 UNIT/ML INSULN.PEN SC (11:02)
[2024-12-03 11:26] LABS: Bedside Glucose 156 mg/dL (74-106)
--- NOTE | 2024-12-03 13:48 | CASEMGMT ---
[facility] has obtained auth to admit, however it starts tomorrow, 12/04/24. Call placed to [facility] who will look into why effective date is not day of and if possible, making it effective today. SW updated. Marielos Bennett DC Planning Asst.
[2024-12-03 14:18] VITALS: BP 126/85; PULSE 71; RESP 16; TEMP 36.3
--- NOTE | 2024-12-03 16:09 | NURSING ---
All documentation by nursing care attendant Philomena Zafar reviewed by skilled nursing case manager Neha Hallman BSN, RN.
[2024-12-03 16:39] LABS: Bedside Glucose 132 mg/dL (74-106)
--- NOTE | 2024-12-03 18:54 | PCM.PN.HOSP ---
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 We are still awaiting approval for the patient to go to an extended care facility for short-term rehab services Objective Data Objective Data Vital Signs: Vital Signs Temp Pulse Resp BP Pulse Ox O2 Del Method O2 Flow Rate 97.3 F L 71 16 126/85 H 94 Nasal Cannula 2 12/03/24 14:18 12/03/24 14:18 12/03/24 14:18 12/03/24 14:18 12/03/24 08:56 12/03/24 14:18 12/03/24 14:32 Oxygen Flow Rate (L/min) 2 Oxygen Delivery Method Nasal Cannula Weight: 103.1 kg Body Mass Index (BMI) 34.4 Intake & Output: Intake and Output for Last 24 Hours 12/01/24 12/02/24 12/03/24 23:59 23:59 23:59 Intake Total 297.17 / 297.17 381.50 / 381.50 110 / 110 Output Total 650 / 650 1999 Balance -352.83 / -352.83 -1618.50 / -1618.50 -1890 / -1890 Lab / Micro Data 12/01/24 05:34 12/01/24 05:34 Labs: Laboratory Results - last 24 hr 12/02/24 21:56: POC Glucose 100 12/03/24 06:29: POC Glucose 104 12/03/24 11:00: POC Glucose 156 H 12/03/24 16:13: POC Glucose 132 H Micro: Microbiology 11/30/24 11:05 Interface Orders Stool Occult Blood (JJ) - Final 11/30/24 03:45 Vomitus Gastric Occult Blood - Final Physical Exam Narrative alert and no apparent distress General Appearance: cooperative, well kempt and well developed Orientation / Consciousness: awake, oriented to person and oriented to place HEENT normocephalic, head/scalp atraumatic and moist oral mucous membranes Eyes PERRL, EOMs intact bilaterally and conjunctivae normal Neck supple, no JVD, thyroid normal and no carotid bruits General: trachea midline Resp normal respiratory effort, no retractions, no use of accessory muscles and clear to auscultation bilaterally Auscultation: Negative for rales, rhonchi or wheezes Cardio regular rate, regular rhythm, S1 normal heart sound, S2 normal heart sound, no murmurs, no rub and no gallops GI normal to inspection, nondistended, normoactive bowel sounds, soft to palpation, non-tender and non-distended Extremity no clubbing, cyanosis or edema Skin no rashes or lesions noted General Skin Exam: no breakdown Neuro CN's II-XII intact bilaterally, no focal motor deficits and no sensory deficits noted Sensorium / Orientation: awake, alert, oriented to person and oriented to place Speech: speech normal Psych affect normal Assessment & Plan Assessment/Plan (1) Fracture of transverse process of thoracic vertebra: (2) Left rib fracture: PLAN: Plan 1. Acute debility secondary to multiple rib fractures and thoracic vertebral fractures-PT and OT will continue to see the patient, he will need placement in a [facility] facility for short-term rehab services, pain medications will be administered as needed #2 esophagitis-patient will be continued on a PPI, anticoagulants will be held for now, when patient goes to the extended care facility, his anticoagulants will be resumed #3 type 2 diabetes-patient's blood sugars will be monitored, sliding scale insulin will be administered as needed #4 chronic kidney disease stage IIIb-secondary to type 2 diabetes, BMP will be monitored as needed #5 chronic depression-patient is currently on Cymbalta #6 coronary artery disease-this appears to be stable at this time #7 essential hypertension-patient will remain on his present medications Total clinical time spent by myself addressing the patient's medical issues, reviewing all of his data, and collaborating with patient's care team: 35 minutes Charges/Coding Visit Charges Inpatient E&M: 31602 Subs Hosp L2
[2024-12-03 22:43] VITALS: BP 147/72; PULSE 72; RESP 22; TEMP 36.3; O2SAT 95
[2024-12-03] MEDS: Atorvastatin Calcium 10 MG Tablet PO (22:56)
[2024-12-03] MEDS: MELATONIN 3 MG TABLET PO (22:57)
[2024-12-03 23:44] LABS: Bedside Glucose 129 mg/dL (74-106)
[2024-12-04 02:12] VITALS: BP 139/63; PULSE 71; RESP 20; TEMP 36.6; O2SAT 93
[2024-12-04 05:46] VITALS: BMI 34.4
[2024-12-04 05:52] VITALS: BP 133/61; PULSE 71; RESP 20; TEMP 36.4; O2SAT 95
[2024-12-04] MEDS: Sucralfate 1 GM Tablet PO ×2 (06:01→11:35)
[2024-12-04 06:21] LABS: Bedside Glucose 125 mg/dL (74-106)
[2024-12-04 08:22] VITALS: BP 132/67; PULSE 72; RESP 16; TEMP 36.6; O2SAT 96
[2024-12-04 09:01] VITALS: BP 138/64; PULSE 70; RESP 20; TEMP 36.1; O2SAT 92
--- NOTE | 2024-12-04 09:38 | TREXTCAR_ITS ---
Diet Diet Order/Speech Therapy: 12/02/24 17:59 Carb [Diet: Carbohydrate Controlled] Diet Comments: 1800 calories Routine Orders/Code Status Routine Lab Work: BMP (in two days) Code Status: DNRCC-A (no intubation) DC O2, CPAP, BIPAP needs Home O2 Discharge instructions: Yes Type of respiratory needs?: Oxygen Oxygen frequency: Continuous Continuous oxygen liters per minute: 2 L Wound(s) top of head: Wound Type: Abrasion Therapies Weight Bearing: Full weight bearing Physical Therapy: Eval and Treat Occupational Therapy: Eval and Treat Problem/Diagnosis (1) Fracture of transverse process of thoracic vertebra: Status: Acute Code(s): S22.009A - Unspecified fracture of unspecified thoracic vertebra, initial encounter for closed fracture (2) Left rib fracture: Status: Acute Code(s): S22.32XA - Fracture of one rib, left side, initial encounter for closed fracture Plan 1. Acute debility secondary to multiple rib fractures and thoracic vertebral fractures-PT and OT will continue to see the patient, he will need [facility] in a [facility] facility for short-term rehab services, pain medications will be administered as needed #2 esophagitis-patient will be continued on a PPI, anticoagulants will be held for now, when patient goes to the extended care facility, his anticoagulants will be resumed #3 type 2 diabetes-patient's blood sugars will be monitored, sliding scale insulin will be administered as needed #4 chronic kidney disease stage IIIb-secondary to type 2 diabetes, BMP will be monitored as needed #5 chronic depression-patient is currently on Cymbalta #6 coronary artery disease-this appears to be stable at this time #7 essential hypertension-patient will remain on his present medications Total clinical time spent by myself addressing the patient's medical issues, reviewing all of his data, and collaborating with patient's care team: 35 minutes Allergies/Procedures Done in Hospital Allergies simvastatin Adverse Reaction (Verified 11/28/24 20:03) Other MUSCLE PAIN Procedures: EGD Type of Care/Length of Stay Estimated LOS: Convalescent Care Less Than 30 days Type of Care Needed: Skilled Rehab Potential: Good Prognosis: Good Additional Orders/Day of Discharge H&P will serve as current which was dated: 11/28/24 Day of Discharge: 12/04/24 Discharge Plan Admission Admit Date/Time: 11/28/24 23:45 Primary Reason for Your Visit: Acute debility, esophagitis Attending Provider: Christo Saleem Primary Care Provider: Dane Cobb Consulting Providers: Nanda Kaur; Friend,Jr; Mik Cook Discharge Orders/Prescriptions Prescriptions: New acetaminophen 325 mg Tablet 650 mg PO Q4H PRN PRN (Reason: Fever, pain 1-10/10) Qty: 0 0RF hydrocodone-acetaminophen 5-325 mg Tablet 1 tab PO Q4H PRN PRN (Reason: Pain Score 4-10) 2 Days Qty: 7 0RF clopidogrel 75 mg Tablet 75 mg PO DAILY Qty: 0 0RF insulin lispro [Humalog KwikPen Insulin] 100 unit/mL Insulin Pen See Protocol subcut ACHS Qty: 0 0RF Protocol: 3. Sliding Scale Insulin Med Dosing Condition: 150-189 mg/dl = 1 unit Condition: 190-229 mg/dl = 2 units Condition: 230-269 mg/dl = 3 units Condition: 270-309 mg/dl = 4 units Condition: 310-349 mg/dl = 5 units Condition: 350-399 mg/dl = 6 units Condition: 400-449 mg/dl = 7 units Condition: Greater than 449 call physician Protocol Text: - Use for Total Daily Dose of Insulin 37-55 units - Obsese, infected, or steroid patients MEDIUM DOSING ALGORITHIM Xarelto 15 mg Tablet 15 mg PO BIDCM Qty: 0 0RF Rx Instructions: 15 mg p.o. twice daily x 21 days-start on 12/04/2024, then 20 mg daily thereafter sucralfate 1 gram Tablet 1 g PO TIDAC Qty: 0 0RF Rx Instructions: Use for 1 month then discontinue sennosides-docusate sodium [Stimulant Laxative Plus] 8.6-50 mg Tablet 2 tab PO BID PRN PRN (Reason: Constipation) Qty: 0 0RF Continued lisinopril 10 MG tablet 10 mg PO DAILY duloxetine 60 MG capsule 60 mg PO DAILY isosorbide mononitrate 30 mg Tablet Extended Release 24 Hr 30 mg PO DAILY saxagliptin 2.5 mg Tablet 2.5 mg PO DAILY loperamide 2 mg Capsule 2 mg PO Q6H PRN (Reason: Diarrhea) rosuvastatin 5 mg tablet 5 mg PO DAILY tamsulosin 0.4 mg capsule 0.4 mg PO DAILY Tradjenta 5 mg tablet 5 mg PO DAILY Discontinued Viberzi 100 mg Tablet 200 mg PO DAILY omega-3 fatty acids 1,000 mg Capsule 1,000 mg PO DAILY clopidogrel 75 mg tablet 75 mg PO DAILY Patient Comments: TAKE 8 TABLETS BY MOUTH ONCE ON DAY 1 FOR FIRST DOSE (LOADING DOSE), THEN 1 TABLET DAILY THEREAFTER Xarelto 15 MG tablet 15 mg PO BIDCM ketoconazole 2 % cream 1 applic topical BID PRN (Reason: exczema) Referrals / Follow Up: Dane Cobb MD [Primary Care Provider] - Disposition Disposition (needs filled in before D/C Order can be placed): Intermediate Facility
[2024-12-04] MEDS: Pantoprazole Sodium 40 MG in 0.9% Normal Saline (100mL MB+) 100 ML 330 MG IV (09:54)
--- NOTE | 2024-12-04 09:55 | PCM.DC.SUM ---
Providers Date of Admission: 11/28/24 Date of Discharge: 12/04/24 Primary Care Physician: Dr. Dane Cobb MD Consultations 11/30/24 06:23 Consult: Gastroenterology Routine Consulting Provider: Jr Marie Reason for Consult: GI bleed EMERGENT Consult: No MD Notified: Yes Date Notified: 11/30/24 Time Notified: 06:23 Method of Notification: Text Reason For Visit: INTRACTABLE PAIN, S/P FALL Diagnosis Discharge Diagnosis (1) Fracture of transverse process of thoracic vertebra: Status: Inactive Code(s): S22.009A - Unspecified fracture of unspecified thoracic vertebra, initial encounter for closed fracture (2) Left rib fracture: Status: Inactive Code(s): S22.32XA - Fracture of one rib, left side, initial encounter for closed fracture Plan 1. Acute debility secondary to multiple rib fractures and thoracic vertebral fractures-PT and OT will continue to see the patient, he will need placement in a [facility] facility for short-term rehab services, pain medications will be administered as needed #2 esophagitis with acute hemorrhage causing acute anemia-patient will be continued on a PPI, anticoagulants will be held for now, when patient goes to the extended care facility, his anticoagulants will be resumed #3 type 2 diabetes-patient's blood sugars will be monitored, sliding scale insulin will be administered as needed #4 chronic kidney disease stage IIIb-secondary to type 2 diabetes, BMP will be monitored as needed #5 chronic depression-patient is currently on Cymbalta #6 coronary artery disease-this appears to be stable at this time #7 essential hypertension-patient will remain on his present medications Total clinical time spent by myself addressing the patient's medical issues, reviewing all of his data, and collaborating with patient's care team: 35 minutes Medications at Discharge Home Medications duloxetine 60 mg capsule,delayed release 60 mg PO DAILY depression 01/21/16 lisinopril 10 mg tablet 10 mg PO DAILY blood pressure 01/21/16 isosorbide mononitrate 30 mg tablet,extended release 24 hr 30 mg PO DAILY heart 12/11/22 loperamide 2 mg capsule 2 mg PO Q6H PRN Diarrhea 12/11/22 rosuvastatin 5 mg tablet 5 mg PO DAILY CHOLESTEROL 12/11/22 saxagliptin 2.5 mg tablet 2.5 mg PO DAILY blood sugars 12/11/22 tamsulosin 0.4 mg capsule 0.4 mg PO DAILY retention 11/27/24 linagliptin 5 mg tablet (Tradjenta) 5 mg PO DAILY glucose 11/28/24 acetaminophen 325 mg tablet 650 mg (2 x 325 mg) PO Q4H PRN PRN Fever, pain 1-07/31 #0 tabs 12/04/24 clopidogrel 75 mg tablet 75 mg PO DAILY #0 tabs 12/04/24 hydrocodone-acetaminophen 5-325mg 5mg-325mg 1 tab PO Q4H PRN PRN Pain Score 4-10 2 days #7 tabs 12/04/24 insulin lispro 100 unit/mL subcutaneous pen (Humalog KwikPen (U-100) Insulin) See Protocol subcut ACHS #0 mL 12/04/24 rivaroxaban 15 mg tablet (Xarelto) 15 mg PO BIDCM #0 tabs 12/04/24 sennosides 8.6 mg-docusate sodium 50 mg tablet (Stimulant Laxative Plus) 2 tab PO BID PRN PRN Constipation #0 tabs 12/04/24 sucralfate 1 gram tablet 1 g PO TIDAC #0 tabs 12/04/24 Hospital Course Operations None Procedures EGD Summary of Care Provided Minutes Spent on Discharge: 31 Hospital Course: This 84-year-old white male was seen in the emergency room at [facility] after sustaining a fall several days earlier and subsequently sustained 2 rib fractures. He was discharged home with [facility], he stated he had severe pain in could not take the pain anymore so he came to the emergency room for evaluation again, he lives alone, he states the [facility] is not providing any relief of his pain. Labs performed included a CBC which was normal, chemistry profile was remarkable for creatinine 1.67 and a BUN of 22. Bilirubin was elevated at 1.5. Liver enzymes are elevated with AST of 108, ALT of 102, and alkaline phosphatase of 182. Patient was admitted to [place] [address] and seen in consultation by PT and OT, he required oxygen at 2 L/min at rest. During his hospitalization, his hemoglobin dropped and consultation was obtained from GI the patient underwent an EGD which showed moderately severe esophagitis with bleeding. Patient did not require blood transfusion, oxygen was unable to be weaned off. On 12/04/2024, patient was seen and examined: On examination he appeared in good health and spirits. Vital signs as documented. Skin warm and dry and without overt rashes. Neck without JVD, neck was supple, trachea midline, thyroid was normal. Lungs clear bilaterally, normal air movement was noted. Heart exam notable for regular rhythm, normal sounds and absence of murmurs, rubs or gallops. Abdomen unremarkable and without evidence of organomegaly, masses, or abdominal aortic enlargement. Bowel sounds are present, abdomen is not distended. Extremities nonedematous, no cyanosis was noted, no clubbing was noted. Neuro: Cranial nerves II through XII are grossly intact, no focal motor deficits were noted, sensation to light touch and pinprick intact, motor exam 5/5 throughout. Psych: Patient is alert and oriented x3, he does not appear anxious or depressed, he does not appear agitated. Patient appears stable for discharge to a local extended care facility for inpatient skilled services on 12/04/2024 Weight / BMI Weight Weight: 103.1 kg Body Mass Index (BMI) 34.4 ABG / Lab / Microbiology Data 12/01/24 05:34 12/01/24 05:34 Laboratory: Laboratory Results - last 24 hr 12/03/24 11:00: POC Glucose 156 H 12/03/24 16:13: POC Glucose 132 H 12/03/24 22:59: POC Glucose 129 H 12/04/24 06:00: POC Glucose 125 H Microbiology: Microbiology 11/30/24 11:05 Interface Orders Stool Occult Blood (JJ) - Final 11/30/24 03:45 Vomitus Gastric Occult Blood - Final D/C Instructions DC O2, CPAP, BIPAP Needs Home O2 Discharge instructions: Yes Type of respiratory needs?: Oxygen Oxygen frequency: Continuous Continuous oxygen liters per minute: 2 L DC home with Oxygen: Yes Home O2 MD Review: I have reviewed the oxygen testing, and the patient qualifies for home oxygen equipment and portability. The patient is mobile in the home and the community. Meaningful Use Info Meaningful Use Meaningful Use Diagnoses (Choose all that apply): None applicable Ischemic Stroke Statin Dosing Therapy Reference: STATIN DOSE THERAPY REFERENCE: * Patients > 75 years receive moderate or high dose statin therapy. * Patients 75 years or YOUNGER should receive HIGH intensity statin dose unless contraindicated. You will be required to document reason for non-treatment if statin daily dose does not meet guidelines. HIGH DOSE STATIN THERAPY DAILY Atorvastatin > than or = to 40 mg Rosuvastatin > than or = to 20 mg Amlodipine + Atorvastatin > than or = to 2.5/40 mg Ezetimibe + Simvastatin 10/80 mg Simvastatin 80mg Discharge Plan Admission Admit Date/Time: 11/28/24 23:45 Primary Reason for Your Visit: Acute debility, esophagitis Attending Provider: Christo Saleem Primary Care Provider: Dane Cobb Consulting Providers: Nanda Kaur; Jr Marie; Mik Cook Instructions Additional Instructions / Restrictions: Discontinue [place] Discharge Orders/Prescriptions Prescriptions: New acetaminophen 325 mg Tablet 650 mg PO Q4H PRN PRN (Reason: Fever, pain 1-07/31) Qty: 0 0RF hydrocodone-acetaminophen 5-325 mg Tablet 1 tab PO Q4H PRN PRN (Reason: Pain Score 4-10) 2 Days Qty: 7 0RF clopidogrel 75 mg Tablet 75 mg PO DAILY Qty: 0 0RF insulin lispro [Humalog KwikPen Insulin] 100 unit/mL Insulin Pen See Protocol subcut ACHS Qty: 0 0RF Protocol: 3. Sliding Scale Insulin Med Dosing Condition: 150-189 mg/dl = 1 unit Condition: 190-229 mg/dl = 2 units Condition: 230-269 mg/dl = 3 units Condition: 270-309 mg/dl = 4 units Condition: 310-349 mg/dl = 5 units Condition: 350-399 mg/dl = 6 units Condition: 400-449 mg/dl = 7 units Condition: Greater than 449 call physician Protocol Text: - Use for Total Daily Dose of Insulin 37-55 units - Obsese, infected, or steroid patients MEDIUM DOSING ALGORITHIM Xarelto 15 mg Tablet 15 mg PO BIDCM Qty: 0 0RF Rx Instructions: 15 mg p.o. twice daily x 21 days-start on 12/04/2024, then 20 mg daily thereafter sucralfate 1 gram Tablet 1 g PO TIDAC Qty: 0 0RF Rx Instructions: Use for 1 month then discontinue sennosides-docusate sodium [Stimulant Laxative Plus] 8.6-50 mg Tablet 2 tab PO BID PRN PRN (Reason: Constipation) Qty: 0 0RF Continued lisinopril 10 MG tablet 10 mg PO DAILY duloxetine 60 MG capsule 60 mg PO DAILY isosorbide mononitrate 30 mg Tablet Extended Release 24 Hr 30 mg PO DAILY saxagliptin 2.5 mg Tablet 2.5 mg PO DAILY loperamide 2 mg Capsule 2 mg PO Q6H PRN (Reason: Diarrhea) rosuvastatin 5 mg tablet 5 mg PO DAILY tamsulosin 0.4 mg capsule 0.4 mg PO DAILY Tradjenta 5 mg tablet 5 mg PO DAILY Discontinued Viberzi 100 mg Tablet 200 mg PO DAILY omega-3 fatty acids 1,000 mg Capsule 1,000 mg PO DAILY clopidogrel 75 mg tablet 75 mg PO DAILY Patient Comments: TAKE 8 TABLETS BY MOUTH ONCE ON DAY 1 FOR FIRST DOSE (LOADING DOSE), THEN 1 TABLET DAILY THEREAFTER Xarelto 15 MG tablet 15 mg PO BIDCM ketoconazole 2 % cream 1 applic topical BID PRN (Reason: exczema) Referrals / Follow Up: Dane Cobb MD [Primary Care Provider] - Disposition Disposition (needs filled in before D/C Order can be placed): [facility] Facility Charges/Coding Visit Charges Inpatient E&M: 82406 Disch Hosp >30min
[2024-12-04] MEDS: Menthol/Lanolin/Calamine/Znox 113 GM Tube 1 APPLIC TOPICAL (09:57)
[2024-12-04] MEDS: DULoxetine Hcl 60 MG Capsule PO (09:57)
[2024-12-04] MEDS: Lidocaine 5% Patch 2 PATCH TOPICAL (09:58)
[2024-12-04] MEDS: Tamsulosin HCl 0.4 MG Capsule PO (09:58)
--- NOTE | 2024-12-04 10:05 | CASEMGMT ---
Social Work- SW met with pt to update on precert approval and potential discharge today. Plan: [facility]; skilled level of care ROSE Underwood
[2024-12-04 11:38] VITALS: BP 126/70; PULSE 70; RESP 20; TEMP 36.4; O2SAT 92
--- NOTE | 2024-12-04 12:22 | CASEMGMT ---
Discharge orders, signed med list, and transport time sent to [facility]. Physicians will transport pt by wheelchair at 1:30p. Nursing, SW, and pt updated. Pt will update his emergency contact (Freddy). Marielos Bennett DC Planning Asst.
--- NOTE | 2024-12-04 12:36 | PHA.DC_ITS ---
Pharmacy [place] Med Reconciliation Pharmacy Service has performed discharge medication reconciliation for this patient upon transfer to [facility] The patient's discharge medication list was reviewed for discrepancies and discrepancies were resolved. Medications at Discharge Home Medications duloxetine 60 mg capsule,delayed release 60 mg PO DAILY depression 01/21/16 lisinopril 10 mg tablet 10 mg PO DAILY blood pressure 01/21/16 isosorbide mononitrate 30 mg tablet,extended release 24 hr 30 mg PO DAILY heart 12/11/22 loperamide 2 mg capsule 2 mg PO Q6H PRN Diarrhea 12/11/22 rosuvastatin 5 mg tablet 5 mg PO DAILY CHOLESTEROL 12/11/22 saxagliptin 2.5 mg tablet 2.5 mg PO DAILY blood sugars 12/11/22 tamsulosin 0.4 mg capsule 0.4 mg PO DAILY retention 11/27/24 linagliptin 5 mg tablet (Tradjenta) 5 mg PO DAILY glucose 11/28/24 acetaminophen 325 mg tablet 650 mg (2 x 325 mg) PO Q4H PRN PRN Fever, pain 1- 10 #0 tabs 12/04/24 clopidogrel 75 mg tablet 75 mg PO DAILY #0 tabs 12/04/24 hydrocodone-acetaminophen 5-325mg 5mg-325mg 1 tab PO Q4H PRN PRN Pain Score 4-10 2 days #7 tabs 12/04/24 insulin lispro 100 unit/mL subcutaneous pen (Humalog KwikPen (U-100) Insulin) See Protocol subcut ACHS #0 mL 12/04/24 rivaroxaban 15 mg tablet (Xarelto) 15 mg PO BIDCM #0 tabs 12/04/24 sennosides 8.6 mg-docusate sodium 50 mg tablet (Stimulant Laxative Plus) 2 tab PO BID PRN PRN Constipation #0 tabs 12/04/24 sucralfate 1 gram tablet 1 g PO TIDAC #0 tabs 12/04/24
--- NOTE | 2024-12-04 12:54 | CASEMGMT ---
Social Work Precert has been obtained.? Physician updated and pt is ready for discharge today.? PASRR form completed in [facility]. SW met with pt and they are agreeable to discharge plan as stated above.? [facility] notified of discharge. Final discharge arrangements and notification to patient/family as per discharge manager business planning.? Disposition:[facility], skilled level of care under convalescent stay. ROSE Underwood
[2024-12-04 16:46] LABS: Bedside Glucose 137 mg/dL (74-106)
== END 2024-12-04 13:55 | disposition skilled nursing facility (03) | DRG 947 ==
LOC: ED 22:59 → MS3 23:46
PROVIDERS: Anesthesiology; Hospitalist; Internal Medicine Gastroenterology; Admitting Provider Family Medicine; Emergency Provider Emergency Medicine; PCP Family Medicine; Visit Provider Internal Medicine
PROC: 0DJ08ZZ Inspection of Upper Intestinal Tract, Via Natural or Artificial Opening Endoscopic (ICD-10-PCS; CPT 43235; principal; 2024-12-01 16:25)
DX: G89.11 Acute pain due to trauma (principal); K20.91 Esophagitis, unspecified with bleeding; S22.058A Other fracture of T5-T6 vertebra, initial encounter for closed fracture; S22.068A Other fracture of T7-T8 thoracic vertebra, initial encounter for closed fracture; K92.0 Hematemesis; D68.2 Hereditary deficiency of other clotting factors; N13.8 Other obstructive and reflux uropathy; S22.42XA Multiple fractures of ribs, left side, initial encounter for closed fracture; Z66 Do not resuscitate; E11.22 Type 2 diabetes mellitus with diabetic chronic kidney disease; N18.32 Chronic kidney disease, stage 3b; I12.9 Hypertensive chronic kidney disease with stage 1 through stage 4 chronic kidney disease, or unspecified chronic kidney disease; F32.A Depression, unspecified; Z68.33 Body mass index [BMI] 33.0-33.9, adult; E78.5 Hyperlipidemia, unspecified; I25.10 Atherosclerotic heart disease of native coronary artery without angina pectoris; G47.33 Obstructive sleep apnea (adult) (pediatric); F41.9 Anxiety disorder, unspecified; K58.9 Irritable bowel syndrome, unspecified; K44.9 Diaphragmatic hernia without obstruction or gangrene; Z79.4 Long term (current) use of insulin; E11.65 Type 2 diabetes mellitus with hyperglycemia; W10.8XXA Fall (on) (from) other stairs and steps, initial encounter; I95.2 Hypotension due to drugs; S00.03XA Contusion of scalp, initial encounter; R19.5 Other fecal abnormalities; M25.512 Pain in left shoulder; Z95.5 Presence of coronary angioplasty implant and graft; Z87.891 Personal history of nicotine dependence; R53.81 Other malaise; E66.811 Obesity, class 1; Z86.718 Personal history of other venous thrombosis and embolism; Z79.02 Long term (current) use of antithrombotics/antiplatelets; Z79.84 Long term (current) use of oral hypoglycemic drugs; N40.1 Benign prostatic hyperplasia with lower urinary tract symptoms; Z79.01 Long term (current) use of anticoagulants; Z88.8 Allergy status to other drugs, medicaments and biological substances; Z79.899 Other long term (current) drug therapy; Z86.711 Personal history of pulmonary embolism; Z68.34 Body mass index [BMI] 34.0-34.9, adult; Z91.198 Patient's noncompliance with other medical treatment and regimen for other reason; T48.1X5A Adverse effect of skeletal muscle relaxants [neuromuscular blocking agents], initial encounter; I49.1 Atrial premature depolarization
CPT/HCPCS: 36415; 70450; 71045; 71046; 71250; 73030; 80048; 80053; 82271; 82274; 82962; 83036; 85025; 85027; 85610; 85730; 93005; 94668; 97116; 97162; 97166; 97530; 97535; 99252; 99284; A4216; G0463; J2405